=== PATIENT | female | born 1945 | race Caucasian/White ===

== ENCOUNTER → 2018-02-13 10:07 | Outpatient (CLI) | payer MEDICARE, OTHER, SELFPAY | PROVIDERS: PCP Student in an Organized Health Care Education/Training Program; Visit Provider Student in an Organized Health Care Education/Training Program | DX: M85.80 Other specified disorders of bone density and structure, unspecified site (principal); M81.0 Age-related osteoporosis without current pathological fracture | CPT/HCPCS: 77080 ==

== ENCOUNTER 2018-04-13 11:44 | Day surgery (SDC) | payer MEDICARE, OTHER, SELFPAY ==
--- NOTE | 2018-04-13 | PATH.2_ITS ---
[facility] Accession Number: [id number] . 01 Material submitted: . 5MM CECAL POLYP . 02 Diagnosis: Cecum, 5 mm Polyp, Biopsy: Tubular adenoma. MRV/04/14/2018 . 02 Electronically signed: . Roxana Alves MD, Pathologist NPI- [id number] . 01 Gross description: . Received in one formalin-filled container, labeled with the patient's name and labeled 5 mm cecal polyp, are three 0.2-0.4 cm portions of tissue, entirely submitted in one cassette. ([id number]) /FRR . 02 Pathologist provided ICD-10: D12.0 . 02 CPT . 101428 Performed at: 01 [facility] [address] [place] [address], [place], [place] [id number] MD Shad Bennett MD Phone: [phone] Performed at: 02 [facility] [address] [place], [place] [id number] MD Roxana Alves MD Phone: [phone]
[2018-04-13 12:22] VITALS: BP 162/72; PULSE 82; RESP 15; TEMP 36.5; O2SAT 100; BMI 25.7
[2018-04-13] MEDS: SODIUM CHLORIDE 0.9% 1,000 ML 200 ML IV (12:27)
--- NOTE | 2018-04-13 12:29 | PM.HP.1 ---
History of Present Illness Chief complaint: [id number] Colonoscopy Patient History Surgical History No history of previous surgery (Chronic) Family History Father No problems noted. Mother No problems noted. Social History household members: spouse Smoking Status: Never smoker Family & Social History Social History: household members spouse Tobacco & Substance use: Smoking Status Never smoker Meds Home Medications Medication Instructions Recorded Confirmed Type MULTIVITAMIN (One Daily 1 tab PO QDAY #0 08/07/11 01/29/18 History Multivitamin) [Vitamin D3] 10,000 iu QDAY #0 08/07/11 01/29/18 History ibuprofen 200 - 600 mg PO TIDP PRN #270 tab 05/07/16 01/29/18 Rx methotrexate sodium 6 tab PO QWEEK #0 06/13/16 01/29/18 History folic acid 1 mg PO QDAY #0 01/20/17 01/29/18 History Lancets See Rx Instructions .ROUTE .QDAY 11/04/17 01/29/18 Rx #100 Test Strips - Freestyle See Rx Instructions .ROUTE QDAY 11/04/17 01/29/18 Rx #100 sitagliptin 50 mg-metformin 1,000 1 tab PO BID #60 tab 11/28/17 01/29/18 Rx mg tablet glipizide 10 mg tablet 10 mg PO BID #98 tab 01/16/18 01/29/18 Rx aspirin 81 mg tablet,delayed 81 mg PO DAILY #30 tab 01/29/18 Rx release clopidogrel 75 mg tablet 75 mg PO QDAY #90 tab 02/18/18 Rx ibandronate 150 mg tablet 150 mg PO QMONTH #1 tab 02/19/18 Rx lisinopril 40 mg tablet 40 mg PO Q DAY #90 tab 02/23/18 Rx simvastatin 20 mg tablet 20 mg PO BEDTIME #90 tab 02/23/18 Rx levothyroxine 100 mcg tablet 100 mcg PO QAM #90 tab 03/03/18 Rx sitagliptin-metformin [Janumet] 1 tab PO BID 04/13/18 04/13/18 History Allergies Allergy/AdvReac Type Severity Reaction Status Date / Time No Known Drug Allergies Allergy Unverified 01/29/18 10:54 Exam Vital Signs (past 8 hours): - 04/13/18 12:22 Temperature 97.7 F Pulse Rate 82 Respiratory Rate 15 Blood Pressure 162/72 H Pulse Oximetry 100 Oxygen Delivery Method Room Air Narrative Exam Narrative: Patient is alert and oriented with no abdominal pain. Lungs are clear with no rales or wheezes heart regular rhythm no murmur abdominal exam soft and nontender no masses rectal exam will be done at time of colonoscopy Assessment & Plan Assessment & Plan narrative: Patient is here for screening colonoscopy is asymptomatic we will proceed with that today patient understands and agrees to the procedure she has had prior colonoscopy with no polyps in her history
[2018-04-13] MEDS: MIDAZOLAM 5 MG/5 ML VIAL IV (12:46)
[2018-04-13] MEDS: fentaNYL 250 MCG/5 ML INJ IV (12:47)
[2018-04-13 13:18] VITALS: BP 153/72; PULSE 82; RESP 16; TEMP 36.4; O2SAT 99
--- NOTE | 2018-04-13 13:19 | PM.OP.1 ---
Operative Date/Time/Diagnoses Date of procedure: 04/13/18 Time of procedure: 13:19 Pre-op diagnosis: Screening colonoscopy asymptomatic Procedure & Clinicians Procedure: Colonoscopy to the cecum with biopsy of cecal polyp Same procedure as scheduled: Yes Click Yes if Unassisted: Yes Anesthesia Type: Sedation Operative Notes Findings: Patient had pandiverticulosis she also had a 5 mm flat polyp in the cecum which I removed with the cold forceps Procedure in detail: Patient was properly identified during surgical pause flexible fiberoptic colonoscope was inserted transanally to the cecum this was done under conscious sedation with Versed and fentanyl. Patient has pantoja diverticulosis she also had a flat 5 mm polyp in the cecum which are removed with cold forceps this was submitted for histopathology procedure is well tolerated Condition: stable Disposition: PACU
[2018-04-13 14:04] VITALS: BP 153/79; PULSE 72; RESP 16; TEMP 37.5; O2SAT 100
== END 2018-04-13 14:18 ==
LOC: ENDO 11:45
PROVIDERS: PCP Student in an Organized Health Care Education/Training Program; Visit Provider Surgery
PROC: 0DJD8ZZ Inspection of Lower Intestinal Tract, Via Natural or Artificial Opening Endoscopic (ICD-10-PCS; CPT 45378; principal; 2018-04-13 13:00)
DX: Z12.11 Encounter for screening for malignant neoplasm of colon (principal); D12.0 Benign neoplasm of cecum
CPT/HCPCS: 45380; 88305; J2250; J3010

== ENCOUNTER → 2020-02-10 12:04 | Outpatient (CLI) | payer MEDICARE, OTHER, SELFPAY ==
[2020-02-10 13:59] LABS: BUN Creatinine Ratio 19.3 (6-22); Blood Urea Nitrogen 17 mg/dL (7-17); Calcium 10.1 mg/dL (8.4-10.2); Carbon Dioxide 21 mmol/L (22-32); Chloride 102 mmol/L (98-107); Estimated Glomerular Filt Rate > 60.0 mL/min (>60); Glucose 328 mg/dL (80-110); HEMOLYSIS < 15 (0-50); Potassium 4.5 mmol/L (3.4-5.1); Sodium 136 mmol/L (137-145)
[2020-02-10 14:01] LABS: Hemoglobin A1C% w Est Avg Glu 8.8 % (4.0-6.0)
== END ==
PROVIDERS: PCP Student in an Organized Health Care Education/Training Program; Referring Provider Student in an Organized Health Care Education/Training Program; Visit Provider Student in an Organized Health Care Education/Training Program
DX: E11.9 Type 2 diabetes mellitus without complications (principal); I10 Essential (primary) hypertension
CPT/HCPCS: 36415; 80048; 83036

== ENCOUNTER → 2020-05-15 11:58 | Outpatient (CLI) | payer MEDICARE, OTHER, SELFPAY ==
[2020-05-15 12:52] LABS: Hemoglobin A1C% w Est Avg Glu 9.1 % (4.0-6.0)
[2020-05-15 12:58] LABS: Alanine Aminotransferase 38 IU/L (<35); Albumin 4.6 g/dL (3.5-5.0); Albumin Globulin Ratio 1.9 (1.0-2.8); Alkaline Phosphatase 71 U/L (38-126); Aspartate Aminotransferase 43 IU/L (14-36); Bilirubin Total 0.3 mg/dL (0.2-1.3); Blood Urea Nitrogen 16 mg/dL (7-17); Calcium 9.7 mg/dL (8.4-10.2); Carbon Dioxide 24 mmol/L (22-32); Chloride 102 mmol/L (98-107); Estimated Glomerular Filt Rate > 60.0 mL/min (>60); Globulin 2.4 g/dL (1.7-4.1); Glucose 217 mg/dL (80-110); HEMOLYSIS < 15 (0-50); Potassium 4.1 mmol/L (3.4-5.1); Sodium 137 mmol/L (137-145)
== END ==
PROVIDERS: PCP Student in an Organized Health Care Education/Training Program; Referring Provider Student in an Organized Health Care Education/Training Program; Visit Provider Student in an Organized Health Care Education/Training Program
DX: E11.9 Type 2 diabetes mellitus without complications (principal); E83.52 Hypercalcemia; I10 Essential (primary) hypertension
CPT/HCPCS: 36415; 80053; 83036

== ENCOUNTER → 2020-05-16 15:53 | Outpatient (CLI) | payer MEDICARE, OTHER, SELFPAY ==
[2020-05-16 16:07] LABS: Appearance Urine UA CLEAR; Bilirubin Urine UA NEGATIVE (NEGATIVE); Color Urine UA YELLOW; Glucose Urine UA NEGATIVE (Negative); Ketones Urine UA NEGATIVE (NEGATIVE); Leukocyte Esterase Urine UA TRACE (NEGATIVE); Nitrite Urine UA NEGATIVE (Negative); Occult Blood Urine UA NEGATIVE (Negative); Protein Urine UA NEGATIVE (Negative); Specific Gravity Urine UA 1.025 (1.000-1.035); Urobilinogen Urine UA 0.2 E.U./dL (0.2)
[2020-05-16 16:18] LABS: Bacteria Urine Occasional (0-1); RBC Urine 0-1/HPF (0-5/HPF); Squamous Epithelial Cell Urine 0-1 /HPF (0-5/HPF); WBC Urine 5-10/HPF (0-5/HPF)
[2020-05-16 17:32] LABS: Creatinine Urine Random 59.3 mg/dL
[2020-05-16 17:40] LABS: Microalbumi Creatinin Ratio Ur 13.4 ug/mg CR (<30); Microalbumin Urine Random 0.8 mg/dL (0-1.6)
== END ==
PROVIDERS: PCP Student in an Organized Health Care Education/Training Program; Referring Provider Student in an Organized Health Care Education/Training Program; Visit Provider Student in an Organized Health Care Education/Training Program
DX: E11.9 Type 2 diabetes mellitus without complications (principal); E83.52 Hypercalcemia; I10 Essential (primary) hypertension
CPT/HCPCS: 81001; 82043; 82570

== ENCOUNTER → 2020-05-29 12:59 | Outpatient (CLI) | payer MEDICARE, OTHER, SELFPAY | PROVIDERS: PCP Student in an Organized Health Care Education/Training Program; Referring Provider Student in an Organized Health Care Education/Training Program; Visit Provider Student in an Organized Health Care Education/Training Program | DX: M85.852 Other specified disorders of bone density and structure, left thigh (principal); Z78.0 Asymptomatic menopausal state; M06.9 Rheumatoid arthritis, unspecified; E11.9 Type 2 diabetes mellitus without complications; Z82.62 Family history of osteoporosis | CPT/HCPCS: 77080 ==

== ENCOUNTER 2020-10-30 11:15 | Outpatient (RCR) | payer MEDICARE, OTHER, SELFPAY ==
--- NOTE | 2020-07-04 16:56 | PT.OIE ---
Current Diagnoses Stiffness of unspecified hip, not elsewhere classified (07/04/20) Muscle weakness (generalized) (07/04/20) Other abnormalities of gait and mobility (07/04/20) Unspecified urinary incontinence (07/04/20) Urgency of urination (07/04/20) Past Medical History (Last Updated 05/21/20 @ 20:38 by Tl Kamara MD) Acquired hypothyroidism (12/13/14) Bilateral carotid artery stenosis (04/18/17) Cataracts, bilateral (2012) Coronary artery stenosis Diabetes (~1996) Essential hypertension (12/13/14) GERD (gastroesophageal reflux disease) Gout Gout involving toe (09/27/15) History of stroke (04/18/17) Hyperlipemia Hyperuricemia (09/27/15) Hypothyroidism Osteopenia (06/28/16) Osteopenia Rheumatoid arthritis (~1996) Shoulder fracture, right (05/2016) Stroke (2009) Type 2 diabetes mellitus without complication, without long-term current use of insulin (12/20/16) Past Surgical History (Last Updated 05/21/20 @ 20:38 by Tl Kamara MD) No history of previous surgery Visit Care Team Role Provider Type Tl Kamara MD Attending Provider Physician Family Provider Primary Care Provider Referring Provider Specialty: Internal Medicine Address: [address] [place] [address], [address], [facility] Email: [email or web address] Physical Therapy Initial Evaluation PT-OP-A Visit Information Start: 06/29/20 18:09 Freq: Status: Active Protocol: Document 07/04/20 12:46 LRN (Rec: 07/04/20 13:38 LRN [id number]) Out-Patient Physical Therapy Visit Information Visit Information Visit Type Initial Evaluation Visit Start Time 12:46 Visit Stop Time 13:36 Total Visit Minutes 50 Visit Number 1 Evaluation Information Evaluation Date 07/04/20 Precautions Precautions PMH per pt: L CVA - 2009, Diabetes II, neuropathy in juana feet, RA, Osteopenia, arthriscopic R knee surgery 2007, dizziness, controlled HBP, falls (almost fell last week while carrying groceries up stairs, last fall was 4 yrs ago when tripped on cat and fractured R shoulder). PT-OP-B Current Condition Start: 06/29/20 18:09 Freq: Status: Active Protocol: Document 07/04/20 12:46 LRN (Rec: 07/04/20 13:38 LRN [id number]) Current Condition History of Current Condition Onset Date 1 yr ago with worsening in the past 6 months Current Complaints Urinary incontinence at night and sometimes durig the day. History of Current Condition Urinary urgency and incontinence. Once recognizes she has to urinate she is not able to make it to the toilet to urinate. During the nighttime and sometimes during the day. Has been doing some exercises given by Dr. Kamara and it has helped. Prior Treatments and Tests Exercises given by Dr. Kamara. Future Testing and Treatments Planned None Developmental History Developmental History Has had 2 vaginal births with no complications. Had urinary leakage during second but not afterwards. Has had L CVA with R sided weakness (pt is R handed), but did not affect urinary continence. Treatment Goals Patient/Caregiver Goals Pt goal is to not have to use depends and be able to make it to bathroom without leaking, and to be able to return to an exercise gym routine at [employer]. Prior Functional Status Baseline Function- ADL's Independent Baseline Function- Mobility Independent Baseline Function- Gait Ambs with step to gait due to L CVA Baseline Function- Recreation/Hobbies Exercised at [employer] prior to pandemic. Baseline Function- Other No urinary leakage 1 yr ago. Was able to go to [place] to [place] (30 minutes) without leakage, but needed to use bathroom in [place]. Current Functional Impairments (Reported) Functional Limitations- ADL's Urinary leakage after travelling from [place] to [place] (30 minutes). Functional Limitations- Recreation/ Has not returned to [employer] for exercise. 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 PT-OP-C Subjective Start: 06/29/20 18:09 Freq: Status: Active Protocol: Document 07/04/20 12:46 LRN (Rec: 07/04/20 13:38 LRN [id number]) Patient Questionnaires Pelvic Pain and Urgency/Frequency Patient Symptom Scale Pelvic Pain Score 7 PT-OP-J Posture/Palpation/Skin Start: 06/29/20 18:09 Freq: Status: Active Protocol: Document 07/04/20 12:46 LRN (Rec: 07/04/20 13:38 LRN [id number]) Posture Evaluation Position Standing Head/C-Spine Posture Forward Head Pelvis Posture Anteriorly Tilted Weight Distribution Balanced Hip Posture (L) Externally Rotated,(R) Externally Rotated Ankle/Foot Posture (L) Forefoot Abducted,(R) Forefoot Abducted Comments Posture Comments Wide stance, 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 PT-OP-K Range of Motion Start: 06/29/20 18:09 Freq: Status: Active Protocol: Document 07/04/20 12:46 LRN (Rec: 07/04/20 13:38 LRN [id number]) Hip Goniometric Range of Motion Hip Right Passive Hip ROM WFL No Testing Position Supine Straight Leg Raise 75 Abduction 32 Internal Rotation 20 External Rotation 70 Comments PSLR limited by hamstring tightness. Left Passive Testing Position Supine Straight Leg Raise 80 Abduction 39 Internal Rotation 25 External Rotation 75 Comments PSLR limited by medial/lateral knee pain PT-OP-M Strength Start: 06/29/20 18:09 Freq: Status: Active Protocol: Document 07/04/20 12:46 LRN (Rec: 07/04/20 13:38 LRN [id number]) Trunk Strength Trunk Manual Muscle Testing Core Stabilization Poor core stabilization with MMT of LE's. Hip Strength Hip Manual Muscle Testing Right Flexion (L2) 3 Fair Extension (S1) 3- Fair- Abduction 3 Fair Adduction 2 Poor External Rotation 3- Fair- Internal Rotation 3+ Fair+ Left Flexion (L2) 3+ Fair+ Extension (S1) 3+ Fair+ Abduction 3 Fair Adduction 2+ Poor+ External Rotation 3 Fair Internal Rotation 2+ Poor+ Comments Hip flex: pelvis rotates left (decreased R rot strength) PT-OP-Q Treatments Start: 06/29/20 18:09 Freq: Status: Active Protocol: Document 07/04/20 12:46 LRN (Rec: 07/04/20 13:38 LRN [id number]) Self-Care/Home Management Treatment Education Other Education Educated and discussed results of evaluation, discussed goals and plan of care, pt agreeable. Activities Self-Care/Home Management Activities Issued handouts for bladder diary with instructions in completion of filling out diary for 7 days. Issued & reviewed how to perform a Kegel exercise. Pt to continue exercises given by her referring physician. PT-OP-T Assessment and Plan Start: 06/29/20 18:09 Freq: Status: Active Protocol: Document 07/04/20 12:46 LRN (Rec: 07/04/20 13:38 LRN [id number]) Physical Therapy Assessment Rehab Potential Rehabilitation Potential Good Evaluation Complexity Number of Personal Factors/Comorbidities 1-2 Number of Body Systems Impaired 4 or More Clinical Presentation at Evaluation Evolving Impairments Impairments Activity Tolerance,Balance,ROM ,Soft Tissue Mobility,Strength Goals Four Impairment Decreased R LE and core strength Short Term Goal (STG) Pt will be independent in a HEP of hip and core stengthening exercises. STG Duration 08/24/20 [place] Farmer Goal (LTG) Pt will be able to stabilize her core during ex's of her LE 's. LTG Duration 10/02/20 Three Impairment Urinary incontinence (pt not able to make it to bathroom without leaking) Short Term Goal (STG) Pt will be able to perform a PF contraction in the absence of abdominal/gluteal muscles, and will be educated in urinary delay technique. STG Duration 07/28/20 Halfway Goal (LTG) With an urge to urinate, pt will be able to maintain urinary continence in the presence of a strong urge in order to make it to the bathroom without leaking. LTG Duration 10/02/20 Two Impairment Urinary leakage requiring use of depends daily Short Term Goal (STG) Improve PF strength with pt able to decrease use of depends pad. STG Duration 08/24/20 Halfway Goal (LTG) Pt will not have to use depends daily and will be able to decrease pad use to a mini pad daily. LTG Duration 10/02/20 One Impairment Lacks appropriate self care HEP. Short Term Goal (STG) Pt will be aware of the sensation of a proper PF contraction. STG Duration 07/28/20 Halfway Goal (LTG) Pt will be independent in a self care HEP for PF strengthening. LTG Duration 10/02/20 Assessment Summary Assessment Pt is a 74 yo female who has had reportedly progressive weakening of the R side of her body to almost post-stroke like condition during the COVID pandemic. She has noticed with her progressive weakening she has become urinary incontinent in the presence of an urge during the day and nighttime. She presents with decreased posture, decreased core & hip strength, decreased hip mobility (mainly IR) with the right worse than left. Extra time was taken throughout the assessment due to the slower nature of the patient in responding and moving and because she was hesitiation to have her PF examined; physical assessment of the PF was held until next visit. The pt also demonstrates unsteadiness in standing and a step to independent gait. The pt will benefit from skilled physical therapy for pelvic floor rehab and for strengthening of her LE's and core. Physical Therapy Plan Frequency and Duration Frequency of Treatment 1x/Week Plan of Care Start Date 07/04/20 Plan of Care End Date 10/02/20 Therapeutic Interventions Therapeutic Interventions Home Exercise Program,Joint Mobilizations,Manual Therapy, Neuromuscular Re-education, Patient/Caregiver Education, Self-Care/Home Management,Soft Tissue Mobilization, Therapeutic Activities, Therapeutic Exercises Modalities Biofeedback,Electric Stimulation Next Visit Focus/Plan Next Note Type Treatment Note Next Visit Plan Assess PF, review bladder diary and discuss foods, and water intake, pt education in proper Kegel without use of substitute muscles, pt education in proper perineum care, deep breathing and transfers, PF/core/hip strengthening, improve hip mobility, assess abdominal soft tissue (bladder) mobility .
--- NOTE | 2020-07-11 12:32 | PT.OTN ---
Current Diagnoses Stiffness of unspecified hip, not elsewhere classified (07/11/20) Muscle weakness (generalized) (07/11/20) Other abnormalities of gait and mobility (07/11/20) Unspecified urinary incontinence (07/11/20) Urgency of urination (07/11/20) Physical Therapy Treatment Note PT-OP-A Visit Information Start: 06/29/20 18:09 Freq: Status: Active Protocol: Document 07/11/20 11:19 LRN (Rec: 07/11/20 12:32 LRN [id number]) Out-Patient Physical Therapy Visit Information Visit Information Visit Type Treatment Note Visit Start Time 11:19 Visit Stop Time 12:00 Total Visit Minutes 41 Visit Number 2 Evaluation Information Evaluation Date 07/04/20 Precautions Precautions PMH per pt: L CVA - 2009, Diabetes II, neuropathy in juana feet, RA, Osteopenia, arthriscopic R knee surgery 2007, dizziness, controlled HBP, falls (almost fell last week while carrying groceries up stairs, last fall was 4 yrs ago when tripped on cat and fractured R shoulder). PT-OP-B Current Condition Start: 06/29/20 18:09 Freq: Status: Active Protocol: Document 07/04/20 12:46 LRN (Rec: 07/04/20 13:38 LRN [id number]) Current Condition History of Current Condition Onset Date 1 yr ago with worsening in the past 6 months Current Complaints Urinary incontinence at night and sometimes durig the day. History of Current Condition Urinary urgency and incontinence. Once recognizes she has to urinate she is not able to make it to the toilet to urinate. During the nighttime and sometimes during the day. Has been doing some exercises given by Dr. Kamara and it has helped. Prior Treatments and Tests Exercises given by Dr. Kamara. Future Testing and Treatments Planned None Developmental History Developmental History Has had 2 vaginal births with no complications. Had urinary leakage during second but not afterwards. Has had L CVA with R sided weakness (pt is R handed), but did not affect urinary continence. Treatment Goals Patient/Caregiver Goals Pt goal is to not have to use depends and be able to make it to bathroom without leaking, and to be able to return to an exercise gym routine at [employer]. Prior Functional Status Baseline Function- ADL's Independent Baseline Function- Mobility Independent Baseline Function- Gait Ambs with step to gait due to L CVA Baseline Function- Recreation/Hobbies Exercised at [employer] prior to pandemic. Baseline Function- Other No urinary leakage 1 yr ago. Was able to go to [place] to [place] (30 minutes) without leakage, but needed to use bathroom in [place]. Current Functional Impairments (Reported) Functional Limitations- ADL's Urinary leakage after travelling from [place] to [place] (30 minutes). Functional Limitations- Recreation/ Has not returned to [employer] for exercise. 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 PT-OP-C Subjective Start: 06/29/20 18:09 Freq: Status: Active Protocol: Document 07/11/20 11:19 LRN (Rec: 07/11/20 12:32 LRN [id number]) OP-PT Subjective Patient Comments Patient Comments Good, did bladder diary. PT-OP-I Pelvic Floor Start: 06/29/20 18:09 Freq: Status: Active Protocol: Document 07/11/20 11:19 LRN (Rec: 07/11/20 12:32 LRN [id number]) Pelvic Floor Assessment Pelvic Clock Pelvic Clock 3-6 Tightness Pelvic Clock Other Pelvic Clock 3-6: Weakness and tightness of deep PF muscles. Prolapse Prolapse Comments Poor visualization due to small vaginal opening. No apparent prolapse. Contraction Ability Voluntary Relaxation Moderate Manual Muscle Testing Right 3 Manual Muscle Testing Anterior 1 Manual Muscle Testing Posterior 3 Muscle Endurance (Seconds) 3 Comments Pelvic Floor Comments MMT Left: Quick Flicks 0/5, Long holds, 3 secs. Quick Flicks: 10 on R side Muscle Endurance: 3 secs, weaker contraction on left. Deep PF: tight left side, weak left side. PT-OP-J Posture/Palpation/Skin Start: 06/29/20 18:09 Freq: Status: Active Protocol: Document 07/04/20 12:46 LRN (Rec: 07/04/20 13:38 LRN [id number]) Posture Evaluation Position Standing Head/C-Spine Posture Forward Head Pelvis Posture Anteriorly Tilted Weight Distribution Balanced Hip Posture (L) Externally Rotated,(R) Externally Rotated Ankle/Foot Posture (L) Forefoot Abducted,(R) Forefoot Abducted Comments Posture Comments Wide stance, 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 PT-OP-K Range of Motion Start: 06/29/20 18:09 Freq: Status: Active Protocol: Document 07/04/20 12:46 LRN (Rec: 07/04/20 13:38 LRN [id number]) Hip Goniometric Range of Motion Hip Right Passive Hip ROM WFL No Testing Position Supine Straight Leg Raise 75 Abduction 32 Internal Rotation 20 External Rotation 70 Comments PSLR limited by hamstring tightness. Left Passive Testing Position Supine Straight Leg Raise 80 Abduction 39 Internal Rotation 25 External Rotation 75 Comments PSLR limited by medial/lateral knee pain PT-OP-M Strength Start: 06/29/20 18:09 Freq: Status: Active Protocol: Document 07/04/20 12:46 LRN (Rec: 07/04/20 13:38 LRN [id number]) Trunk Strength Trunk Manual Muscle Testing Core Stabilization Poor core stabilization with MMT of LE's. Hip Strength Hip Manual Muscle Testing Right Flexion (L2) 3 Fair Extension (S1) 3- Fair- Abduction 3 Fair Adduction 2 Poor External Rotation 3- Fair- Internal Rotation 3+ Fair+ Left Flexion (L2) 3+ Fair+ Extension (S1) 3+ Fair+ Abduction 3 Fair Adduction 2+ Poor+ External Rotation 3 Fair Internal Rotation 2+ Poor+ Comments Hip flex: pelvis rotates left (decreased R rot strength) PT-OP-Q Treatments Start: 06/29/20 18:09 Freq: Status: Active Protocol: Document 07/11/20 11:19 LRN (Rec: 07/11/20 12:32 LRN [id number]) Therapeutic Exercises Supine Exercises PF contraction Supine Exercise Name PF training in isolation of substitute muscles. Reps/Minutes 9' Comments PF assessment performed Deep Breathing Supine Exercise Name Deep Breathing Reps/Minutes 3' Comments Training for slower breaths Self-Care/Home Management Treatment Education Patient Education Home Exercise Program Other Education Discussed all aspects of pt's bladder diary with recognition of norm values for hydration, voiding times, times between voids, addition of drinks with non-acidic fruits, thirst mechanism. Activities Self-Care/Home Management Activities I/S in deep breathing over 5-6 secs, isolation of PF muscles from abdominal/gluteal and hip AD muscles. Issued & reviewed Urinary delay technique. PT-OP-T Assessment and Plan Start: 06/29/20 18:09 Freq: Status: Active Protocol: Document 07/11/20 11:19 LRN (Rec: 07/11/20 12:32 LRN [id number]) Physical Therapy Assessment Goals Four Impairment Decreased R LE and core strength Short Term Goal (STG) Pt will be independent in a HEP of hip and core stengthening exercises. STG Duration 08/24/20 [employer] Consultant Goal (LTG) Pt will be able to stabilize her core during ex's of her LE 's. LTG Duration 10/02/20 Three Impairment Urinary incontinence (pt not able to make it to bathroom without leaking) Short Term Goal (STG) Pt will be able to perform a PF contraction in the absence of abdominal/gluteal muscles, and will be educated in urinary delay technique. (07/11/20: Initiated training for isolation of PF contraction & urinary delay techinque) STG Duration 07/28/20 (07/11/20: Progressed ) Usp Goal (LTG) With an urge to urinate, pt will be able to maintain urinary continence in the presence of a strong urge in order to make it to the bathroom without leaking. LTG Duration 10/02/20 Two Impairment Urinary leakage requiring use of depends daily Short Term Goal (STG) Improve PF strength with pt able to decrease use of depends pad. STG Duration 08/24/20 Regional Engagement Consultant Goal (LTG) Pt will not have to use depends daily and will be able to decrease pad use to a mini pad daily. LTG Duration 10/02/20 One Impairment Lacks appropriate self care HEP. Short Term Goal (STG) Pt will be aware of the sensation of a proper PF contraction. STG Duration 07/28/20 Usp Goal (LTG) Pt will be independent in a self care HEP for PF strengthening. LTG Duration 10/02/20 (07/11/20: Progressed) Progress Towards Goals Progress Comments Verbal progression of self care and HEP. Assessment Summary Assessment Pt presents with poor PF tissue health with thin drying skin and mild increased redness. Her vaginal tissued are increased in redness but health (not dry). She has tightness of L deep PF and hip ER's, as well as weak in her superficial PF muscles. Endurance is decreased to 3 secs. Review of bladder diary shows pt is drinking ~1/2 of recommended values (of 1/2 body weight, but pt is receptive to increasing fluids . The pt uses substitute ms to obtain a PF contraction; therefore further training and PF awareness for proper contraction is needed. Physical Therapy Plan Frequency and Duration Frequency of Treatment 1x/Week Plan of Care Start Date 07/04/20 Plan of Care End Date 10/02/20 Next Visit Focus/Plan Next Note Type Treatment Note Next Visit Plan Review proper Kegel without use of substitute muscles & deep breathing. Pt education in proper perineum care and proper breathing with transfers, PF/core/hip strengthening, improve hip mobility, assess abdominal soft tissue (bladder) mobility .
--- NOTE | 2020-07-25 17:12 | PT.OTN ---
Current Diagnoses Stiffness of unspecified hip, not elsewhere classified (07/25/20) Muscle weakness (generalized) (07/25/20) Other abnormalities of gait and mobility (07/25/20) Unspecified urinary incontinence (07/25/20) Urgency of urination (07/25/20) Physical Therapy Treatment Note PT-OP-A Visit Information Start: 06/29/20 18:09 Freq: Status: Active Protocol: Document 07/25/20 11:18 LRN (Rec: 07/25/20 12:15 LRN [id number]) Out-Patient Physical Therapy Visit Information Visit Information Visit Type Treatment Note Visit Start Time 11:18 Visit Stop Time 12:08 Total Visit Minutes 50 Visit Number 3 Evaluation Information Evaluation Date 07/04/20 Precautions Precautions PMH per pt: L CVA - 2009, Diabetes II, neuropathy in juana feet, RA, Osteopenia, arthriscopic R knee surgery 2007, dizziness, controlled HBP, falls (almost fell last week while carrying groceries up stairs, last fall was 4 yrs ago when tripped on cat and fractured R shoulder). PT-OP-B Current Condition Start: 06/29/20 18:09 Freq: Status: Active Protocol: Document 07/04/20 12:46 LRN (Rec: 07/04/20 13:38 LRN [id number]) Current Condition History of Current Condition Onset Date 1 yr ago with worsening in the past 6 months Current Complaints Urinary incontinence at night and sometimes durig the day. History of Current Condition Urinary urgency and incontinence. Once recognizes she has to urinate she is not able to make it to the toilet to urinate. During the nighttime and sometimes during the day. Has been doing some exercises given by Dr. Kamara and it has helped. Prior Treatments and Tests Exercises given by Dr. Kamara. Future Testing and Treatments Planned None Developmental History Developmental History Has had 2 vaginal births with no complications. Had urinary leakage during second but not afterwards. Has had L CVA with R sided weakness (pt is R handed), but did not affect urinary continence. Treatment Goals Patient/Caregiver Goals Pt goal is to not have to use depends and be able to make it to bathroom without leaking, and to be able to return to an exercise gym routine at [employer]. Prior Functional Status Baseline Function- ADL's Independent Baseline Function- Mobility Independent Baseline Function- Gait Ambs with step to gait due to L CVA Baseline Function- Recreation/Hobbies Exercised at [employer] prior to pandemic. Baseline Function- Other No urinary leakage 1 yr ago. Was able to go to [place] to [place] (30 minutes) without leakage, but needed to use bathroom in [place]. Current Functional Impairments (Reported) Functional Limitations- ADL's Urinary leakage after travelling from [place] to [place] (30 minutes). Functional Limitations- Recreation/ Has not returned to [employer] for exercise. 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 PT-OP-C Subjective Start: 06/29/20 18:09 Freq: Status: Active Protocol: Document 07/25/20 11:18 LRN (Rec: 07/25/20 12:15 LRN [id number]) OP-PT Subjective Patient Comments Patient Comments No bleeding after last exam. Had sex (penis at opening) since last in. She had no problems, no bleeding. PT-OP-I Pelvic Floor Start: 06/29/20 18:09 Freq: Status: Active Protocol: Document 07/11/20 11:19 LRN (Rec: 07/11/20 12:32 LRN [id number]) Pelvic Floor Assessment Pelvic Clock Pelvic Clock 3-6 Tightness Pelvic Clock Other Pelvic Clock 3-6: Weakness and tightness of deep PF muscles. Prolapse Prolapse Comments Poor visualization due to small vaginal opening. No apparent prolapse. Contraction Ability Voluntary Relaxation Moderate Manual Muscle Testing Right 3 Manual Muscle Testing Anterior 1 Manual Muscle Testing Posterior 3 Muscle Endurance (Seconds) 3 Comments Pelvic Floor Comments MMT Left: Quick Flicks 0/5, Long holds, 3 secs. Quick Flicks: 10 on R side Muscle Endurance: 3 secs, weaker contraction on left. Deep PF: tight left side, weak left side. 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 PT-OP-K Range of Motion Start: 06/29/20 18:09 Freq: Status: Active Protocol: Document 07/04/20 12:46 LRN (Rec: 07/04/20 13:38 LRN [id number]) Hip Goniometric Range of Motion Hip Right Passive Hip ROM WFL No Testing Position Supine Straight Leg Raise 75 Abduction 32 Internal Rotation 20 External Rotation 70 Comments PSLR limited by hamstring tightness. Left Passive Testing Position Supine Straight Leg Raise 80 Abduction 39 Internal Rotation 25 External Rotation 75 Comments PSLR limited by medial/lateral knee pain PT-OP-M Strength Start: 06/29/20 18:09 Freq: Status: Active Protocol: Document 07/04/20 12:46 LRN (Rec: 07/04/20 13:38 LRN [id number]) Trunk Strength Trunk Manual Muscle Testing Core Stabilization Poor core stabilization with MMT of LE's. Hip Strength Hip Manual Muscle Testing Right Flexion (L2) 3 Fair Extension (S1) 3- Fair- Abduction 3 Fair Adduction 2 Poor External Rotation 3- Fair- Internal Rotation 3+ Fair+ Left Flexion (L2) 3+ Fair+ Extension (S1) 3+ Fair+ Abduction 3 Fair Adduction 2+ Poor+ External Rotation 3 Fair Internal Rotation 2+ Poor+ Comments Hip flex: pelvis rotates left (decreased R rot strength) PT-OP-Q Treatments Start: 06/29/20 18:09 Freq: Status: Active Protocol: Document 07/25/20 11:18 LRN (Rec: 07/25/20 12:15 LRN [id number]) Therapeutic Exercises Supine Exercises Long Hold PF contraction Supine Exercise Name 5 Long Hold PF contraction Reps/Minutes 4' Comments Extra time for training for double time relaxation & PF isolation PF contraction Supine Exercise Name PF training in isolation of substitute muscles. Reps/Minutes 9' (Quick Flicks and Long Holds) Comments PF assessment performed Sidelying Exercises PF w/Hip AD Sidelying Exercise Name PF w/Hip AD (R foot in front of L LE) Side left Reps/Minutes 4' Comments Extra time taken to find best position to ex Standing Exercises Bladder retraining Standing Exercise Name Bladder retraining for going to bathroom Reps/Minutes 18' Comments Practiced delay technique as if in AM. Self-Care/Home Management Treatment Education Patient Education Home Exercise Program Other Education Answered pt's questions regarding bladder retrainng and foods/fluids intake. And discussed amounts. Pt has handouts on bladder irritant foods and fluids. Educated pt at length in Genital hygiene for Women & General Vulvar Care with handout issued. Activities Self-Care/Home Management Activities Written I/S for adding HEP: Quick Flicks with L hip AD in sidelie to improve L lateral wall strength. Pt to work on: Delay technique for first in morning , Deep Breathing of 5-6 secs, PF Quick Flicks with L hip AD & Long Holds of 5 secs. PT-OP-T Assessment and Plan Start: 06/29/20 18:09 Freq: Status: Active Protocol: Document 07/25/20 11:18 LRN (Rec: 07/25/20 12:15 LRN [id number]) Physical Therapy Assessment Goals Four Impairment Decreased R LE and core strength Short Term Goal (STG) Pt will be independent in a HEP of hip and core stengthening exercises. STG Duration 08/24/20 Tourism Radio Presenter Goal (LTG) Pt will be able to stabilize her core during ex's of her LE 's. LTG Duration 10/02/20 Three Impairment Urinary incontinence (pt not able to make it to bathroom without leaking) Short Term Goal (STG) Pt will be able to perform a PF contraction in the absence of abdominal/gluteal muscles, and will be educated in urinary delay technique. STG Duration 07/28/20 (07/25/20: MET GOAL) Tourism Radio Presenter Goal (LTG) With an urge to urinate, pt will be able to maintain urinary continence in the presence of a strong urge in order to make it to the bathroom without leaking. (07/25/20: Continent except for first thing in the morning). LTG Duration 10/02/20 Two Impairment Urinary leakage requiring use of depends daily Short Term Goal (STG) Improve PF strength with pt able to decrease use of depends pad. STG Duration 08/24/20 Tourism Radio Presenter Goal (LTG) Pt will not have to use depends daily and will be able to decrease pad use to a mini pad daily. LTG Duration 10/02/20 One Impairment Lacks appropriate self care HEP. Short Term Goal (STG) Pt will be aware of the sensation of a proper PF contraction. STG Duration 07/28/20 Tourism Radio Presenter Goal (LTG) Pt will be independent in a self care HEP for PF strengthening. LTG Duration 10/02/20 (07/25/20: Progressed ) Progress Towards Goals Progress Comments Progression of HEP Assessment Summary Assessment Pt able to perform Quick flick ex's, and she feels the PF lift with long holds. Pt needs extra time with therapy for repetition and review with program. Physical Therapy Plan Frequency and Duration Frequency of Treatment 1x/Week Plan of Care Start Date 07/04/20 Plan of Care End Date 10/02/20 Next Visit Focus/Plan Next Note Type Treatment Note Next Visit Plan Review proper breathing with transfers, PF/core/hip strengthening, improve hip mobility, assess abdominal soft tissue (bladder) mobility .
--- NOTE | 2020-08-01 12:23 | PT.OTN ---
Current Diagnoses Stiffness of unspecified hip, not elsewhere classified (08/01/20) Muscle weakness (generalized) (08/01/20) Other abnormalities of gait and mobility (08/01/20) Unspecified urinary incontinence (08/01/20) Urgency of urination (08/01/20) Physical Therapy Treatment Note PT-OP-A Visit Information Start: 06/29/20 18:09 Freq: Status: Active Protocol: Document 08/01/20 11:14 LRN (Rec: 08/01/20 12:22 LRN [id number]) Out-Patient Physical Therapy Visit Information Visit Information Visit Type Treatment Note Visit Start Time 11:14 Visit Stop Time 12:07 Total Visit Minutes 52 Visit Number 4 Evaluation Information Evaluation Date 07/04/20 Precautions Precautions PMH per pt: L CVA - 2009, Diabetes II, neuropathy in juana feet, RA, Osteopenia, arthriscopic R knee surgery 2007, dizziness, controlled HBP, falls (almost fell last week while carrying groceries up stairs, last fall was 4 yrs ago when tripped on cat and fractured R shoulder). PT-OP-B Current Condition Start: 06/29/20 18:09 Freq: Status: Active Protocol: Document 07/04/20 12:46 LRN (Rec: 07/04/20 13:38 LRN [id number]) Current Condition History of Current Condition Onset Date 1 yr ago with worsening in the past 6 months Current Complaints Urinary incontinence at night and sometimes durig the day. History of Current Condition Urinary urgency and incontinence. Once recognizes she has to urinate she is not able to make it to the toilet to urinate. During the nighttime and sometimes during the day. Has been doing some exercises given by Dr. Kamara and it has helped. Prior Treatments and Tests Exercises given by Dr. Kamara. Future Testing and Treatments Planned None Developmental History Developmental History Has had 2 vaginal births with no complications. Had urinary leakage during second but not afterwards. Has had L CVA with R sided weakness (pt is R handed), but did not affect urinary continence. Treatment Goals Patient/Caregiver Goals Pt goal is to not have to use depends and be able to make it to bathroom without leaking, and to be able to return to an exercise gym routine at [employer]. Prior Functional Status Baseline Function- ADL's Independent Baseline Function- Mobility Independent Baseline Function- Gait Ambs with step to gait due to L CVA Baseline Function- Recreation/Hobbies Exercised at [employer] prior to pandemic. Baseline Function- Other No urinary leakage 1 yr ago. Was able to go to [place] to [place] (30 minutes) without leakage, but needed to use bathroom in [place]. Current Functional Impairments (Reported) Functional Limitations- ADL's Urinary leakage after travelling from [place] to [place] (30 minutes). Functional Limitations- Recreation/ Has not returned to [employer] for exercise. 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 PT-OP-C Subjective Start: 06/29/20 18:09 Freq: Status: Active Protocol: Document 08/01/20 11:14 LRN (Rec: 08/01/20 12:22 LRN [id number]) OP-PT Subjective Patient Comments Patient Comments Had an attack of Sciatic with L LE pain from back to end of toes, lasting 5 days. States in AM now leaks less or not at all using urinary delay technique. PT-OP-I Pelvic Floor Start: 06/29/20 18:09 Freq: Status: Active Protocol: Document 07/11/20 11:19 LRN (Rec: 07/11/20 12:32 LRN [id number]) Pelvic Floor Assessment Pelvic Clock Pelvic Clock 3-6 Tightness Pelvic Clock Other Pelvic Clock 3-6: Weakness and tightness of deep PF muscles. Prolapse Prolapse Comments Poor visualization due to small vaginal opening. No apparent prolapse. Contraction Ability Voluntary Relaxation Moderate Manual Muscle Testing Right 3 Manual Muscle Testing Anterior 1 Manual Muscle Testing Posterior 3 Muscle Endurance (Seconds) 3 Comments Pelvic Floor Comments MMT Left: Quick Flicks 0/5, Long holds, 3 secs. Quick Flicks: 10 on R side Muscle Endurance: 3 secs, weaker contraction on left. Deep PF: tight left side, weak left side. 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 PT-OP-K Range of Motion Start: 06/29/20 18:09 Freq: Status: Active Protocol: Document 07/04/20 12:46 LRN (Rec: 07/04/20 13:38 LRN [id number]) Hip Goniometric Range of Motion Hip Right Passive Hip ROM WFL No Testing Position Supine Straight Leg Raise 75 Abduction 32 Internal Rotation 20 External Rotation 70 Comments PSLR limited by hamstring tightness. Left Passive Testing Position Supine Straight Leg Raise 80 Abduction 39 Internal Rotation 25 External Rotation 75 Comments PSLR limited by medial/lateral knee pain PT-OP-M Strength Start: 06/29/20 18:09 Freq: Status: Active Protocol: Document 07/04/20 12:46 LRN (Rec: 07/04/20 13:38 LRN [id number]) Trunk Strength Trunk Manual Muscle Testing Core Stabilization Poor core stabilization with MMT of LE's. Hip Strength Hip Manual Muscle Testing Right Flexion (L2) 3 Fair Extension (S1) 3- Fair- Abduction 3 Fair Adduction 2 Poor External Rotation 3- Fair- Internal Rotation 3+ Fair+ Left Flexion (L2) 3+ Fair+ Extension (S1) 3+ Fair+ Abduction 3 Fair Adduction 2+ Poor+ External Rotation 3 Fair Internal Rotation 2+ Poor+ Comments Hip flex: pelvis rotates left (decreased R rot strength) PT-OP-Q Treatments Start: 06/29/20 18:09 Freq: Status: Active Protocol: Document 08/01/20 11:14 LRN (Rec: 08/01/20 12:22 LRN [id number]) Therapeutic Exercises Supine Exercises Fig 4 stretch Supine Exercise Name Fig 4 stretch Side bilateral Reps/Minutes 10' Comments Extra time to find max positioning of each hip and for relax after Hands/knees push Supine Exercise Name Hands/knees push Reps/Minutes 8' Comments Extra time for best positioning for back in a neutral Quick Flicks Supine Exercise Name Quick Flick with ball squeeze Reps/Minutes 2' Long Hold PF contraction Supine Exercise Name 6 Long Hold PF contraction f/ b 12 breathing rest Reps/Minutes 6' Comments Extra time for training for double time relaxation & PF isolation PF contraction Supine Exercise Name PF training in isolation of substitute muscles. Reps/Minutes 8' (Quick Flicks and Long Holds) Comments PF assessed with hand on perineum Sitting Exercises Side Sit Piriformis stretch Sitting Exercise Name Side Sit Piriformis stretch Side bilateral Reps/Minutes 5' Comments Extra time for training for max position stretch Therapeutic Activity Therapeutic Activity Sit <> Supine Name Sit <> Supine Reps/Minutes 5' Self-Care/Home Management Treatment Education Patient Education Home Exercise Program Activities Self-Care/Home Management Activities Issued & reviewed HEP: hands/ knees push, and Piriformis & Fig 4 stretch. PT-OP-T Assessment and Plan Start: 06/29/20 18:09 Freq: Status: Active Protocol: Document 08/01/20 11:14 LRN (Rec: 08/01/20 12:22 LRN [id number]) Physical Therapy Assessment Goals Four Impairment Decreased R LE and core strength Short Term Goal (STG) Pt will be independent in a HEP of hip and core stengthening exercises. STG Duration 08/24/20 (08/01/20: Progressing) Manager Of Case Management Goal (LTG) Pt will be able to stabilize her core during ex's of her LE 's. LTG Duration 10/02/20 Three Impairment Urinary incontinence (pt not able to make it to bathroom without leaking) Short Term Goal (STG) Pt will be able to perform a PF contraction in the absence of abdominal/gluteal muscles, and will be educated in urinary delay technique. STG Duration 07/28/20 (07/25/20: MET GOAL) Longterm Goal (LTG) With an urge to urinate, pt will be able to maintain urinary continence in the presence of a strong urge in order to make it to the bathroom without leaking. (07/25/20: Continent except for first thing in the morning). LTG Duration 10/02/20 Two Impairment Urinary leakage requiring use of depends daily Short Term Goal (STG) Improve PF strength with pt able to decrease use of depends pad. STG Duration 08/24/20 Longterm Goal (LTG) Pt will not have to use depends daily and will be able to decrease pad use to a mini pad daily. LTG Duration 10/02/20 One Impairment Lacks appropriate self care HEP. Short Term Goal (STG) Pt will be aware of the sensation of a proper PF contraction. STG Duration 07/28/20 (08/01/20: MET GOAL) Manager Of Case Management Goal (LTG) Pt will be independent in a self care HEP for PF strengthening. LTG Duration 10/02/20 (08/01/20: Progressed) Assessment Summary Assessment Pt was able to perform a PF contraction in isolation and was able to identify the contraction and relaxation phase. Posterior PF contraction is much stronger than anterior PF. Urinary incontinence due to progressive weakening of the R side of her body s/p stroke. She has tightness of hip ER'. Weakness probably persists with L deep PF and superficial PF muscles. Physical Therapy Plan Frequency and Duration Frequency of Treatment 1x/Week Plan of Care Start Date 07/04/20 Plan of Care End Date 10/02/20 Next Visit Focus/Plan Next Note Type Treatment Note Next Visit Plan Re-Review proper breathing with transfers and proper transfer sit<>sup; PF/core rotation/hip strengthening ( avoiding onset of LLE sciatica ), improve hip mobility, assess abdominal soft tissue ( bladder) mobility.
--- NOTE | 2020-08-08 12:16 | PT.OTN ---
Current Diagnoses Stiffness of unspecified hip, not elsewhere classified (08/08/20) Muscle weakness (generalized) (08/08/20) Other abnormalities of gait and mobility (08/08/20) Unspecified urinary incontinence (08/08/20) Urgency of urination (08/08/20) Physical Therapy Treatment Note PT-OP-A Visit Information Start: 06/29/20 18:09 Freq: Status: Active Protocol: Document 08/08/20 11:14 LRN (Rec: 08/08/20 12:15 LRN [id number]) Out-Patient Physical Therapy Visit Information Visit Information Visit Type Treatment Note Visit Start Time 11:14 Visit Stop Time 12:04 Total Visit Minutes 50 Visit Number 5 Precautions Precautions PMH per pt: L CVA - 2009, Diabetes II, neuropathy in juana feet, RA, Osteopenia, arthriscopic R knee surgery 2007, dizziness, controlled HBP, falls (almost fell last week while carrying groceries up stairs, last fall was 4 yrs ago when tripped on cat and fractured R shoulder). PT-OP-B Current Condition Start: 06/29/20 18:09 Freq: Status: Active Protocol: Document 07/04/20 12:46 LRN (Rec: 07/04/20 13:38 LRN [id number]) Current Condition History of Current Condition Onset Date 1 yr ago with worsening in the past 6 months Current Complaints Urinary incontinence at night and sometimes durig the day. History of Current Condition Urinary urgency and incontinence. Once recognizes she has to urinate she is not able to make it to the toilet to urinate. During the nighttime and sometimes during the day. Has been doing some exercises given by Dr. Kamara and it has helped. Prior Treatments and Tests Exercises given by Dr. Kamara. Future Testing and Treatments Planned None Developmental History Developmental History Has had 2 vaginal births with no complications. Had urinary leakage during second but not afterwards. Has had L CVA with R sided weakness (pt is R handed), but did not affect urinary continence. Treatment Goals Patient/Caregiver Goals Pt goal is to not have to use depends and be able to make it to bathroom without leaking, and to be able to return to an exercise gym routine at [employer]. Prior Functional Status Baseline Function- ADL's Independent Baseline Function- Mobility Independent Baseline Function- Gait Ambs with step to gait due to L CVA Baseline Function- Recreation/Hobbies Exercised at [employer] prior to pandemic. Baseline Function- Other No urinary leakage 1 yr ago. Was able to go to [place] to [place] (30 minutes) without leakage, but needed to use bathroom in [place]. Current Functional Impairments (Reported) Functional Limitations- ADL's Urinary leakage after travelling from [place] to [place] (30 minutes). Functional Limitations- Recreation/ Has not returned to [employer] for exercise. 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 PT-OP-C Subjective Start: 06/29/20 18:09 Freq: Status: Active Protocol: Document 08/08/20 11:14 LRN (Rec: 08/08/20 12:15 LRN [id number]) OP-PT Subjective Patient Comments Patient Comments Sciatic and LLE pain is gone. States she is using the delay technique to prevent leakage during the day and 1st in the morning. States she is able to make it to the bathroom first in the [facility]. PT-OP-I Pelvic Floor Start: 06/29/20 18:09 Freq: Status: Active Protocol: Document 08/08/20 11:14 LRN (Rec: 08/08/20 12:15 LRN [id number]) Pelvic Floor Assessment Urine Pads Used In 24 Hours 1 PT-OP-J Posture/Palpation/Skin Start: 06/29/20 18:09 Freq: Status: Active Protocol: Document 07/04/20 12:46 LRN (Rec: 07/04/20 13:38 LRN [id number]) Posture Evaluation Position Standing Head/C-Spine Posture Forward Head Pelvis Posture Anteriorly Tilted Weight Distribution Balanced Hip Posture (L) Externally Rotated,(R) Externally Rotated Ankle/Foot Posture (L) Forefoot Abducted,(R) Forefoot Abducted Comments Posture Comments Wide stance, 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 PT-OP-K Range of Motion Start: 06/29/20 18:09 Freq: Status: Active Protocol: Document 07/04/20 12:46 LRN (Rec: 07/04/20 13:38 LRN [id number]) Hip Goniometric Range of Motion Hip Right Passive Hip ROM WFL No Testing Position Supine Straight Leg Raise 75 Abduction 32 Internal Rotation 20 External Rotation 70 Comments PSLR limited by hamstring tightness. Left Passive Testing Position Supine Straight Leg Raise 80 Abduction 39 Internal Rotation 25 External Rotation 75 Comments PSLR limited by medial/lateral knee pain PT-OP-M Strength Start: 06/29/20 18:09 Freq: Status: Active Protocol: Document 07/04/20 12:46 LRN (Rec: 07/04/20 13:38 LRN [id number]) Trunk Strength Trunk Manual Muscle Testing Core Stabilization Poor core stabilization with MMT of LE's. Hip Strength Hip Manual Muscle Testing Right Flexion (L2) 3 Fair Extension (S1) 3- Fair- Abduction 3 Fair Adduction 2 Poor External Rotation 3- Fair- Internal Rotation 3+ Fair+ Left Flexion (L2) 3+ Fair+ Extension (S1) 3+ Fair+ Abduction 3 Fair Adduction 2+ Poor+ External Rotation 3 Fair Internal Rotation 2+ Poor+ Comments Hip flex: pelvis rotates left (decreased R rot strength) PT-OP-Q Treatments Start: 06/29/20 18:09 Freq: Status: Active Protocol: Document 08/08/20 11:14 LRN (Rec: 08/08/20 12:15 LRN [id number]) Therapeutic Exercises Supine Exercises LE roll in/out Supine Exercise Name LE Roll in/out training Long Hold PF contraction Supine Exercise Name 6 Long Hold PF contraction f/ b 12 breathing rest Reps/Minutes 6' Comments Extra time for training for double time relaxation & PF isolation PF contraction Supine Exercise Name PF training in isolation of substitute muscles. Reps/Minutes 2' Isolation of PF Deep Breathing Supine Exercise Name Deep Breathing Sitting Exercises Pirformis stretch Sitting Exercise Name Piriformis stretch juana with focus on L Side left Reps/Minutes 4' Comments Extra time for pt to show her stretch in standing. Self-Care/Home Management Treatment Education Patient Education Home Exercise Program Other Education Discussed at length with pt of her urinary leakage awareness and discussed method to determine leakage with double layer of underwear. Activities Self-Care/Home Management Activities Issued & reviewed HEP of LE roll in/out ex. PT-OP-T Assessment and Plan Start: 06/29/20 18:09 Freq: Status: Active Protocol: Document 08/08/20 11:14 LRN (Rec: 08/08/20 12:15 LRN [id number]) Physical Therapy Assessment Goals Four Impairment Decreased R LE and core strength Short Term Goal (STG) Pt will be independent in a HEP of hip and core stengthening exercises. STG Duration 08/24/20 (08/01/20: Progressing) Long-Term Goal (LTG) Pt will be able to stabilize her core during ex's of her LE 's. LTG Duration 10/02/20 Three Impairment Urinary incontinence (pt not able to make it to bathroom without leaking) Short Term Goal (STG) Pt will be able to perform a PF contraction in the absence of abdominal/gluteal muscles, and will be educated in urinary delay technique. STG Duration 07/28/20 (07/25/20: MET GOAL) [employer] Goal (LTG) With an urge to urinate, pt will be able to maintain urinary continence in the presence of a strong urge in order to make it to the bathroom without leaking. (07/25/20: Continent except for first thing in the morning). (08/08/20: Pt reported 80% continence with strong urge). LTG Duration 10/02/20 (08/08/20: Improved 80%) Two Impairment Urinary leakage requiring use of depends daily Short Term Goal (STG) Improve PF strength with pt able to decrease use of depends pad. (08/08/20: Changing 1x/day) STG Duration 08/24/20 Long-Term Goal (LTG) Pt will not have to use depends daily and will be able to decrease pad use to a mini pad daily. LTG Duration 10/02/20 One Impairment Lacks appropriate self care HEP. Short Term Goal (STG) Pt will be aware of the sensation of a proper PF contraction. STG Duration 07/28/20 (08/01/20: MET GOAL) [employer] Goal (LTG) Pt will be independent in a self care HEP for PF strengthening. LTG Duration 10/02/20 (08/08/20: Progressed) Progress Towards Goals Progress Comments Progressed HEP. Delay technique has helped with pt urinary incontinence 80%. Assessment Summary Assessment L hip Piriformis is much tighter than R. Pt required training for proper breathing with transfers. Pt needed much cuing to do LE roll in/ out correctly, and was not able to do with PF contractions due to confusion; therefore will hold adding PF contractions until next visit . Tried hands/knees push for core strengthening in sitting, but pt not able to perform correctly. Physical Therapy Plan Frequency and Duration Frequency of Treatment 1x/Week Plan of Care Start Date 07/04/20 Plan of Care End Date 10/02/20 Next Visit Focus/Plan Next Note Type Treatment Note Next Visit Plan Assess abdominal soft tissue ( bladder) mobility. Further practice/training of proper breathing with transfers and body mechanics (sit<>sup); Review L Piriformis stretch in sitting. PF/core rotation/ hip strengthening (avoiding onset of LLE sciatica), improve hip mobility.
--- NOTE | 2020-08-17 16:55 | PT.OTN ---
Current Diagnoses Stiffness of unspecified hip, not elsewhere classified (08/17/20) Muscle weakness (generalized) (08/17/20) Other abnormalities of gait and mobility (08/17/20) Unspecified urinary incontinence (08/17/20) Urgency of urination (08/17/20) Physical Therapy Treatment Note PT-OP-A Visit Information Start: 06/29/20 18:09 Freq: Status: Active Protocol: Document 08/17/20 12:50 LRN (Rec: 08/17/20 13:31 LRN [id number]) Out-Patient Physical Therapy Visit Information Visit Information Visit Type Treatment Note Visit Start Time 12:50 Visit Stop Time 13:30 Total Visit Minutes 40 Visit Number 6 Evaluation Information Evaluation Date 07/04/20 Precautions Precautions PMH per pt: L CVA - 2009, Diabetes II, neuropathy in juana feet, RA, Osteopenia, arthriscopic R knee surgery 2007, dizziness, controlled HBP, falls (almost fell last week while carrying groceries up stairs, last fall was 4 yrs ago when tripped on cat and fractured R shoulder). PT-OP-B Current Condition Start: 06/29/20 18:09 Freq: Status: Active Protocol: Document 07/04/20 12:46 LRN (Rec: 07/04/20 13:38 LRN [id number]) Current Condition History of Current Condition Onset Date 1 yr ago with worsening in the past 6 months Current Complaints Urinary incontinence at night and sometimes durig the day. History of Current Condition Urinary urgency and incontinence. Once recognizes she has to urinate she is not able to make it to the toilet to urinate. During the nighttime and sometimes during the day. Has been doing some exercises given by Dr. Kamara and it has helped. Prior Treatments and Tests Exercises given by Dr. Kamara. Future Testing and Treatments Planned None Developmental History Developmental History Has had 2 vaginal births with no complications. Had urinary leakage during second but not afterwards. Has had L CVA with R sided weakness (pt is R handed), but did not affect urinary continence. Treatment Goals Patient/Caregiver Goals Pt goal is to not have to use depends and be able to make it to bathroom without leaking, and to be able to return to an exercise gym routine at [employer]. Prior Functional Status Baseline Function- ADL's Independent Baseline Function- Mobility Independent Baseline Function- Gait Ambs with step to gait due to L CVA Baseline Function- Recreation/Hobbies Exercised at [employer] prior to pandemic. Baseline Function- Other No urinary leakage 1 yr ago. Was able to go to [place] to [place] (30 minutes) without leakage, but needed to use bathroom in [place]. Current Functional Impairments (Reported) Functional Limitations- ADL's Urinary leakage after travelling from [place] to [place] (30 minutes). Functional Limitations- Recreation/ Has not returned to [email or web address] for exercise. 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 PT-OP-C Subjective Start: 06/29/20 18:09 Freq: Status: Active Protocol: Document 08/17/20 12:50 LRN (Rec: 08/17/20 13:31 LRN [id number]) OP-PT Subjective Patient Comments Patient Comments Leaked x 1, medium leakage with strong urge. PT-OP-I Pelvic Floor Start: 06/29/20 18:09 Freq: Status: Active Protocol: Document 08/08/20 11:14 LRN (Rec: 08/08/20 12:15 LRN [id number]) Pelvic Floor Assessment Urine Pads Used In 24 Hours 1 PT-OP-J Posture/Palpation/Skin Start: 06/29/20 18:09 Freq: Status: Active Protocol: Document 07/04/20 12:46 LRN (Rec: 07/04/20 13:38 LRN [id number]) Posture Evaluation Position Standing Head/C-Spine Posture Forward Head Pelvis Posture Anteriorly Tilted Weight Distribution Balanced Hip Posture (L) Externally Rotated,(R) Externally Rotated Ankle/Foot Posture (L) Forefoot Abducted,(R) Forefoot Abducted Comments Posture Comments Wide stance, 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 PT-OP-K Range of Motion Start: 06/29/20 18:09 Freq: Status: Active Protocol: Document 07/04/20 12:46 LRN (Rec: 07/04/20 13:38 LRN [id number]) Hip Goniometric Range of Motion Hip Right Passive Hip ROM WFL No Testing Position Supine Straight Leg Raise 75 Abduction 32 Internal Rotation 20 External Rotation 70 Comments PSLR limited by hamstring tightness. Left Passive Testing Position Supine Straight Leg Raise 80 Abduction 39 Internal Rotation 25 External Rotation 75 Comments PSLR limited by medial/lateral knee pain PT-OP-M Strength Start: 06/29/20 18:09 Freq: Status: Active Protocol: Document 07/04/20 12:46 LRN (Rec: 07/04/20 13:38 LRN [id number]) Trunk Strength Trunk Manual Muscle Testing Core Stabilization Poor core stabilization with MMT of LE's. Hip Strength Hip Manual Muscle Testing Right Flexion (L2) 3 Fair Extension (S1) 3- Fair- Abduction 3 Fair Adduction 2 Poor External Rotation 3- Fair- Internal Rotation 3+ Fair+ Left Flexion (L2) 3+ Fair+ Extension (S1) 3+ Fair+ Abduction 3 Fair Adduction 2+ Poor+ External Rotation 3 Fair Internal Rotation 2+ Poor+ Comments Hip flex: pelvis rotates left (decreased R rot strength) PT-OP-Q Treatments Start: 06/29/20 18:09 Freq: Status: Active Protocol: Document 08/17/20 12:50 LRN (Rec: 08/17/20 13:31 LRN [id number]) Therapeutic Exercises Supine Exercises LTR stretch Supine Exercise Name LTR stretch Side right Reps/Minutes 4' Comments R Knee rolls restricted vs L. Sitting Exercises Pirformis stretch Sitting Exercise Name Piriformis stretch juana with focus on L Side left Reps/Minutes 4' Comments Extra time for pt to show her stretch in standing. Side Sit Piriformis stretch Sitting Exercise Name Side sit Piriformis stretch review Side left Reps/Minutes 1' Therapeutic Activity Therapeutic Activity Sit <> Supine Name Sit <> Supine w/proper breathing Reps/Minutes 3' Comments Pt light headed on initial sitting from supine. Manual Therapy Treatment Soft Tissue Mobilization Lower abdomen Body Location Lower abdomen, bladder, and small intestine fascial restrictions Mobilization Type Sustained Pressure Intensity/Depth Moderate Body Position Supine Comments Restricted fascial mobility for L SB, L rot, ext. Active movement of LE roll in/ out with small intestine fascial mob. Self-Care/Home Management Treatment Education Other Education Educated pt in foods/beverages bladder irritants with handout issued. PT-OP-T Assessment and Plan Start: 06/29/20 18:09 Freq: Status: Active Protocol: Document 08/17/20 12:50 LRN (Rec: 08/17/20 13:31 LRN [id number]) Physical Therapy Assessment Goals Four Impairment Decreased R LE and core strength Short Term Goal (STG) Pt will be independent in a HEP of hip and core stengthening exercises. STG Duration 08/24/20 (08/01/20: Progressing) [employer] Goal (LTG) Pt will be able to stabilize her core during ex's of her LE 's. LTG Duration 10/02/20 Three Impairment Urinary incontinence (pt not able to make it to bathroom without leaking) Short Term Goal (STG) Pt will be able to perform a PF contraction in the absence of abdominal/gluteal muscles, and will be educated in urinary delay technique. STG Duration 07/28/20 (07/25/20: MET GOAL) Senior Living Goal (LTG) With an urge to urinate, pt will be able to maintain urinary continence in the presence of a strong urge in order to make it to the bathroom without leaking. (07/25/20: Continent except for first thing in the morning). (08/08/20: Pt reported 80% continence with strong urge). LTG Duration 10/02/20 (08/08/20: Improved 80%) Two Impairment Urinary leakage requiring use of depends daily Short Term Goal (STG) Improve PF strength with pt able to decrease use of depends pad. (08/08/20: Changing 1x/day) STG Duration 08/24/20 Senior Living Goal (LTG) Pt will not have to use depends daily and will be able to decrease pad use to a mini pad daily. LTG Duration 10/02/20 One Impairment Lacks appropriate self care HEP. Short Term Goal (STG) Pt will be aware of the sensation of a proper PF contraction. STG Duration 07/28/20 (08/01/20: MET GOAL) Senior Living Goal (LTG) Pt will be independent in a self care HEP for PF strengthening. LTG Duration 10/02/20 (08/17/20: Progressed with education) Assessment Summary Assessment Bladder fascial restriction for L rot/SB & ext. Pt has good understanding of foods to avoid and her L hip ER stretch. Urinary leakage with urgency improving. Physical Therapy Plan Frequency and Duration Frequency of Treatment 1x/Week Plan of Care Start Date 07/04/20 Plan of Care End Date 10/02/20 Next Visit Focus/Plan Next Note Type Treatment Note Next Visit Plan Assess progress towards goals & response to abdominal soft tissue (bladder) mobility. Assess proper breathing with transfers and body mechanics ( sit<>sup); Recheck PF strength /endurance and pt's ability to relax PF. PF/core rotation/ hip strengthening (avoiding onset of LLE sciatica), improve hip mobility. PF strengthening of L lateral wall for quick flicks and long holds of 10 secs.
--- NOTE | 2020-08-24 16:31 | PT.OTN ---
Current Diagnoses Stiffness of unspecified hip, not elsewhere classified (08/24/20) Muscle weakness (generalized) (08/24/20) Other abnormalities of gait and mobility (08/24/20) Unspecified urinary incontinence (08/24/20) Urgency of urination (08/24/20) Physical Therapy Treatment Note PT-OP-A Visit Information Start: 06/29/20 18:09 Freq: Status: Active Protocol: Document 08/24/20 15:05 LRN (Rec: 08/24/20 16:27 LRN [id number]) Out-Patient Physical Therapy Visit Information Visit Information Visit Type Treatment Note Visit Start Time 15:05 Visit Stop Time 15:50 Total Visit Minutes 45 Visit Number 7 Evaluation Information Evaluation Date 07/04/20 Precautions Precautions PMH per pt: L CVA - 2009, Diabetes II, neuropathy in juana feet, RA, Osteopenia, arthriscopic R knee surgery 2007, dizziness, controlled HBP, falls (almost fell last week while carrying groceries up stairs, last fall was 4 yrs ago when tripped on cat and fractured R shoulder). PT-OP-B Current Condition Start: 06/29/20 18:09 Freq: Status: Active Protocol: Document 07/04/20 12:46 LRN (Rec: 07/04/20 13:38 LRN [id number]) Current Condition History of Current Condition Onset Date 1 yr ago with worsening in the past 6 months Current Complaints Urinary incontinence at night and sometimes durig the day. History of Current Condition Urinary urgency and incontinence. Once recognizes she has to urinate she is not able to make it to the toilet to urinate. During the nighttime and sometimes during the day. Has been doing some exercises given by Dr. Kamara and it has helped. Prior Treatments and Tests Exercises given by Dr. Kamara. Future Testing and Treatments Planned None Developmental History Developmental History Has had 2 vaginal births with no complications. Had urinary leakage during second but not afterwards. Has had L CVA with R sided weakness (pt is R handed), but did not affect urinary continence. Treatment Goals Patient/Caregiver Goals Pt goal is to not have to use depends and be able to make it to bathroom without leaking, and to be able to return to an exercise gym routine at [employer]. Prior Functional Status Baseline Function- ADL's Independent Baseline Function- Mobility Independent Baseline Function- Gait Ambs with step to gait due to L CVA Baseline Function- Recreation/Hobbies Exercised at [employer] prior to pandemic. Baseline Function- Other No urinary leakage 1 yr ago. Was able to go to [place] to [place] (30 minutes) without leakage, but needed to use bathroom in [place]. Current Functional Impairments (Reported) Functional Limitations- ADL's Urinary leakage after travelling from [place] to [place] (30 minutes). Functional Limitations- Recreation/ Has not returned to [employer] for exercise. 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 PT-OP-C Subjective Start: 06/29/20 18:09 Freq: Status: Active Protocol: Document 08/24/20 15:05 LRN (Rec: 08/24/20 16:27 LRN [id number]) OP-PT Subjective Patient Comments Patient Comments Set back. Started 08/19/20, lost the urge to go and looses urine in a fluid. PT-OP-I Pelvic Floor Start: 06/29/20 18:09 Freq: Status: Active Protocol: Document 08/24/20 15:05 LRN (Rec: 08/24/20 16:27 LRN [id number]) Pelvic Floor Assessment Prolapse Uterine Prolapse Grade 1 Cystocele Grade 1 Contraction Ability Voluntary Contraction Weak Voluntary Relaxation Weak Manual Muscle Testing Left 2 Manual Muscle Testing Right 0 Manual Muscle Testing Anterior 0 Manual Muscle Testing Posterior 3 Muscle Endurance (Seconds) 4 Comments Pelvic Floor Comments Quick is 6x from posterior PF lift only. Muscle Endurance: 3-4 secs at posterior PF. 0/5 on left or right lateral ceballos. No tenderness of PF or tightness. 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 PT-OP-K Range of Motion Start: 06/29/20 18:09 Freq: Status: Active Protocol: Document 07/04/20 12:46 LRN (Rec: 07/04/20 13:38 LRN [id number]) Hip Goniometric Range of Motion Hip Right Passive Hip ROM WFL No Testing Position Supine Straight Leg Raise 75 Abduction 32 Internal Rotation 20 External Rotation 70 Comments PSLR limited by hamstring tightness. Left Passive Testing Position Supine Straight Leg Raise 80 Abduction 39 Internal Rotation 25 External Rotation 75 Comments PSLR limited by medial/lateral knee pain PT-OP-M Strength Start: 06/29/20 18:09 Freq: Status: Active Protocol: Document 07/04/20 12:46 LRN (Rec: 07/04/20 13:38 LRN [id number]) Trunk Strength Trunk Manual Muscle Testing Core Stabilization Poor core stabilization with MMT of LE's. Hip Strength Hip Manual Muscle Testing Right Flexion (L2) 3 Fair Extension (S1) 3- Fair- Abduction 3 Fair Adduction 2 Poor External Rotation 3- Fair- Internal Rotation 3+ Fair+ Left Flexion (L2) 3+ Fair+ Extension (S1) 3+ Fair+ Abduction 3 Fair Adduction 2+ Poor+ External Rotation 3 Fair Internal Rotation 2+ Poor+ Comments Hip flex: pelvis rotates left (decreased R rot strength) PT-OP-Q Treatments Start: 06/29/20 18:09 Freq: Status: Active Protocol: Document 08/24/20 15:05 LRN (Rec: 08/24/20 16:27 LRN [id number]) Therapeutic Exercises Supine Exercises TA tightening Supine Exercise Name TA tightening Reps/Minutes 2' Pelvic Floor Clock Supine Exercise Name PF Clock (12-6, 1-7, 11-5) Reps/Minutes 15' Comments Much training needed for pt to identify anterior vs posterior PF contractio Quick Flicks Supine Exercise Name Quick Flick Reps/Minutes 2' Long Hold PF contraction Supine Exercise Name 4-5 Long Hold PF contraction f/b 10 BKFO's Reps/Minutes 6' Comments Extra time for training for double time relaxation & PF isolation PF contraction Supine Exercise Name PF contractions in isolation of substitute muscles. Reps/Minutes 2' Isolation of PF Standing Exercises Quick Flicks Standing Exercise Name PF Quick Flicks with knee squeezes Equipment Used with & w/o pillow Reps/Minutes 5' Therapeutic Activity Therapeutic Activity Sit<>Stand Name Sit to Stand with proper breathing, PF contraction, TA tight Reps/Minutes 6' Self-Care/Home Management Treatment Education Other Education Discussed at length pt's food/ fluid intake over holiday and recommended pt resume her bladder diary to monitor more closely her voiding habits to determine if she is needs to be more consistent with voiding at proper times or if her urinary leakage in the past 4 days is more due to weakness or poor transfer habits (holding breath and ignoring urges). PT-OP-T Assessment and Plan Start: 06/29/20 18:09 Freq: Status: Active Protocol: Document 08/24/20 15:05 LRN (Rec: 08/24/20 16:27 LRN [id number]) Physical Therapy Assessment Goals Four Impairment Decreased R LE and core strength Short Term Goal (STG) Pt will be independent in a HEP of hip and core stengthening exercises. STG Duration 08/24/20 (08/01/20: Progressing) Skilled Nursing Goal (LTG) Pt will be able to stabilize her core during ex's of her LE 's. LTG Duration 10/02/20 Three Impairment Urinary incontinence (pt not able to make it to bathroom without leaking) Short Term Goal (STG) Pt will be able to perform a PF contraction in the absence of abdominal/gluteal muscles, and will be educated in urinary delay technique. STG Duration 07/28/20 (07/25/20: MET GOAL) Exhibit Cleaner Goal (LTG) With an urge to urinate, pt will be able to maintain urinary continence in the presence of a strong urge in order to make it to the bathroom without leaking. (07/25/20: Continent except for first thing in the morning). (08/08/20: Pt reported 80% continence with strong urge). LTG Duration 10/02/20 (08/08/20: Improved 80%) Two Impairment Urinary leakage requiring use of depends daily Short Term Goal (STG) Improve PF strength with pt able to decrease use of depends pad. (08/08/20: Changing 1x/day) STG Duration 08/24/20 Exhibit Cleaner Goal (LTG) Pt will not have to use depends daily and will be able to decrease pad use to a mini pad daily. LTG Duration 10/02/20 One Impairment Lacks appropriate self care HEP. Short Term Goal (STG) Pt will be aware of the sensation of a proper PF contraction. STG Duration 07/28/20 (08/01/20: MET GOAL) Skilled Nursing Goal (LTG) Pt will be independent in a self care HEP for PF strengthening. LTG Duration 10/02/20 (08/17/20: Progressed with education) Progress Towards Goals Progress Towards Goals Slow Progress - Other Progress Comments Pt had set back over the holiday weekend, with the pt noting that her diet included a lot of the bladder irritants on her Pt also started drinking water with lemon slices that may be irritating her bladder. Assessment Summary Assessment Pt felt less heaviness in her PF region after last session that lasted a day. Today, on PF palpation pt appears to have a drop of her Uterus that may be further pushing down on her bladder, with cytocele grade1 present. She had no PF soft tissue discomfort. PF assessment shows decreased strength of PF in R>L lateral wall, L>R anterior PF. She has poor quick PF contractions strength. Poor habits of proper breathing and PF contractions with transfers. Pt needs further training of proper transfer using breath, PF & TA contractions. Pt has fair awareness of PF contractions (anterior vs posterior) while doing partial PF clock contractions. Physical Therapy Plan Frequency and Duration Frequency of Treatment 1x/Week Plan of Care Start Date 07/04/20 Plan of Care End Date 10/02/20 Next Visit Focus/Plan Next Note Type Treatment Note Next Visit Plan Assess progress towards goals. Assess proper breathing with transfers and body mechanics (stand<>sit<>sup); PF/core rotation/hip strengthening ( avoiding onset of LLE sciatica ), improve hip mobility. Focus on PF strengthening of bilateral lateral ceballos for quick flicks and long holds of 10 secs.
--- NOTE | 2020-09-07 15:40 | PT.OTN ---
Current Diagnoses Stiffness of unspecified hip, not elsewhere classified (09/07/20) Muscle weakness (generalized) (09/07/20) Other abnormalities of gait and mobility (09/07/20) Unspecified urinary incontinence (09/07/20) Urgency of urination (09/07/20) Physical Therapy Treatment Note PT-OP-A Visit Information Start: 06/29/20 18:09 Freq: Status: Active Protocol: Document 09/07/20 14:40 LRN (Rec: 09/07/20 15:39 LRN [id number]) Out-Patient Physical Therapy Visit Information Visit Information Visit Type Treatment Note Visit Start Time 14:40 Visit Stop Time 15:26 Total Visit Minutes 46 Visit Number 8 Evaluation Information Evaluation Date 07/04/20 Precautions Precautions PMH per pt: L CVA - 2009, Diabetes II, neuropathy in juana feet, RA, Osteopenia, arthriscopic R knee surgery 2007, dizziness, controlled HBP, falls (almost fell last week while carrying groceries up stairs, last fall was 4 yrs ago when tripped on cat and fractured R shoulder). PT-OP-B Current Condition Start: 06/29/20 18:09 Freq: Status: Active Protocol: Document 07/04/20 12:46 LRN (Rec: 07/04/20 13:38 LRN [id number]) Current Condition History of Current Condition Onset Date 1 yr ago with worsening in the past 6 months Current Complaints Urinary incontinence at night and sometimes durig the day. History of Current Condition Urinary urgency and incontinence. Once recognizes she has to urinate she is not able to make it to the toilet to urinate. During the nighttime and sometimes during the day. Has been doing some exercises given by Dr. Kamara and it has helped. Prior Treatments and Tests Exercises given by Dr. Kamara. Future Testing and Treatments Planned None Developmental History Developmental History Has had 2 vaginal births with no complications. Had urinary leakage during second but not afterwards. Has had L CVA with R sided weakness (pt is R handed), but did not affect urinary continence. Treatment Goals Patient/Caregiver Goals Pt goal is to not have to use depends and be able to make it to bathroom without leaking, and to be able to return to an exercise gym routine at [employer]. Prior Functional Status Baseline Function- ADL's Independent Baseline Function- Mobility Independent Baseline Function- Gait Ambs with step to gait due to L CVA Baseline Function- Recreation/Hobbies Exercised at [employer] prior to pandemic. Baseline Function- Other No urinary leakage 1 yr ago. Was able to go to [place] to [place] (30 minutes) without leakage, but needed to use bathroom in [place]. Current Functional Impairments (Reported) Functional Limitations- ADL's Urinary leakage after travelling from [place] to [place] (30 minutes). Functional Limitations- Recreation/ Has not returned to [place] for exercise. 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 PT-OP-C Subjective Start: 06/29/20 18:09 Freq: Status: Active Protocol: Document 09/07/20 14:40 LRN (Rec: 09/07/20 15:39 LRN [id number]) OP-PT Subjective Patient Comments Patient Comments Improving. 3 day stretch without leaking and one day flood while standing in front of the sink (running of water) . Having occasioinal leakage. PT-OP-I Pelvic Floor Start: 06/29/20 18:09 Freq: Status: Active Protocol: Document 08/24/20 15:05 LRN (Rec: 08/24/20 16:27 LRN [id number]) Pelvic Floor Assessment Prolapse Uterine Prolapse Grade 1 Cystocele Grade 1 Contraction Ability Voluntary Contraction Weak Voluntary Relaxation Weak Manual Muscle Testing Left 2 Manual Muscle Testing Right 0 Manual Muscle Testing Anterior 0 Manual Muscle Testing Posterior 3 Muscle Endurance (Seconds) 4 Comments Pelvic Floor Comments Quick is 6x from posterior PF lift only. Muscle Endurance: 3-4 secs at posterior PF. 0/5 on left or right lateral ceballos. No tenderness of PF or tightness. 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 PT-OP-K Range of Motion Start: 06/29/20 18:09 Freq: Status: Active Protocol: Document 07/04/20 12:46 LRN (Rec: 07/04/20 13:38 LRN [id number]) Hip Goniometric Range of Motion Hip Right Passive Hip ROM WFL No Testing Position Supine Straight Leg Raise 75 Abduction 32 Internal Rotation 20 External Rotation 70 Comments PSLR limited by hamstring tightness. Left Passive Testing Position Supine Straight Leg Raise 80 Abduction 39 Internal Rotation 25 External Rotation 75 Comments PSLR limited by medial/lateral knee pain PT-OP-M Strength Start: 06/29/20 18:09 Freq: Status: Active Protocol: Document 07/04/20 12:46 LRN (Rec: 07/04/20 13:38 LRN [id number]) Trunk Strength Trunk Manual Muscle Testing Core Stabilization Poor core stabilization with MMT of LE's. Hip Strength Hip Manual Muscle Testing Right Flexion (L2) 3 Fair Extension (S1) 3- Fair- Abduction 3 Fair Adduction 2 Poor External Rotation 3- Fair- Internal Rotation 3+ Fair+ Left Flexion (L2) 3+ Fair+ Extension (S1) 3+ Fair+ Abduction 3 Fair Adduction 2+ Poor+ External Rotation 3 Fair Internal Rotation 2+ Poor+ Comments Hip flex: pelvis rotates left (decreased R rot strength) PT-OP-Q Treatments Start: 06/29/20 18:09 Freq: Status: Active Protocol: Document 09/07/20 14:40 LRN (Rec: 09/07/20 15:39 LRN [id number]) Therapeutic Exercises Supine Exercises TA tightening Supine Exercise Name TA tightening Reps/Minutes 2' Pelvic Floor Clock Supine Exercise Name PF Clock (12-6, 1-7, 11-5) Reps/Minutes 2' Comments Reviewed Quick Flicks Supine Exercise Name Hip AB w/PF contraction for Quick Flicks Side bilateral Reps/Minutes 4' Long Hold PF contraction Supine Exercise Name PF w/2x hip AB alternating legs for opposite side relaxation phase Side bilateral Reps/Minutes 6' Comments Much cuing and I/S needed to perform ex Sidelying Exercises PF w/Hip AD Sidelying Exercise Name PF w/Hip AD/Exhale Side bilateral Reps/Minutes 6' Comments Pt needed much cuing for coordination of breathing & PF contraction. Standing Exercises PF contraction w/shallow squats Standing Exercise Name PF contraction w/shallow squat at sink Reps/Minutes 11' Comments Rest phase doing 2 deep breaths and active ankle ex. Quick Flicks Standing Exercise Name PF Quick Flicks with knee squeezesl Equipment Used Pillow & TBal Reps/Minutes 8' Comments V. cuing needed for coordination breathing with contraction & squeeze Therapeutic Activity Therapeutic Activity Sit<>Stand Name Sit to Stand with proper breathing, PF contraction, TA tight Reps/Minutes 2' Sit <> Supine Name Sit <> Supine w/proper breathing Reps/Minutes 3' Comments Pt light headed on initial sitting from supine. Self-Care/Home Management Treatment Activities Self-Care/Home Management Activities I/S pt to practice aggrevator of standing at the kitchen sink for PF strengthening while doing shallow squats (at rest do 2 deep breathing and other active ex of 10 reps). PT-OP-T Assessment and Plan Start: 06/29/20 18:09 Freq: Status: Active Protocol: Document 09/07/20 14:40 LRN (Rec: 09/07/20 15:39 LRN [id number]) Physical Therapy Assessment Goals Four Impairment Decreased R LE and core strength Short Term Goal (STG) Pt will be independent in a HEP of hip and core stengthening exercises. STG Duration 08/24/20 (08/01/20: Progressing) Bowling Ball Grader And Marker Goal (LTG) Pt will be able to stabilize her core during ex's of her LE 's. LTG Duration 10/02/20 Three Impairment Urinary incontinence (pt not able to make it to bathroom without leaking) Short Term Goal (STG) Pt will be able to perform a PF contraction in the absence of abdominal/gluteal muscles, and will be educated in urinary delay technique. STG Duration 07/28/20 (07/25/20: MET GOAL) Fdc Goal (LTG) With an urge to urinate, pt will be able to maintain urinary continence in the presence of a strong urge in order to make it to the bathroom without leaking. (07/25/20: Continent except for first thing in the morning). (08/08/20: Pt reported 80% continence with strong urge). LTG Duration 10/02/20 (08/08/20: Improved 80%) Two Impairment Urinary leakage requiring use of depends daily Short Term Goal (STG) Improve PF strength with pt able to decrease use of depends pad. (08/08/20: Changing 1x/day) STG Duration 08/24/20 Bowling Ball Grader And Marker Goal (LTG) Pt will not have to use depends daily and will be able to decrease pad use to a mini pad daily. LTG Duration 10/02/20 One Impairment Lacks appropriate self care HEP. Short Term Goal (STG) Pt will be aware of the sensation of a proper PF contraction. STG Duration 07/28/20 (08/01/20: MET GOAL) Fdc Goal (LTG) Pt will be independent in a self care HEP for PF strengthening. LTG Duration 10/02/20 (08/17/20: Progressed with education) Assessment Summary Assessment Slow progress towards goals although pt noting variable improvement in level of continence. She appears to perform proper breathing with transfers and body mechanics when verbally cued, but otherwise tends to forget and holds breath. Pt has poor awareness of TA tightening and is not able to palpate in supine, only sidelie. She became lightheaded on supine to sit and needed extra time with SBA for dizziness to subside before exiting treatment room. Pt had less tolerance to PF strengthening while facilitating with standing hip AD due to bilateral knee pain. Physical Therapy Plan Frequency and Duration Frequency of Treatment 1x/Week Plan of Care Start Date 07/04/20 Plan of Care End Date 10/02/20 Next Visit Focus/Plan Next Note Type Treatment Note Next Visit Plan Issue handouts for HEP for improved compliance with home ex's. Monitor proper breathing with transfers and body mechanics (stand<>sit<> sup); PF/core rotation/hip strengthening (avoiding onset of LLE sciatica), improve hip mobility. Focus on PF strengthening of bilateral lateral ceballos for quick flicks and long holds of 10 secs.
--- NOTE | 2020-10-09 12:43 | PT.OTN ---
Current Diagnoses Stiffness of unspecified hip, not elsewhere classified (10/09/20) Muscle weakness (generalized) (10/09/20) Other abnormalities of gait and mobility (10/09/20) Unspecified urinary incontinence (10/09/20) Urgency of urination (10/09/20) Physical Therapy Treatment Note PT-OP-A Visit Information Start: 06/29/20 18:09 Freq: Status: Active Protocol: Document 10/09/20 11:22 LRN (Rec: 10/09/20 12:42 LRN [id number]) Out-Patient Physical Therapy Visit Information Visit Information Visit Type Progress Note Visit Start Time 11:22 Visit Stop Time 12:12 Total Visit Minutes 50 Visit Number 9 Evaluation Information Evaluation Date 07/04/20 Precautions Precautions PMH per pt: L CVA - 2009, Diabetes II, neuropathy in kyle feet, RA, Osteopenia, arthriscopic R knee surgery 2007, dizziness, controlled HBP, falls (almost fell last week while carrying groceries up stairs, last fall was 4 yrs ago when tripped on cat and fractured R shoulder). PT-OP-B Current Condition Start: 06/29/20 18:09 Freq: Status: Active Protocol: Document 07/04/20 12:46 LRN (Rec: 07/04/20 13:38 LRN [id number]) Current Condition History of Current Condition Onset Date 1 yr ago with worsening in the past 6 months Current Complaints Urinary incontinence at night and sometimes durig the day. History of Current Condition Urinary urgency and incontinence. Once recognizes she has to urinate she is not able to make it to the toilet to urinate. During the nighttime and sometimes during the day. Has been doing some exercises given by Dr. Kamara and it has helped. Prior Treatments and Tests Exercises given by Dr. Kamara. Future Testing and Treatments Planned None Developmental History Developmental History Has had 2 vaginal births with no complications. Had urinary leakage during second but not afterwards. Has had L CVA with R sided weakness (pt is R handed), but did not affect urinary continence. Treatment Goals Patient/Caregiver Goals Pt goal is to not have to use depends and be able to make it to bathroom without leaking, and to be able to return to an exercise gym routine at [employer]. Prior Functional Status Baseline Function- ADL's Independent Baseline Function- Mobility Independent Baseline Function- Gait Ambs with step to gait due to L CVA Baseline Function- Recreation/Hobbies Exercised at [employer] prior to pandemic. Baseline Function- Other No urinary leakage 1 yr ago. Was able to go to [place] to [place] (30 minutes) without leakage, but needed to use bathroom in [place]. Current Functional Impairments (Reported) Functional Limitations- ADL's Urinary leakage after travelling from [place] to [place] (30 minutes). Functional Limitations- Recreation/ Has not returned to [employer] for exercise. 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 PT-OP-C Subjective Start: 06/29/20 18:09 Freq: Status: Active Protocol: Document 10/09/20 11:22 LRN (Rec: 10/09/20 12:42 LRN [id number]) OP-PT Subjective Patient Comments Patient Comments Doing better, Doesn't feel like the bladder controls her life anymore. Was comfortable when having to go to Dr cortez in . Realizes she doesn't recognize her urges. Used to use 2-3 depends pad per day and now only uses one. Pt states she would like to continue therapy and will consider more therapy after next visit. PT-OP-I Pelvic Floor Start: 06/29/20 18:09 Freq: Status: Active Protocol: Document 08/24/20 15:05 LRN (Rec: 08/24/20 16:27 LRN [id number]) Pelvic Floor Assessment Prolapse Uterine Prolapse Grade 1 Cystocele Grade 1 Contraction Ability Voluntary Contraction Weak Voluntary Relaxation Weak Manual Muscle Testing Left 2 Manual Muscle Testing Right 0 Manual Muscle Testing Anterior 0 Manual Muscle Testing Posterior 3 Muscle Endurance (Seconds) 4 Comments Pelvic Floor Comments Quick is 6x from posterior PF lift only. Muscle Endurance: 3-4 secs at posterior PF. 0/5 on left or right lateral ceballos. No tenderness of PF or tightness. 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 PT-OP-K Range of Motion Start: 06/29/20 18:09 Freq: Status: Active Protocol: Document 07/04/20 12:46 LRN (Rec: 07/04/20 13:38 LRN [id number]) Hip Goniometric Range of Motion Hip Right Passive Hip ROM WFL No Testing Position Supine Straight Leg Raise 75 Abduction 32 Internal Rotation 20 External Rotation 70 Comments PSLR limited by hamstring tightness. Left Passive Testing Position Supine Straight Leg Raise 80 Abduction 39 Internal Rotation 25 External Rotation 75 Comments PSLR limited by medial/lateral knee pain PT-OP-M Strength Start: 06/29/20 18:09 Freq: Status: Active Protocol: Document 07/04/20 12:46 LRN (Rec: 07/04/20 13:38 LRN [id number]) Trunk Strength Trunk Manual Muscle Testing Core Stabilization Poor core stabilization with MMT of LE's. Hip Strength Hip Manual Muscle Testing Right Flexion (L2) 3 Fair Extension (S1) 3- Fair- Abduction 3 Fair Adduction 2 Poor External Rotation 3- Fair- Internal Rotation 3+ Fair+ Left Flexion (L2) 3+ Fair+ Extension (S1) 3+ Fair+ Abduction 3 Fair Adduction 2+ Poor+ External Rotation 3 Fair Internal Rotation 2+ Poor+ Comments Hip flex: pelvis rotates left (decreased R rot strength) PT-OP-Q Treatments Start: 06/29/20 18:09 Freq: Status: Active Protocol: Document 10/09/20 11:22 LRN (Rec: 10/09/20 12:42 LRN [id number]) Therapeutic Exercises Supine Exercises Hip AD for Quick Flics Supine Exercise Name PF lateral wall strengthening w/dunia hip AD quick flics Side bilateral Reps/Minutes 4' Comments Phys & v cuing needed for strengthening w/proper breathing BKFO Supine Exercise Name BKFO w/TA/PF Side bilateral Reps/Minutes 5' Comments Phys & v cuing required with training. TA tightening Supine Exercise Name Training of auto PF contraction w/TA Reps/Minutes 5 holds Comments phys & v cuing needed for auto training of PF with TA Manual Therapy Treatment Soft Tissue Mobilization Pubic Rami Body Location R Pubic Rami/Iliac crest compress Mobilization Type Myofascial Release Body Position Supine Pubic bone Body Location PA R pube/Ischiums compressed Mobilization Type Myofascial Release Body Position Supine Ischial-Ilial rebalancing Body Location Kyle Ischium/PSIS compress Mobilization Type Myofascial Release Body Position Supine Sacral Sheer Body Location Sacral sheer to L & PA R Sacral base Mobilization Type Myofascial Release Pelvis Body Location PSIS/Ischial Tubs/Pubic Rami, Pub symphysis Mobilization Type Myofascial Release Body Position Supine Self-Care/Home Management Treatment Education Patient Education Home Exercise Program Activities Self-Care/Home Management Activities Issued & reviewed HEP: BKFO w /core stab HEP: PF lateral wall strengthening with dunia hip AD ex. PT-OP-T Assessment and Plan Start: 06/29/20 18:09 Freq: Status: Active Protocol: Document 10/09/20 11:22 LRN (Rec: 10/09/20 12:42 LRN [id number]) Physical Therapy Assessment Rehab Potential Rehabilitation Potential Good Evaluation Complexity Number of Personal Factors/Comorbidities 1-2 Number of Body Systems Impaired 4 or More Clinical Presentation at Evaluation Evolving Impairments Impairments Activity Tolerance,Balance,ROM ,Soft Tissue Mobility,Strength Goals Four Impairment Decreased R LE and core strength Short Term Goal (STG) Pt will be independent in a HEP of hip and core stengthening exercises. (10/09/20: HEP issued for core /PF strengthening) STG Duration 09/29/20 (10/09/20: Progressing) Longterm Goal (LTG) Pt will be able to stabilize her core during ex's of her LE 's. (10/09/20: HEP issued) LTG Duration 12/15/20 Three Impairment Urinary incontinence (pt not able to make it to bathroom without leaking) Short Term Goal (STG) Pt will be able to perform a PF contraction in the absence of abdominal/gluteal muscles, and will be educated in urinary delay technique. STG Duration 07/28/20 (07/25/20: MET GOAL) Longterm Goal (LTG) With an urge to urinate, pt will be able to maintain urinary continence in the presence of a strong urge in order to make it to the bathroom without leaking. (07/25/20: Continent except for first thing in the morning). (08/08/20: Pt reported 80% continence with strong urge). (10/09/20: 90% control of continence). LTG Duration 12/15/20 (10/09/20: Improved 80%) Two Impairment Urinary leakage requiring use of depends daily Short Term Goal (STG) Improve PF strength with pt able to decrease use of depends pad. (10/09/20: Changing 1x/day, used to change 2-3x/day) STG Duration 08/24/20 (10/09/20: MET GOAL Certified Nurse Operating Room Goal (LTG) Pt will not have to use depends daily and will be able to decrease pad use to a mini pad daily. LTG Duration 12/15/20 One Impairment Lacks appropriate self care HEP. Short Term Goal (STG) Pt will be aware of the sensation of a proper PF contraction. STG Duration 07/28/20 (08/01/20: MET GOAL) Longterm Goal (LTG) Pt will be independent in a self care HEP for PF strengthening. LTG Duration 12/15/20 (08/17/20: Progressed with education) Progress Towards Goals Progress Comments Reduction in use of daily depends pads from 2-3x/week to 1x/week. Progressed HEP for core strengthening. Assessment Summary Assessment + response to manual therapy. Pelvis appears rebalanced with level pubic symphysis and ASIS in supine. Pt not yet automatically using proper breathing with transfers. Appears to have good understanding of getting and automatic PF contraction with TA tightening. Pt progress has been slow as expected due to her comorbidities and extended time between therapy for pt to have more time to work on her strengthening through a home program. Pt will benefit from continued therapy to progress towards achieving the above stated goals. Physical Therapy Plan Frequency and Duration Frequency of Treatment 1x/Week Plan of Care Start Date 10/09/20 Plan of Care End Date 12/15/20 Therapeutic Interventions Therapeutic Interventions Home Exercise Program,Joint Mobilizations,Manual Therapy, Neuromuscular Re-education, Patient/Caregiver Education, Self-Care/Home Management,Soft Tissue Mobilization, Therapeutic Activities, Therapeutic Exercises Modalities Biofeedback,Electric Stimulation Next Visit Focus/Plan Next Note Type Treatment Note Next Visit Plan Issue handouts for HEP for improved compliance with home ex's. Monitor proper breathing with transfers and body mechanics (stand<>sit<> sup); PF/core rotation/hip strengthening (avoiding onset of LLE sciatica), improve hip mobility. Focus on PF strengthening of bilateral lateral ceballos for quick flicks and long holds of 10 secs.
--- NOTE | 2020-10-16 12:24 | PT.OTN ---
Current Diagnoses Stiffness of unspecified hip, not elsewhere classified (10/16/20) Muscle weakness (generalized) (10/16/20) Other abnormalities of gait and mobility (10/16/20) Unspecified urinary incontinence (10/16/20) Urgency of urination (10/16/20) Physical Therapy Treatment Note PT-OP-A Visit Information Start: 06/29/20 18:09 Freq: Status: Active Protocol: Document 10/16/20 11:16 LRN (Rec: 10/16/20 12:23 LRN [id number]) Out-Patient Physical Therapy Visit Information Visit Information Visit Type Treatment Note Visit Start Time 11:16 Visit Stop Time 12:06 Total Visit Minutes 50 Visit Number 10 Evaluation Information Evaluation Date 07/04/20 Precautions Precautions PMH per pt: L CVA - 2009, Diabetes II, neuropathy in juana feet, RA, Osteopenia, arthriscopic R knee surgery 2007, dizziness, controlled HBP, falls (almost fell last week while carrying groceries up stairs, last fall was 4 yrs ago when tripped on cat and fractured R shoulder). PT-OP-B Current Condition Start: 06/29/20 18:09 Freq: Status: Active Protocol: Document 07/04/20 12:46 LRN (Rec: 07/04/20 13:38 LRN [id number]) Current Condition History of Current Condition Onset Date 1 yr ago with worsening in the past 6 months Current Complaints Urinary incontinence at night and sometimes durig the day. History of Current Condition Urinary urgency and incontinence. Once recognizes she has to urinate she is not able to make it to the toilet to urinate. During the nighttime and sometimes during the day. Has been doing some exercises given by Dr. Kamara and it has helped. Prior Treatments and Tests Exercises given by Dr. Kamara. Future Testing and Treatments Planned None Developmental History Developmental History Has had 2 vaginal births with no complications. Had urinary leakage during second but not afterwards. Has had L CVA with R sided weakness (pt is R handed), but did not affect urinary continence. Treatment Goals Patient/Caregiver Goals Pt goal is to not have to use depends and be able to make it to bathroom without leaking, and to be able to return to an exercise gym routine at [employer]. Prior Functional Status Baseline Function- ADL's Independent Baseline Function- Mobility Independent Baseline Function- Gait Ambs with step to gait due to L CVA Baseline Function- Recreation/Hobbies Exercised at [employer] prior to pandemic. Baseline Function- Other No urinary leakage 1 yr ago. Was able to go to [place] to [place] (30 minutes) without leakage, but needed to use bathroom in [place]. Current Functional Impairments (Reported) Functional Limitations- ADL's Urinary leakage after travelling from [place] to [place] (30 minutes). Functional Limitations- Recreation/ Has not returned to [employer] for exercise. 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 PT-OP-C Subjective Start: 06/29/20 18:09 Freq: Status: Active Protocol: Document 10/16/20 11:16 LRN (Rec: 10/16/20 12:23 LRN [id number]) OP-PT Subjective Patient Comments Patient Comments Still good control, urinary leakage 1-2, wearing 1 pad/day . States now it is the exception if she can't hold her urine. PT-OP-I Pelvic Floor Start: 06/29/20 18:09 Freq: Status: Active Protocol: Document 08/24/20 15:05 LRN (Rec: 08/24/20 16:27 LRN [id number]) Pelvic Floor Assessment Prolapse Uterine Prolapse Grade 1 Cystocele Grade 1 Contraction Ability Voluntary Contraction Weak Voluntary Relaxation Weak Manual Muscle Testing Left 2 Manual Muscle Testing Right 0 Manual Muscle Testing Anterior 0 Manual Muscle Testing Posterior 3 Muscle Endurance (Seconds) 4 Comments Pelvic Floor Comments Quick is 6x from posterior PF lift only. Muscle Endurance: 3-4 secs at posterior PF. 0/5 on left or right lateral ceballos. No tenderness of PF or tightness. 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 PT-OP-K Range of Motion Start: 06/29/20 18:09 Freq: Status: Active Protocol: Document 10/16/20 11:16 LRN (Rec: 10/16/20 12:23 LRN [id number]) Hip Goniometric Range of Motion Hip Right Passive Testing Position Supine Straight Leg Raise 80 Internal Rotation 40 External Rotation 70 Left Passive Testing Position Supine Straight Leg Raise 90 Internal Rotation 40 External Rotation 70 PT-OP-M Strength Start: 06/29/20 18:09 Freq: Status: Active Protocol: Document 07/04/20 12:46 LRN (Rec: 07/04/20 13:38 LRN [id number]) Trunk Strength Trunk Manual Muscle Testing Core Stabilization Poor core stabilization with MMT of LE's. Hip Strength Hip Manual Muscle Testing Right Flexion (L2) 3 Fair Extension (S1) 3- Fair- Abduction 3 Fair Adduction 2 Poor External Rotation 3- Fair- Internal Rotation 3+ Fair+ Left Flexion (L2) 3+ Fair+ Extension (S1) 3+ Fair+ Abduction 3 Fair Adduction 2+ Poor+ External Rotation 3 Fair Internal Rotation 2+ Poor+ Comments Hip flex: pelvis rotates left (decreased R rot strength) PT-OP-Q Treatments Start: 06/29/20 18:09 Freq: Status: Active Protocol: Document 10/16/20 11:16 LRN (Rec: 10/16/20 12:23 LRN [id number]) Therapeutic Exercises Supine Exercises Fig 4 stretch Supine Exercise Name Fig 4 stretch Side bilateral Reps/Minutes 4' Sitting Exercises Long Holds w/Hip AD Sitting Exercise Name Long holds w/TA/Hip AD Reps/Minutes 3' Quick Flicks w/Hip AD Sitting Exercise Name Quick Flicks w/TA/Hip AD Reps/Minutes 2' Hamstring/LE neural stretch Side right Reps/Minutes 4' Comments Extra time for training of max position & rest period Pirformis stretch Sitting Exercise Name Piriformis stretch juana with focus on L Side right Reps/Minutes 4' Comments Extra time for pt to show her stretch in standing. Therapeutic Activity Therapeutic Activity Sit<>Stand Name Sit to Stand with proper breathing, PF contraction, TA tight Reps/Minutes 19' Comments Multiple Repetitive training given. Sit <> Supine Name Sit <> Supine w/PF/proper breathing Reps/Minutes 6' Comments Repetitive training given Self-Care/Home Management Treatment Education Patient Education Home Exercise Program Other Education Pt educated in proper technique fo urinary delay technique with practice of routine. Activities Self-Care/Home Management Activities Issued & reviewed HEP: LE hamstring/neural stretch & Sit to stand for automatic contraction of PF with TA. PT-OP-T Assessment and Plan Start: 06/29/20 18:09 Freq: Status: Active Protocol: Document 10/16/20 11:16 LRN (Rec: 10/16/20 12:23 LRN [id number]) Physical Therapy Assessment Goals Four Impairment Decreased R LE and core strength Short Term Goal (STG) Pt will be independent in a HEP of hip and core stengthening exercises. (10/09/20: HEP issued for core /PF strengthening) STG Duration 09/29/20 (10/09/20: Progressing) Floor Finisher Helper Goal (LTG) Pt will be able to stabilize her core during ex's of her LE 's. (10/09/20: HEP issued) LTG Duration 12/15/20 Three Impairment Urinary incontinence (pt not able to make it to bathroom without leaking) Short Term Goal (STG) Pt will be able to perform a PF contraction in the absence of abdominal/gluteal muscles, and will be educated in urinary delay technique. STG Duration 07/28/20 (07/25/20: MET GOAL) [facility] Goal (LTG) With an urge to urinate, pt will be able to maintain urinary continence in the presence of a strong urge in order to make it to the bathroom without leaking. (07/25/20: Continent except for first thing in the morning). (08/08/20: Pt reported 80% continence with strong urge). (10/16/20: 90% control of continence). LTG Duration 12/15/20 (10/16/20: 90% controlled) Two Impairment Urinary leakage requiring use of depends daily Short Term Goal (STG) Improve PF strength with pt able to decrease use of depends pad. (10/09/20: Changing 1x/day, used to change 2-3x/day) STG Duration 08/24/20 (10/09/20: MET GOAL [facility]ci Goal (LTG) Pt will not have to use depends daily and will be able to decrease pad use to a mini pad daily. (10/16/20: Occasional need for more than mini pad when doesn 't have an urge until standing .) LTG Duration 12/15/20 (10/16/20: Improved, ocassional need for depends) One Impairment Lacks appropriate self care HEP. Short Term Goal (STG) Pt will be aware of the sensation of a proper PF contraction. STG Duration 07/28/20 (08/01/20: MET GOAL) [facility]ci Goal (LTG) Pt will be independent in a self care HEP for PF strengthening. LTG Duration 12/15/20 (10/16/20: Progressed) Progress Towards Goals Progress Comments Progressed HEP with PF contraction w/exhale and TA contraction on sit to stand, and Hamstring/neural stretch. Assessment Summary Assessment Pt hip mobility improved to be symmetrical except for PSLR: L>R. Pt was not doing urinary delay technique correctly, but had good understanding after education and training. If pt able to perform Urinary delay technique correctly she may show improved level of continence. Pt appears to have a better understanding of training for automatic PF contraction with a TA contraction after much practice. Physical Therapy Plan Frequency and Duration Frequency of Treatment 1x/Week Plan of Care Start Date 10/09/20 Plan of Care End Date 12/15/20 Next Visit Focus/Plan Next Note Type Treatment Note Next Visit Plan Review HEP and issue handouts for HEP pt not in compliance with. Check again for proper breathing/PF contraction with transfers and body mechanics ( stand<>sit<>sup); Progress PF/core rotation/hip strengthening (avoiding onset of LLE sciatica). Focus on PF strengthening of bilateral lateral ceballos for quick flicks and long holds of 10 secs, & on TA/PF contraction with LE movements and transfers.
--- NOTE | 2020-10-30 16:12 | PT.OTN ---
Current Diagnoses Stiffness of unspecified hip, not elsewhere classified (10/30/20) Muscle weakness (generalized) (10/30/20) Other abnormalities of gait and mobility (10/30/20) Unspecified urinary incontinence (10/30/20) Urgency of urination (10/30/20) Physical Therapy Treatment Note PT-OP-A Visit Information Start: 06/29/20 18:09 Freq: Status: Active Protocol: Document 10/30/20 11:31 LRN (Rec: 10/30/20 12:37 LRN [id number]) Out-Patient Physical Therapy Visit Information Visit Information Visit Type Discharge Summary Visit Note 2 after PN Visit Start Time 11:31 Visit Stop Time 12:21 Total Visit Minutes 50 Visit Number 11 Evaluation Information Evaluation Date 07/04/20 Precautions Precautions PMH per pt: L CVA - 2009, Diabetes II, neuropathy in juana feet, RA, Osteopenia, arthriscopic R knee surgery 2007, dizziness, controlled HBP, falls (almost fell last week while carrying groceries up stairs, last fall was 4 yrs ago when tripped on cat and fractured R shoulder). PT-OP-B Current Condition Start: 06/29/20 18:09 Freq: Status: Active Protocol: Document 07/04/20 12:46 LRN (Rec: 07/04/20 13:38 LRN [id number]) Current Condition History of Current Condition Onset Date 1 yr ago with worsening in the past 6 months Current Complaints Urinary incontinence at night and sometimes durig the day. History of Current Condition Urinary urgency and incontinence. Once recognizes she has to urinate she is not able to make it to the toilet to urinate. During the nighttime and sometimes during the day. Has been doing some exercises given by Dr. Kamara and it has helped. Prior Treatments and Tests Exercises given by Dr. Kamara. Future Testing and Treatments Planned None Developmental History Developmental History Has had 2 vaginal births with no complications. Had urinary leakage during second but not afterwards. Has had L CVA with R sided weakness (pt is R handed), but did not affect urinary continence. Treatment Goals Patient/Caregiver Goals Pt goal is to not have to use depends and be able to make it to bathroom without leaking, and to be able to return to an exercise gym routine at [employer]. Prior Functional Status Baseline Function- ADL's Independent Baseline Function- Mobility Independent Baseline Function- Gait Ambs with step to gait due to L CVA Baseline Function- Recreation/Hobbies Exercised at [employer] prior to pandemic. Baseline Function- Other No urinary leakage 1 yr ago. Was able to go to [place] to [place] (30 minutes) without leakage, but needed to use bathroom in [place]. Current Functional Impairments (Reported) Functional Limitations- ADL's Urinary leakage after travelling from [place] to [place] (30 minutes). Functional Limitations- Recreation/ Has not returned to [employer] for exercise. 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 PT-OP-C Subjective Start: 06/29/20 18:09 Freq: Status: Active Protocol: Document 10/30/20 11:31 LRN (Rec: 10/30/20 12:37 LRN [id number]) OP-PT Subjective Patient Comments Patient Comments Has gone backwards with leakages trying to get to bathroom. PT-OP-I Pelvic Floor Start: 06/29/20 18:09 Freq: Status: Active Protocol: Document 08/24/20 15:05 LRN (Rec: 08/24/20 16:27 LRN [id number]) Pelvic Floor Assessment Prolapse Uterine Prolapse Grade 1 Cystocele Grade 1 Contraction Ability Voluntary Contraction Weak Voluntary Relaxation Weak Manual Muscle Testing Left 2 Manual Muscle Testing Right 0 Manual Muscle Testing Anterior 0 Manual Muscle Testing Posterior 3 Muscle Endurance (Seconds) 4 Comments Pelvic Floor Comments Quick is 6x from posterior PF lift only. Muscle Endurance: 3-4 secs at posterior PF. 0/5 on left or right lateral ceballos. No tenderness of PF or tightness. 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 PT-OP-K Range of Motion Start: 06/29/20 18:09 Freq: Status: Active Protocol: Document 10/16/20 11:16 LRN (Rec: 10/16/20 12:23 LRN [id number]) Hip Goniometric Range of Motion Hip Right Passive Testing Position Supine Straight Leg Raise 80 Internal Rotation 40 External Rotation 70 Left Passive Testing Position Supine Straight Leg Raise 90 Internal Rotation 40 External Rotation 70 PT-OP-M Strength Start: 06/29/20 18:09 Freq: Status: Active Protocol: Document 07/04/20 12:46 LRN (Rec: 07/04/20 13:38 LRN [id number]) Trunk Strength Trunk Manual Muscle Testing Core Stabilization Poor core stabilization with MMT of LE's. Hip Strength Hip Manual Muscle Testing Right Flexion (L2) 3 Fair Extension (S1) 3- Fair- Abduction 3 Fair Adduction 2 Poor External Rotation 3- Fair- Internal Rotation 3+ Fair+ Left Flexion (L2) 3+ Fair+ Extension (S1) 3+ Fair+ Abduction 3 Fair Adduction 2+ Poor+ External Rotation 3 Fair Internal Rotation 2+ Poor+ Comments Hip flex: pelvis rotates left (decreased R rot strength) PT-OP-Q Treatments Start: 06/29/20 18:09 Freq: Status: Active Protocol: Document 10/30/20 11:31 LRN (Rec: 10/30/20 12:37 LRN [id number]) Therapeutic Exercises Supine Exercises Piriformis stretch Supine Exercise Name Piriformis stretch Side bilateral Reps/Minutes 2 positions (start and advanced) Comments phys & v cuing needed to determine max and appropriate stretch position. Pelvic Floor Clock Supine Exercise Name Pelvic Floor Clock verbal review Reps/Minutes 2' Sitting Exercises Quick Flicks w/hip AB Sitting Exercise Name Quick Flicks w/hip AB Equipment Used Lev 2 TBand Reps/Minutes 10x Comments v. cuing for quick 1 holds with proper sitting posture Long holds w/hip AB Sitting Exercise Name Long holds w/hip AB Equipment Used Lev 2 TBand Reps/Minutes 10x Comments V cuing & assist with TBand & posturing Long Holds w/Hip AD Sitting Exercise Name Long holds w/TA/Hip AD Reps/Minutes 10x Comments V cuing for proper posturing & use of pillow Quick Flicks w/Hip AD Sitting Exercise Name Quick Flicks w/TA/Hip AD Reps/Minutes 10x Comments V cuing for proper posturing. Hamstring/LE neural stretch Side right Reps/Minutes 10x Comments Extra time for review training of max position & rest period Pirformis stretch Sitting Exercise Name Piriformis stretch juana with focus on L Side right Reps/Minutes 10x Standing Exercises Bladder retraining Standing Exercise Name Sit to stand with PF contractions and talking to bladder Reps/Minutes 8' Comments V cuing needed for sequencing for bladder retraining. Self-Care/Home Management Treatment Education Patient Education Home Exercise Program Other Education Reviewed urinary delay technique with reminder of using talking to bladder to help with urinary control. Activities Self-Care/Home Management Activities Reviewed Piriformis stretch HEP in sitting on table. Issued & reviewed HEP: TA tightening (TA, PF, Multifidi) and TA with marching, TA with heel slides). Issued & reviewed Piriformis stretching in supine & sitting . Issued Lev 2 TBand. PT-OP-T Assessment and Plan Start: 06/29/20 18:09 Freq: Status: Active Protocol: Document 10/30/20 11:31 LRN (Rec: 10/30/20 12:37 LRN [id number]) Physical Therapy Assessment Goals Four Impairment Decreased R LE and core strength Short Term Goal (STG) Pt will be independent in a HEP of hip and core stengthening exercises. (10/09/20: HEP issued for core /PF strengthening) STG Duration 09/29/20 (10/30/20: MET GOAL) Cigarette [employer] Machine [employer]pper Feeder Goal (LTG) Pt will be able to stabilize her core during ex's of her LE 's. (10/09/20: HEP issued) LTG Duration 12/15/20 (10/30/20: NOT MET, pt aware and working on core stab) Three Impairment Urinary incontinence (pt not able to make it to bathroom without leaking) Short Term Goal (STG) Pt will be able to perform a PF contraction in the absence of abdominal/gluteal muscles, and will be educated in urinary delay technique. STG Duration 07/28/20 (07/25/20: MET GOAL) Longterm Goal (LTG) With an urge to urinate, pt will be able to maintain urinary continence in the presence of a strong urge in order to make it to the bathroom without leaking. (07/25/20: Continent except for first thing in the morning). (08/08/20: Pt reported 80% continence with strong urge). (10/16/20: 90% control of continence). LTG Duration 12/15/20 (10/30/20: 90% controlled) Two Impairment Urinary leakage requiring use of depends daily Short Term Goal (STG) Improve PF strength with pt able to decrease use of depends pad. (10/09/20: Changing 1x/day, used to change 2-3x/day) STG Duration 08/24/20 (10/09/20: MET GOAL Cigarette Making Machine Hopper Feeder Goal (LTG) Pt will not have to use depends daily and will be able to decrease pad use to a mini pad daily. (10/16/20: Occasional need for more than mini pad when doesn 't have an urge until standing .) LTG Duration 12/15/20 (10/30/20: Improved, ocassional need for depends) One Impairment Lacks appropriate self care HEP. Short Term Goal (STG) Pt will be aware of the sensation of a proper PF contraction. STG Duration 07/28/20 (08/01/20: MET GOAL) Longterm Goal (LTG) Pt will be independent in a self care HEP for PF strengthening. LTG Duration 12/15/20 (10/30/20: MET GOAL) Assessment Summary Assessment Pt had been doing quite well, but last week suffered a set back with increased episodes of leakage when walking to the bathroom. She also reported pain with urination and is thinking she might have a UTI, and noted she didn't think she was drinking enough water. The pt has not been consistent with PF HEP ex's and was not using the deferred technique completely. She was able to control her urine when getting an urge on standing and was able to use the bathroom without leaking. The pt feels confident in her HEP and feels ready to be placed on a home program, noting she did well when her therapy was more spread out. The pt has a home program that will help her work towards achieving her above stated goals. Physical Therapy Plan Discharge Physical Therapy Discharge Comments Pt has not yet met all her goals but feels confident in continuing on a home program to work towards the above stated goals not yet achieved. Pt is being discharged to her [facility]. Thank you for your referral.
== END 2020-10-31 07:52 | disposition home or self-care (01) ==
LOC: PHYS 11:15
PROVIDERS: Family Provider Student in an Organized Health Care Education/Training Program; PCP Student in an Organized Health Care Education/Training Program; Referring Provider Student in an Organized Health Care Education/Training Program; Visit Provider Student in an Organized Health Care Education/Training Program
DX: R32 Unspecified urinary incontinence (principal); R39.15 Urgency of urination; M62.81 Muscle weakness (generalized); M25.659 Stiffness of unspecified hip, not elsewhere classified; R26.89 Other abnormalities of gait and mobility
CPT/HCPCS: 97110; 97140; 97162; 97530; 97535

== ENCOUNTER → 2021-03-28 13:55 | Outpatient (CLI) | payer MEDICARE, OTHER, SELFPAY ==
--- NOTE | 2021-04-05 08:39 | P.HOLT.S_ITS ---
Manufacturing Quality Technician Report Referral & Results Date Patient Seen: 03/28/21 Requesting provider: Tl Kamara Indication: Syncope Duration of monitoring (days): 2 Diary information: There were no patient events to review Data: Minimum heart rate identified was 59 beats per minute at 15:56 on 03/28/2021 Maximum heart rate was 126 beats per minute at 23:29 on 03/28/2019 to Less than 1% of identified beats were ventricular or supraventricular ectopic in origin, which would classify them as rare. No pauses or atrial fibrillation were identified on this study Impression: Normal 2 day cardiac specialist that does not demonstrate an etiology for reported syncope
--- NOTE | 2021-04-20 16:14 | PM.CARDMON.1 ---
G[employer] Weigher Report Referral & Results Date Patient Seen: 03/28/21 Requesting provider: Tl Kamara Indication: Syncope Duration of monitoring (days): 2 Diary information: There are no patient events to review Data: Minimum heart rate identified was 59 beats per minute at 15:56 on 03/28/2021 Maximum heart rate was 126 beats per minute at 23:29 on 03/28/2021 Less than 1% of identified beats were ventricular or supraventricular ectopic in origin, which would classify them as rare. 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
--- NOTE | 2021-04-20 16:16 | P.HOLT.S_ITS ---
Sustainable Systems Analyst Report Referral & Results Date Patient Seen: 04/05/21 Requesting provider: Tl Kamara Indication: Syncope Duration of monitoring (days): 5 Diary information: There was 1 patient diary entry however this strip could not be found on the recording apparently Data: Minimum heart rate identified was 57 beats per minute at 09:18 on 04/09/2021 Maximum sinus heart rate was 135 beats per minute at 22:46 on 04/05/2021 Maximum overall heart rate was 160 beats per minute at 21:16 on 04/06/2021 during a run of SVT Less than 1% of identified beats were ventricular or supraventricular ectopic in origin, which would classify them as rare. 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
== END ==
PROVIDERS: Family Provider Student in an Organized Health Care Education/Training Program; PCP Student in an Organized Health Care Education/Training Program; Referring Provider Student in an Organized Health Care Education/Training Program; Visit Provider Student in an Organized Health Care Education/Training Program
DX: R55 Syncope and collapse (principal)
CPT/HCPCS: 93242; 93244

== ENCOUNTER 2021-04-12 07:20 | Emergency (ER) | payer MEDICARE, OTHER, SELFPAY ==
[2021-04-12] VITALS (14 sets, daily range): BP systolic 123–146; BP diastolic 58–77; PULSE 91–107; RESP 14–23; TEMP 36.4; O2SAT 86–100; BMI 24.6
--- NOTE | 2021-04-12 07:26 | ED_ITS ---
HPI - Syncope General Chief Complaint: Syncope Stated Complaint: Syncope Time Seen by Provider: 04/12/21 07:23 History of Present Illness HPI narrative: Patient brought in by ambulance for syncopal episode. Blood sugar 145. Patient was at home. Walking to the bathroom got dizzy and fell to the carpeted. Has abrasion to the right knee and foot. Denies any head or neck injury or pain. Patient is awake alert oriented x3 at this time. Patient has had Holter monitor recently. Please see report below. She is being followed by Dr. Shankar. First syncopal episode 3 months ago. Second 1 today. Today episode less than 30 seconds duration syncope. Denies any seizure history. Blood sugar on 1st episode she states was over 200. No nausea vomiting diarrhea. No palpitations or chest pain no abdominal pain or back pain pre event. Was treated for UTI back in January. No urinary complaints currently. Denies any black or bloody stools. No recent echocardiogram or carotid Dopplers. Denies any prior history of heart disease 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 Date of Service: 03/28/21 Provider:Slim Ray MD Project Construction Assistant Manager Report Referral & Results Date Patient Seen: 03/28/21 Requesting provider: Tl Kamara Indication: Syncope Duration of monitoring (days): 2 Diary information: There were no patient events to review Data: Minimum heart rate identified was 59 beats per minute at 15:56 on 03/28/2021 Maximum heart rate was 126 beats per minute at 23:29 on 03/28/2019 to Less than 1% of identified beats were ventricular or supraventricular ectopic in origin, which would classify them as rare. No pauses or atrial fibrillation were identified on this study Impression: Normal 2 day quality assurance monitor that does not demonstrate an etiology for reported syncope Signed By:<Electronically signed by Slim Moser MD> 04/05/21 0841 Related Data Home Medications Medication Instructions Recorded Confirmed MULTIVITAMIN (One Daily 1 tab PO QDAY #0 08/07/11 03/08/21 Multivitamin) [Vitamin D3] 10,000 iu QDAY #0 08/07/11 03/08/21 folic acid 1 mg tablet 1 mg PO QDAY #0 01/20/17 03/08/21 Test Strips - Freestyle Lite each 06/06/20 03/08/21 blood sugar diagnostic (Blood ea 06/06/20 03/08/21 Glucose Test) blood-glucose meter ea 06/06/20 03/08/21 Previous Rx's Medication Instructions Recorded Freestyle Lancets #100 ea 08/17/20 clopidogrel 75 mg tablet 75 mg PO QDAY #90 tab 09/06/20 simvastatin 20 mg tablet 20 mg PO BEDTIME #90 tab 11/10/20 metformin 850 mg tablet 850 mg PO TID #270 tab 01/02/21 pioglitazone 45 mg tablet 45 mg PO DAILY #90 tab 01/16/21 lisinopril 40 mg tablet 40 mg PO DAILY #90 tab 02/20/21 ibandronate 150 mg tablet 150 mg PO QMONTH #3 tab 03/02/21 levothyroxine 100 mcg tablet 100 mcg PO DAILY #90 tab 03/02/21 glipizide 10 mg tablet 10 mg PO BID #180 tab 03/20/21 Allergies Allergy/AdvReac Type Severity Reaction Status Date / Time sulfamethoxazole AdvReac Mild mouth ulcer Verified 03/08/21 09:56 [From Bactrim] trimethoprim [From Bactrim] AdvReac Mild mouth ulcer Verified 03/08/21 09:56 pioglitazone AdvReac Verified 03/08/21 09:40 Review of Systems Review of Systems Narrative: GENERAL: Denies chills, fatigue, malaise, fever, sweats. HEENT: Denies sinus pain, ear pain, sore throat RESPIRATORY: Denies dyspnea, cough CARDIOVASCULAR: Denies chest pain, palpitations GASTROINTESTINAL: Denies nausea, vomiting, abdominal pain : Denies dysuria, frequency, hematuria MUSCULOSKELETAL: denies muscle or bony pain SKIN: Denies rash, skin lesions, positive abrasion NEUROLOGIC: Denies weakness, numbness, positive syncope ROS Unobtainable: All systems reviewed & are unremarkable except as noted in HPI and below Patient History Medical History Acquired hypothyroidism (12/13/14) Bilateral carotid artery stenosis (04/18/17) Cataracts, bilateral (2012) Coronary artery stenosis Diabetes (~1996) Essential hypertension (12/13/14) GERD (gastroesophageal reflux disease) Gout Gout involving toe (09/27/15) History of stroke (04/18/17) Hyperlipemia Hyperuricemia (09/27/15) Hypothyroidism Osteopenia (06/28/16) Osteopenia Rheumatoid arthritis (~1996) Shoulder fracture, right (05/2016) Stroke (2009) Type 2 diabetes mellitus without complication, without long-term current use of insulin (12/20/16) Surgical History No history of previous surgery Family History Father No problems noted. Mother No problems noted. Social History household members: spouse Smoking Status: Never smoker alcohol intake: never substance use type: does not use Smoking Status: Never smoker Exam Narrative Exam Narrative: GENERAL: in no distress, not toxic not dyspneic HEAD: Normocephalic. EYES: Pupils equal round No scleral icterus. [place] conjunctiva ENT: Mucous membranes moist. NECK: Trachea midline. No carotid bruit CARDIOVASCULAR: Regular rate and rhythm without murmurs RESPIRATORY: Clear to auscultation. Breath sounds equal bilaterally. No wheezes, rales, or rhonchi. GASTROINTESTINAL: Abdomen soft, non-tender EXTREMITIES: No gross deformities. Small abrasion to the right patella as well as right foot. Nontender right hip knee and ankle. No gross deformity. BACK: No flank tenderness. NEURO: AOx4. 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 SKIN: Warm and dry PSYCH: Not anxious, is cooperative Initial Vital Signs Initial Vital Signs: Vital Signs Temperature 97.6 F 04/12/21 07:20 Pulse Rate 102 H 04/12/21 07:20 Respiratory Rate 18 04/12/21 07:20 Blood Pressure 141/77 H 04/12/21 07:20 Pulse Oximetry 100 04/12/21 07:20 Course Course Course Narrative: No new issues during course of stay. Orders Ordered: Discontinued Medications Sodium Chloride (Normal Saline 0.9%) 500 mls @ 1,000 mls/hr IV BOLUS ONE Stop: 04/12/21 10:16 Last Infusion: 04/12/21 10:58 Dose: 0 mls/hr Documented by: Admin: 04/12/21 10:05 Dose: 1,000 mls/hr Documented by: DAMON Reevaluation(s) Reevaluation #1: Updated patient results so far. Awaiting CT scan of chest. Reviewed discussion with her primary care with her. Outpatient follow-up for echocardiogram and carotid Dopplers. She agrees with treatment plan Time: 09:49 Consultations Consultation #1: Spoke with primary care, Dr. Kamara. At this time do not admit patient. He would like to see patient in the office and to schedule outpatient echocardiogram and carotid Dopplers. He will and blood work to today specimens. Time: 09:49 Vital Signs Vital signs: Vital Signs - 8 hr 04/12/21 07:20 04/12/21 07:47 04/12/21 08:01 Temperature 97.6 F Pulse Rate 102 H 93 H 98 H Pulse Rate [Orthostatic Lying] Pulse Rate [Orthostatic Sitting] Pulse Rate [Orthostatic Standing] Respiratory Rate 18 21 19 Blood Pressure 141/77 H Blood Pressure [Orthostatic Lying] Blood Pressure [Orthostatic Sitting] Blood Pressure [Orthostatic Standing] Pulse Oximetry 100 99 99 04/12/21 08:02 04/12/21 08:28 04/12/21 08:30 Temperature Pulse Rate 96 H 94 H 107 H Pulse Rate [Orthostatic Lying] Pulse Rate [Orthostatic Sitting] Pulse Rate [Orthostatic Standing] Respiratory Rate 22 14 23 Blood Pressure 146/66 H 143/66 H 144/64 H Blood Pressure [Orthostatic Lying] Blood Pressure [Orthostatic Sitting] Blood Pressure [Orthostatic Standing] Pulse Oximetry 99 98 04/12/21 08:40 04/12/21 08:53 04/12/21 09:00 Temperature Pulse Rate 98 H 94 H Pulse Rate [Orthostatic Lying] 92 H Pulse Rate [Orthostatic Sitting] 94 H Pulse Rate [Orthostatic Standing] 101 H Respiratory Rate 18 18 Blood Pressure 136/63 125/58 L Blood Pressure [Orthostatic Lying] 143/66 H Blood Pressure [Orthostatic Sitting] 142/65 H Blood Pressure [Orthostatic Standing] 144/64 H Pulse Oximetry 98 98 04/12/21 09:40 04/12/21 09:50 04/12/21 10:00 Temperature Pulse Rate 94 H 93 H Pulse Rate [Orthostatic Lying] Pulse Rate [Orthostatic Sitting] Pulse Rate [Orthostatic Standing] Respiratory Rate 22 15 Blood Pressure 138/63 132/60 Blood Pressure [Orthostatic Lying] Blood Pressure [Orthostatic Sitting] Blood Pressure [Orthostatic Standing] Pulse Oximetry 86 L 99 100 04/12/21 10:13 Temperature Pulse Rate 96 H Pulse Rate [Orthostatic Lying] Pulse Rate [Orthostatic Sitting] Pulse Rate [Orthostatic Standing] Respiratory Rate 22 Blood Pressure 123/58 L Blood Pressure [Orthostatic Lying] Blood Pressure [Orthostatic Sitting] Blood Pressure [Orthostatic Standing] Pulse Oximetry 100 MDM - Syncope Differential Diagnosis Differential diagnosis: Likely syncope due to orthostatic hypotension, vasovagal syncope, complete atrioventricular block and dehydration Lab Data Result diagrams: 04/12/21 08:10 04/12/21 08:10 Labs: Lab Results 04/12/21 04/12/21 04/12/21 Range/Units 08:10 08:10 08:10 WBC 7.1 (4.5-11.0) X10^3/uL RBC 2.96 L (4.0-5.2) X10^6/uL Hgb 9.9 L (12.0-16.0) g/dL Hct 30.3 L (36-46) % MCV 102.4 H (80-100) fL MCH 33.5 (26-34) PG MCHC 32.8 (30-36) % RDW 18.4 H (11.6-14.8) % Plt Count 372 (150-400) X10^3/uL Neut % (Auto) 68.2 (50-75) % Lymph % (Auto) 20.4 L (25-40) % [place] % (Auto) 9.5 (3-14) % Eos % (Auto) 1.3 L (2-4) % Baso % (Auto) 0.6 (0-2) % Neut # (Auto) 4800 (5598-8693) /uL Lymph # (Auto) 1400 (1546-3391) /uL [place] # (Auto) 700 (0-900) /uL Eos # (Auto) 100 (0-450) /uL Baso # (Auto) 0 (0-100) /uL Percent Retic (1.1-2.6) % Sodium 139 (137-145) mmol/L Potassium 4.6 (3.4-5.1) mmol/L Chloride 107 (98-107) mmol/L Carbon Dioxide 24 (22-32) mmol/L BUN 14 (7-17) mg/dL Creatinine 0.69 (0.52-1.04) mg/dL Estimated GFR > 60.0 (>60) mL/min BUN/Creatinine Ratio 20.3 (6-22) Glucose 216 H (80-110) mg/dL Calcium 9.6 (8.4-10.2) mg/dL Magnesium 2.0 (1.6-2.3) mg/dL Iron 73 (37-170) ug/dL TIBC 358 (265-497) ug/dL % Saturation 20 (15-50) % Transferrin 272 (206-381) mg/dL Ferritin 66 (11-264) ng/mL Total Bilirubin 0.3 (0.2-1.3) mg/dL AST 32 (14-36) IU/L ALT 19 (<35) IU/L Alkaline Phosphatase 67 (38-126) U/L Lactate Dehydrogenase 500 (313-618) U/L Total Creatine Kinase 38 (30-135) U/L CK-MB (CK-2) TNP CK-MB (CK-2) Rel Index TNP Troponin I < 0.012 (0.01-0.034) ng/mL Total Protein 6.8 (6.3-8.2) g/dL Albumin 4.3 (3.5-5.0) g/dL Globulin 2.5 (1.7-4.1) g/dL Albumin/Globulin Ratio 1.7 (1.0-2.8) Lipase 230 (23-300) U/L Vitamin B12 825 (239-931) pg/mL Urine Color Urine Appearance Urine pH (4.5-8.0) Ur Specific [place] (1.000-1.035) Urine Protein (Negative) Urine Glucose (UA) (Negative) g/dL Urine Ketones (NEGATIVE) Urine Occult Blood (Negative) Urine Nitrate (Negative) Urine Bilirubin (NEGATIVE) Urine Urobilinogen (0.2) E.U./dL Ur Leukocyte Esterase (NEGATIVE) Urine RBC (0-5/HPF) Urine WBC (0-5/HPF) Ur Squamous Epith Cells (0-5/HPF) Urine Bacteria (None) Ur Culture Indicated? 04/12/21 04/12/21 Range/Units 08:10 08:45 WBC (4.5-11.0) X10^3/uL RBC (4.0-5.2) X10^6/uL Hgb (12.0-16.0) g/dL Hct (36-46) % MCV (80-100) fL MCH (26-34) PG MCHC (30-36) % RDW (11.6-14.8) % Plt Count (150-400) X10^3/uL Neut % (Auto) (50-75) % Lymph % (Auto) (25-40) % [place] % (Auto) (3-14) % Eos % (Auto) (2-4) % Baso % (Auto) (0-2) % Neut # (Auto) (3918-0160) /uL Lymph # (Auto) (7547-6849) /uL [place] # (Auto) (0-900) /uL Eos # (Auto) (0-450) /uL Baso # (Auto) (0-100) /uL Percent Retic 2.9 H (1.1-2.6) % Sodium (137-145) mmol/L Potassium (3.4-5.1) mmol/L Chloride (98-107) mmol/L Carbon Dioxide (22-32) mmol/L BUN (7-17) mg/dL Creatinine (0.52-1.04) mg/dL Estimated GFR (>60) mL/min BUN/Creatinine Ratio (6-22) Glucose (80-110) mg/dL Calcium (8.4-10.2) mg/dL Magnesium (1.6-2.3) mg/dL Iron (37-170) ug/dL TIBC (265-497) ug/dL % Saturation (15-50) % Transferrin (206-381) mg/dL Ferritin (11-264) ng/mL Total Bilirubin (0.2-1.3) mg/dL AST (14-36) IU/L ALT (<35) IU/L Alkaline Phosphatase (38-126) U/L Lactate Dehydrogenase (313-618) U/L Total Creatine Kinase (30-135) U/L CK-MB (CK-2) CK-MB (CK-2) Rel Index Troponin I (0.01-0.034) ng/mL Total Protein (6.3-8.2) g/dL Albumin (3.5-5.0) g/dL Globulin (1.7-4.1) g/dL Albumin/Globulin Ratio (1.0-2.8) Lipase (23-300) U/L Vitamin B12 (239-931) pg/mL Urine Color Yellow Urine Appearance Clear Urine pH 5.5 (4.5-8.0) Ur Specific [place] 1.010 (1.000-1.035) Urine Protein Negative (Negative) Urine Glucose (UA) Negative (Negative) g/dL Urine Ketones Negative (NEGATIVE) Urine Occult Blood Trace-lysed (Negative) Urine Nitrate Negative (Negative) Urine Bilirubin Negative (NEGATIVE) Urine Urobilinogen 0.2 (0.2) E.U./dL Ur Leukocyte Esterase 2+ H (NEGATIVE) Urine RBC 1-5/hpf (0-5/HPF) Urine WBC 10-30/hpf H (0-5/HPF) Ur Squamous Epith Cells None seen (0-5/HPF) Urine Bacteria Many (>30) H (None) Ur Culture Indicated? Specimen cultured Imaging Data CT scan - head: Radiologist's Impression: [place] [address] CT Scan Report Signed Patient: Margarita Healy MR#: [id number] : 1945 Acct:[id number] Age/Sex: 75 / F Date of Service: 04/12/21 Loc: ED Accession Number: [id number] ?? Procedure: CT head/brain wo con Ordering Provider: Kael Dee MD PROCEDURE:? CT HEAD/BRAIN WO CON ? INDICATIONS:? Syncope ? TECHNIQUE:? Noncontrast 4.5 mm thick angled axial sections acquired from the foramen magnum to the vertex, with coronal and sagittal reformats.? For radiation dose reduction, the following was used:? automated exposure control, adjustment of mA and/or kV according to patient size.? ? COMPARISON:? US, CAROTID ARTERY DOPPLER BILAT, 05/05/2017, 12:24. ? FINDINGS:? Image quality:? Excellent.? ? CSF spaces:? Basal cisterns are patent.? No extra-axial fluid collections.? The ventricles are symmetric in size and shape.? ? Brain:? No intracranial bleeds or masses.? There is moderate cerebral volume loss for age, with resultant ventricular and sulcal prominence.? There are severe periventricular and deep white matter chronic small vessel ischemic changes.? There is intracranial internal carotid artery atherosclerosis.? ? Skull and face:? Calvarium and visualized facial bones appear intact, without suspicious lesions.? ? Sinuses:? Visualized sinuses and mastoids are clear.? ? IMPRESSION:? ? 1. No acute intracranial abnormalities. ? 2. Cerebral volume loss and chronic microvascular ischemic changes. ? ? ? Dictated by: Jessy Boswell M.D. on 04/12/2021 at 8:04 ? ? Approved by: Jessy Boswell M.D. on 04/12/2021 at 8:09 ? Chest x-ray: Radiologist's Impression: [place] [address] XRay Report Signed Patient: Margarita Healy MR#: [id number] : 1945 Acct:[id number] Age/Sex: 75 / F Date of Service: 04/12/21 Loc: ED Accession Number: [id number] ?? Procedure: XR chest 1V Ordering Provider: Kael Dee MD PROCEDURE:? XR CHEST 1V ? INDICATIONS:? chest pain ? TECHNIQUE:? One view of the chest was acquired.? ? COMPARISON:? None. ? FINDINGS:? ? Surgical changes and devices:? None.? ? Lungs and pleura:? There is a slight asymmetric overlying medial right apex. ? Mediastinum:? Mediastinal contours appear normal.? Heart size is normal.? ? Bones and chest wall:? No suspicious bony lesions.? Overlying soft tissues appear unremarkable.? ? IMPRESSION:? Slight asymmetric right medial apex opacity.? While this could be secondary to rotation, area of infiltrate or mass within this region cannot be excluded.? No priors are available for comparison.? CT is recommended for further evaluation. ? ? Dictated by: Larisa Peterson M.D. on 04/12/2021 at 8:12 ? ? Approved by: Larisa Peterson M.D. on 04/12/2021 at 8:13 ? CT scan - chest: Radiologist's Impression: [address] [address] [address] Scan Report Signed Patient: Margarita Healy MR#: [id number] : 1945 Acct:[id number] Age/Sex: 75 / F Date of Service: 04/12/21 Loc: ED Accession Number: [id number] ?? Procedure: CT chest wo con Ordering Provider: Kael Dee MD PROCEDURE:? CT CHEST WO CON ? INDICATIONS:? Possible lung mass ? TECHNIQUE: Noncontrast 5 mm thick sections acquired from the pulmonary apices to the posterior costophrenic angles.? 1 mm lung window, 5 mm thick coronal and sagittal and 7 mm axial MIP reformats were then acquired.? For radiation dose reduction, the following was used:? automated exposure control, adjustment of mA and/or kV according to patient size.? ? COMPARISON:? None. ? FINDINGS:? Image quality:? Excellent.? ? Lungs and pleura:? No acute air space opacities.? No pleural effusions or pneumothorax.? Central and peripheral airways are patent and normal in caliber.? Emphysematous changes are present. ? Mediastinum:? Heart size is normal.? No pericardial effusion.? No mediastinal adenopathy by size criteria.? Thoracic aorta and central pulmonary arteries are normal in size.? Esophagus is normal in caliber.? No hiatal hernia.? ? Bones and chest wall:? No suspicious bony lesions.? No vertebral body compression fractures.? No axillary or supraclavicular adenopathy by size criteria.? Thyroid gland is unremarkable .? ? Abdomen:? Several foci of rounded calcification are noted within the splenic vasculature suggestive of aneurysms.? The largest measures 7 mm.? No priors are available for comparison.? Otherwise, visualized upper abdominal solid organs and bowel loops appear normal in the absence of contrast.? ? IMPRESSION:? ? No pulmonary mass.? Opacity identified on x-ray was likely related to patient rotation. ? ? Dictated by: Larisa Peterson M.D. on 04/12/2021 at 10:20 ? ? Approved by: Larisa Peterson M.D. on 04/12/2021 at 10:23 ? ECG Data Interpretation: Normal sinus rhythm rate [address] elevation or depression. MDM Narrative Medical decision making narrative: Appropriate for discharge home. Exam and laboratory studies and imaging reassuring. Heart rate did improve with IV fluids. At this time differential includes vasovagal verses anemia versus dehydration. However primary care indicates to discharge patient home for outpatient follow-up and further studies. Patient and agree for treatment plan and discharged home. Return precautions reviewed with them. At this time likely not arrhythmia. Not stroke. Discharge Plan Departure Patient Disposition: Home Clinical Impression: Syncope, Contusion of knee, right Instructions: DI for Syncope in Adults (Fainting), DI for Contusion Activity Restrictions/Additional Instructions: Call radiographic studying office today [phone]. Your family doctor has scheduled some outpatient studies for you. This includes echocardiogram and possible ultrasound of the neck. if worse if any questions or concerns. May continue home medications. Prescriptions: No Action [Vitamin D3] 10,000 iu QDAY Qty: 0 0RF MULTIVITAMIN (One Daily Multivitamin) 1 tab PO QDAY Qty: 0 0RF folic acid 1 MG tablet 1 mg PO QDAY Qty: 0 0RF (DME) Freestyle Lancets See Rx Instructions .Route .MEDSUPPLY Qty: 100 5RF Dose Instruction: .QDAY; Rx Instructions: Use to test blood sugar twice daily clopidogrel 75 mg tablet 75 mg PO QDAY Qty: 90 2RF simvastatin 20 mg tablet 20 mg PO BEDTIME Qty: 90 2RF metformin 850 mg tablet 850 mg PO TID Qty: 270 0RF Rx Instructions: Take with food pioglitazone 45 mg tablet 45 mg PO DAILY Qty: 90 1RF lisinopril 40 mg tablet 40 mg PO DAILY Qty: 90 3RF ibandronate 150 mg tablet 150 mg PO QMONTH Qty: 3 3RF levothyroxine 100 mcg tablet 100 mcg PO DAILY Qty: 90 3RF (DME) Blood Glucose Test Strip See Rx Instructions .ROUTE .MEDSUPPLY 0RF Rx Instructions: Use to check blood glucose twice daily (DME) blood-glucose meter Misc See Rx Instructions .ROUTE .MEDSUPPLY 0RF Rx Instructions: Use to check blood glucose twice daily (DME) Test Strips - Freestyle Lite See Rx Instructions .Route .MEDSUPPLY 0RF Dose Instruction: QDAY; Rx Instructions: Use one freestyle test strip to test blood sugar twice daily glipizide 10 mg tablet 10 mg PO BID Qty: 180 1RF Referrals: Tl Kamara MD [Primary Care Provider] -
--- NOTE | 2021-04-12 07:38 | DI.RAD.S_ITS ---
PROCEDURE: XR CHEST 1V INDICATIONS: chest pain TECHNIQUE: One view of the chest was acquired. COMPARISON: None. FINDINGS: Surgical changes and devices: None. Lungs and pleura: There is a slight asymmetric overlying medial right apex. Mediastinum: Mediastinal contours appear normal. Heart size is normal. Bones and chest wall: No suspicious bony lesions. Overlying soft tissues appear unremarkable. IMPRESSION: Slight asymmetric right medial apex opacity. While this could be secondary to rotation, area of infiltrate or mass within this region cannot be excluded. No priors are available for comparison. CT is recommended for further evaluation. Dictated by: Larisa Peterson M.D. on 04/12/2021 at 8:12 Approved by: Larisa Peterson M.D. on 04/12/2021 at 8:13
--- NOTE | 2021-04-12 07:40 | DI.CT.S_ITS ---
PROCEDURE: CT HEAD/BRAIN WO CON INDICATIONS: Syncope TECHNIQUE: Noncontrast 4.5 mm thick angled axial sections acquired from the foramen magnum to the vertex, with coronal and sagittal reformats. For radiation dose reduction, the following was used: automated exposure control, adjustment of mA and/or kV according to patient size. COMPARISON: US, CAROTID ARTERY DOPPLER BILAT, 05/05/2017, 12:24. FINDINGS: Image quality: Excellent. CSF spaces: Basal cisterns are patent. No extra-axial fluid collections. The ventricles are symmetric in size and shape. Brain: No intracranial bleeds or masses. There is moderate cerebral volume loss for age, with resultant ventricular and sulcal prominence. There are severe periventricular and deep white matter chronic small vessel ischemic changes. There is intracranial internal carotid artery atherosclerosis. Skull and face: Calvarium and visualized facial bones appear intact, without suspicious lesions. Sinuses: Visualized sinuses and mastoids are clear. IMPRESSION: 1. No acute intracranial abnormalities. 2. Cerebral volume loss and chronic microvascular ischemic changes. Dictated by: Jessy Boswell M.D. on 04/12/2021 at 8:04 Approved by: Jessy Boswell M.D. on 04/12/2021 at 8:09
--- NOTE | 2021-04-12 08:20 | PC.NURSE ---
Patient was brought into ED VIA [facility] following a fall with syncope. Denies hitting head, says that she passed out for about a minute. Reports that she was going down the hallway to the bathroom when she had a syncopal episode and fell. Patient has history of stroke in 2009, with some residual right sided deficits. Patient takes clopidogrel daily for anticoagulant r/t stroke history. Denies other cardiac or neuro history.
[2021-04-12 08:27] LABS: Add Manual Diff / Slide Review NO; Basophils Absolute Auto 0 /uL (0-100); Basophils Percent Auto 0.6 % (0-2); Eosinophils Absolute Auto 100 /uL (0-450); Eosinophils Percent Auto 1.3 % (2-4); Hematocrit 30.3 % (36-46); Hemoglobin 9.9 g/dL (12.0-16.0); Lymphocytes Absolute Auto 1400 /uL (1100-4500); Lymphocytes Percent Auto 20.4 % (25-40); Mean Corpuscular HGB Conc 32.8 % (30-36); Mean Corpuscular Hemoglobin 33.5 PG (26-34); Mean Corpuscular Volume 102.4 fL (80-100); Monocytes Absolute Auto 700 /uL (0-900); Monocytes Percent Auto 9.5 % (3-14); Neutrophils Absolute Auto 4800 /uL (1500-7000); Neutrophils Percent Auto 68.2 % (50-75); Platelet Count 372 X10^3/uL (150-400); Red Blood Cell Count 2.96 X10^6/uL (4.0-5.2); Red Cell Distribution Width 18.4 % (11.6-14.8); White Blood Cell Count 7.1 X10^3/uL (4.5-11.0)
[2021-04-12 08:39] LABS: Alanine Aminotransferase 19 IU/L (<35); Albumin 4.3 g/dL (3.5-5.0); Albumin Globulin Ratio 1.7 (1.0-2.8); Alkaline Phosphatase 67 U/L (38-126); Aspartate Aminotransferase 32 IU/L (14-36); BUN Creatinine Ratio 20.3 (6-22); Bilirubin Total 0.3 mg/dL (0.2-1.3); Blood Urea Nitrogen 14 mg/dL (7-17); Calcium 9.6 mg/dL (8.4-10.2); Carbon Dioxide 24 mmol/L (22-32); Chloride 107 mmol/L (98-107); Creatine Kinase 38 U/L (30-135); Estimated Glomerular Filt Rate > 60.0 mL/min (>60); Globulin 2.5 g/dL (1.7-4.1); Glucose 216 mg/dL (80-110); HEMOLYSIS < 15 (0-50); Lipase 230 U/L (23-300); Potassium 4.6 mmol/L (3.4-5.1); Sodium 139 mmol/L (137-145); Total Protein 6.8 g/dL (6.3-8.2)
[2021-04-12 08:51] LABS: Troponin I < 0.012 ng/mL (0.01-0.034)
[2021-04-12 09:09] LABS: Appearance Urine UA CLEAR; Bilirubin Urine UA NEGATIVE (NEGATIVE); Color Urine UA YELLOW; Glucose Urine UA NEGATIVE (Negative); Ketones Urine UA NEGATIVE (NEGATIVE); Leukocyte Esterase Urine UA 2+ (NEGATIVE); Nitrite Urine UA NEGATIVE (Negative); Occult Blood Urine UA TRACE-LYSED (Negative); Protein Urine UA NEGATIVE (Negative); Urobilinogen Urine UA 0.2 E.U./dL (0.2)
[2021-04-12 09:11] LABS: pH Urine UA 5.5 (4.5-8.0)
[2021-04-12 09:20] LABS: Bacteria Urine Many (>30); Culture Indicated Urine Specimen Cultured; RBC Urine 1-5/HPF (0-5/HPF); Squamous Epithelial Cell Urine None Seen (0-5/HPF); WBC Urine 10-30/HPF (0-5/HPF)
[2021-04-12] MEDS: SODIUM CHLORIDE 0.9% 500 ML 1000 ML IV (10:05)
--- NOTE | 2021-04-12 10:07 | DI.CT.S_ITS ---
PROCEDURE: CT CHEST WO CON INDICATIONS: Possible lung mass TECHNIQUE: Noncontrast 5 mm thick sections acquired from the pulmonary apices to the posterior costophrenic angles. 1 mm lung window, 5 mm thick coronal and sagittal and 7 mm axial MIP reformats were then acquired. For radiation dose reduction, the following was used: automated exposure control, adjustment of mA and/or kV according to patient size. COMPARISON: None. FINDINGS: Image quality: Excellent. Lungs and pleura: No acute air space opacities. No pleural effusions or pneumothorax. Central and peripheral airways are patent and normal in caliber. Emphysematous changes are present. Mediastinum: Heart size is normal. No pericardial effusion. No mediastinal adenopathy by size criteria. Thoracic aorta and central pulmonary arteries are normal in size. Esophagus is normal in caliber. No hiatal hernia. Bones and chest wall: No suspicious bony lesions. No vertebral body compression fractures. No axillary or supraclavicular adenopathy by size criteria. Thyroid gland is unremarkable . Abdomen: Several foci of rounded calcification are noted within the splenic vasculature suggestive of aneurysms. The largest measures 7 mm. No priors are available for comparison. Otherwise, visualized upper abdominal solid organs and bowel loops appear normal in the absence of contrast. IMPRESSION: No pulmonary mass. Opacity identified on x-ray was likely related to patient rotation. Dictated by: Larisa Peterson M.D. on 04/12/2021 at 10:20 Approved by: Larisa Peterson M.D. on 04/12/2021 at 10:23
[2021-04-12 10:15] LABS: HEMOLYSIS < 15 (0-50); Iron 73 ug/dL (37-170); Lactate Dehydrogenase 500 U/L (313-618)
[2021-04-12 10:21] LABS: Reticulocyte Count, Percent 2.9 % (1.1-2.6)
[2021-04-12 10:25] LABS: Percent Iron Saturation 20 % (15-50); Total Iron Binding Capacity 358 ug/dL (265-497); Transferrin 272 mg/dL (206-381)
[2021-04-12 10:53] LABS: Ferritin 66 ng/mL (11-264)
[2021-04-12 11:07] LABS: Vitamin B12 825 pg/mL (239-931)
== END 2021-04-12 11:02 | disposition home or self-care (01) ==
PROVIDERS: Emergency Provider Emergency Medicine; Family Provider Student in an Organized Health Care Education/Training Program; PCP Student in an Organized Health Care Education/Training Program
DX: R55 Syncope and collapse (principal); S80.01XA Contusion of right knee, initial encounter; N39.0 Urinary tract infection, site not specified; B96.20 Unspecified Escherichia coli [E. coli] as the cause of diseases classified elsewhere; Z16.30 Resistance to unspecified antimicrobial drugs; Z88.1 Allergy status to other antibiotic agents; W19.XXXA Unspecified fall, initial encounter; Y93.01 Activity, walking, marching and hiking
CPT/HCPCS: 70450; 71045; 71250; 80053; 81001; 82550; 82607; 82728; 83540; 83550; 83615; 83690; 83735; 84484; 85025; 85045; 87077; 87086; 87186; 93005; 96360; 99284

== ENCOUNTER → 2021-05-08 12:42 | Outpatient (CLI) | payer MEDICARE, OTHER, SELFPAY ==
--- NOTE | 2021-05-08 12:46 | DI.US.S_ITS ---
PROCEDURE: US CAROTID DOPPLER BI INDICATIONS: Syncope TECHNIQUE: Color and pulse Doppler interrogation was performed of both carotid systems, with image documentation and velocity measurements. COMPARISON: [facility], , CAROTID ARTERY DOPPLER BILAT, 05/05/2017, 12:24. FINDINGS: Stenosis calculations are based on SRU (Society of Radiologists in Ultrasound) criteria. Right side: Brachial blood pressure: 163/72 mm Hg. Common carotid artery peak systolic velocity: 72 cm/sec. Internal carotid artery peak systolic velocity: 82 cm/sec. Internal carotid artery end diastolic velocity: 24 cm/sec. External carotid artery peak systolic velocity: 97 cm/sec. ICA/CCA peak systolic ratio: 1.14 . Box scale imaging description: Calcified plaque Percent internal carotid artery stenosis: Less than 50% . Vertebral artery: Flow direction is antegrade. Left side: Brachial blood pressure: 162/76 mm Hg. Common carotid artery peak systolic velocity: 83 cm/sec. Internal carotid artery peak systolic velocity: 84 cm/sec. Internal carotid artery end diastolic velocity: 24 cm/sec. External carotid artery peak systolic velocity: 116 cm/sec. ICA/CCA peak systolic ratio: 1.01 . Box scale imaging description: Calcified plaque Percent internal carotid artery stenosis: Less than 50% . Vertebral artery: Flow direction is antegrade. IMPRESSION: 1. Less than 50% stenosis of the origins of the internal carotid arteries bilaterally. 2. Hypertension at the time of imaging. Dictated by: Elisa Reyes MD, PhD on 05/08/2021 at 13:43 Approved by: Elisa Reyes MD, PhD on 05/08/2021 at 13:45
== END ==
PROVIDERS: Family Provider Student in an Organized Health Care Education/Training Program; PCP Student in an Organized Health Care Education/Training Program; Referring Provider Student in an Organized Health Care Education/Training Program; Visit Provider Student in an Organized Health Care Education/Training Program
DX: I65.23 Occlusion and stenosis of bilateral carotid arteries (principal); R55 Syncope and collapse; R03.0 Elevated blood-pressure reading, without diagnosis of hypertension
CPT/HCPCS: 93880

== ENCOUNTER → 2021-05-24 13:50 | Outpatient (CLI) | payer MEDICARE, OTHER, SELFPAY ==
--- NOTE | 2021-05-24 13:53 | DI.ECHO.S_ITS ---
[facility]---------+ [facility] +---------+ : : [address] : : : : [id number] : : : : Phone: [phone]+ Echocardiogram Report + + :Name: ELIZABETH RODRIGUEZ Study Date: 05/24/2021 Height: 64 in : :[facility] ReadingLocation: Weight: 139 lb : : Gender: Female BSA: 1.7 m2 : :: 1945 Age: 75 yrs BP: 183/88 mmHg: :Reason For Study: SYNCOPE : :Ordering Physician: JOSEF, : :ROSI COOK Performed By: Eleanor Barcenas : :Referring: ROSI BAHENA MD : + + Interpretation Summary 1) Normal left ventricular thickness, size, wall motion, and systolic function (EF 60-65%). 2) Normal right ventricular size and function. 3) No significant valvular abnormalities. 4) No prior Echo available for comparison. Procedure: A two-dimensional transthoracic echocardiogram with color flow and Doppler was performed. The study quality was technically adequate. There is no prior echocardiogram noted for this patient. The patient was in sinus rhythm with heart rates between 74-81 bpm during the exam. Left Ventricle: The left ventricle is normal in size and wall thickness. The ejection fraction is estimated to be 60-65%. Left ventricular systolic function appears normal without focal wall motion abnormalities. Right Ventricle: The right ventricle is normal in size and function. Atria: The left atrial size is normal. Right atrial size is normal. There is no Doppler evidence for an interatrial shunt. Mitral Valve: The mitral valve is normal in structure and function. There is mild mitral regurgitation. Aortic Valve: The aortic valve is trileaflet. The aortic valve opens well. There is no aortic valve stenosis. No aortic regurgitation is present. Tricuspid Valve: The tricuspid valve is normal in structure and function. There is mild tricuspid regurgitation. The right ventricular systolic pressure is estimated to be at least 41 mmHg based on an estimated right atrial pressure of 3 mm Hg. Pulmonic Valve: The pulmonic valve is not well seen, but is grossly normal. There is mild pulmonic regurgitation. Great Vessels: The aortic root is normal size. The dimensions of the ascending aorta are normal. The IVC is of normal diameter and collapses greater than 50% with a sniff. This suggests a low right atrial pressure of 3 mm Hg. Pericardium/ Pleura There is no pericardial effusion. There is no pleural effusion. MMode/2D Measurements & Calculations LVIDd: 4.5 cm LVOT diam: 2.0 cm LVIDs: 2.8 cm Ao root diam: 2.6 cm FS: 37.9 % asc Aorta Diam: 3.2 cm IVSd: 1.00 cm Ao Arch Diam (Prox Trans): 2.9 cm LVPWd: 0.80 cm LV sarabia. diameter/BSA (cm/m^2): 2.7 LV sys. diameter/BSA (cm/m^2): 1.7 LA A2 area: 16.8 cm2 RA long axis: 4.5 cm LA A4 area: 16.7 cm2 RA area: 12.3 cm2 LA length (vol): 5.1 cm RA vol: 28.7 ml LA vol: 46.9 ml RA : 17.1 ml/m2 LA vol index: 28.0 ml/m2 IVC diam: 1.9 cm RVD1 (basal): 2.8 cm RVD2 (mid): 2.4 cm TAPSE: 2.0 cm Doppler Measurements & Calculations Ao V2 max: 154.5 cm/sec LVOT Max Mani: 96.3 cm/sec Ao V2 mean: 105.2 cm/sec LV V1 max P.7 mmHg Ao max P.5 mmHg LV V1 VTI: 21.7 cm Ao mean P.9 mmHg ANJEL(I,D): 1.9 cm2 Ao V2 VTI: 34.8 cm ANJEL(V,D): 1.9 cm2 sev ratio: 0.62 ANJEL indexed to BSA (cm^2/m^2): 1.1 MV E max mani: 126.5 cm/sec TR max mani: 307.0 cm/sec MV A max mani: 128.3 cm/sec TR max P.7 mmHg MV E/A: 0.99 PA V2 max: 91.2 cm/sec Med Peak E' Mani: 6.4 cm/sec PA V2 mean: 62.7 cm/sec E/E' med: 19.8 PA mean P.8 mmHg Lat Peak E' Mani: 7.4 cm/sec PA pr(Accel): 39.6 mmHg E/E' lat: 17.1 E/e' average: 18.5 MV dec time: 0.18 sec SV(LVOT): 64.7 ml Reading Physician:04:16 PM
== END ==
PROVIDERS: Family Provider Student in an Organized Health Care Education/Training Program; PCP Student in an Organized Health Care Education/Training Program; Referring Provider Student in an Organized Health Care Education/Training Program; Visit Provider Student in an Organized Health Care Education/Training Program
DX: I08.1 Rheumatic disorders of both mitral and tricuspid valves (principal); R55 Syncope and collapse
CPT/HCPCS: 93306

== ENCOUNTER → 2021-08-01 11:57 | Outpatient (CLI) | payer MEDICARE, OTHER, SELFPAY ==
--- NOTE | 2021-08-01 12:01 | DI.CT.S_ITS ---
PROCEDURE: CT ANGIO HEAD INDICATIONS: Please evaluate for vertebrobasilar insufficiency TECHNIQUE: Precontrast 4.5 mm thick angled axial sections acquired from the foramen magnum to the vertex. After the administration of intravenous contrast, 1 mm thick sections acquired through the [place] of [place]. Postcontrast 4.5 mm thick sections then re-acquired from the foramen magnum to the vertex. 10 mm thick oegumqg-fgbgvtiwl-maiceomcny (MIP) reformats were acquired of the central intracranial vasculature. For radiation dose reduction, the following was used: automated exposure control, adjustment of mA and/or kV according to patient size. COMPARISON: [facility], CT, CT HEAD/BRAIN WO CON, 04/12/2021, 7:53. [facility], US, US CAROTID DOPPLER BI, 05/08/2021, 13:00. FINDINGS: Image quality: Excellent. Anterior circulation: Intracranial internal carotid arteries are normal in size and flow. Is focal high-grade narrowing is seen involving the proximal left A2 segment, approximately 80%. The flow within the paired anterior cerebral arteries is otherwise normal and symmetric. The flow within the middle cerebral arteries is normal and symmetric. The anterior communicating artery is not well seen. No aneurysms are seen. 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 The flow within the posterior cerebral arteries is normal and symmetric. The distal vertebral arteries are overall small in size, with the left vertebral artery dominant to the right. No aneurysms are seen. CSF spaces: Ventricles are normal in size and shape. Basal cisterns are patent. No extra-axial fluid collections. Brain: No midline shift. No intracranial bleeds or masses. Box-white matter interface appears intact. Note is made of age-appropriate brain parenchymal volume loss and chronic small vessel ischemic changes. Skull and face: Calvarium and facial bones appear intact, without suspicious lesions. Sinuses: Visualized sinuses and mastoids are clear. 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 There is focal high-grade narrowing (approximately 80%) involving the proximal left A2 segment. If it would be helpful for clinical management decision making, please consider a dedicated, scheduled brain MRI (IAC protocol, without and with contrast) for further evaluation (assuming that there is no contraindication). Dictated by: Jourdan Garcia M.D. on 08/01/2021 at 15:04 Approved by: Jourdan Garcia M.D. on 08/01/2021 at 15:09
[2021-08-01 12:29] LABS: BUN Creatinine Ratio 22.3 (6-22); Blood Urea Nitrogen 25 mg/dL (7-17); Calcium 9.5 mg/dL (8.4-10.2); Carbon Dioxide 25 mmol/L (22-32); Chloride 104 mmol/L (98-107); Estimated Glomerular Filt Rate 51 mL/min (>60); Glucose 149 mg/dL (80-110); HEMOLYSIS < 15 (0-50); Potassium 4.3 mmol/L (3.4-5.1); Sodium 138 mmol/L (137-145)
== END ==
PROVIDERS: Family Provider Student in an Organized Health Care Education/Training Program; PCP Student in an Organized Health Care Education/Training Program; Referring Provider Student in an Organized Health Care Education/Training Program; Visit Provider Student in an Organized Health Care Education/Training Program
DX: G45.0 Vertebro-basilar artery syndrome (principal); N14.1 Nephropathy induced by other drugs, medicaments and biological substances; T50.8X5A Adverse effect of diagnostic agents, initial encounter
CPT/HCPCS: 36415; 70496; 80048

== ENCOUNTER → 2022-07-01 10:26 | Outpatient (CLI) | payer MEDICARE, OTHER, SELFPAY | PROVIDERS: Family Provider Student in an Organized Health Care Education/Training Program; PCP Student in an Organized Health Care Education/Training Program; Visit Provider Internal Medicine | DX: R30.0 Dysuria (principal) | CPT/HCPCS: 87077; 87086; 87186 ==

== ENCOUNTER → 2022-07-22 14:40 | Outpatient (CLI) | payer MEDICARE, OTHER, SELFPAY ==
--- NOTE | 2022-07-22 | DI.ECHO.S_ITS ---
[place]---------+ [facility] +---------+ : : [address] : [address] : : : : [id number] : : : : Phone: [phone]+ Echocardiogram Report + + :Name: ELIZABETH RODRIGUEZ Study Date: 07/22/2022 Height: 64 in : :[facility] ReadingLocation: Weight: 120 lb : : Gender: Female BSA: 1.6 m2 : :: 1945 Age: 76 yrs BP: 141/69 mmHg: :Reason For Study: CHRONIC SYSTOLIC HEART FAILURE : :Ordering Physician: HANNAH, : :CAITLYN Performed By: Luana Porter : :Referring: CAITLYN YOUNG : + + Interpretation Summary The left ventricle is normal in size. Left ventricular systolic function is normal. The ejection fraction is estimated to be 60-65%. Previous LVEF 25A?5%. Left ventricular systolic function has markedly improved compared to the previous exam. Diastolic parameters suggest a pseudonormalization pattern, consistent with probable elevated filling pressures. No significant change in diastolic dysfunction. The right ventricle is normal in size and function. There is mild tricuspid regurgitation. Compared to the prior echo exam, there has been a decrease in TR severity. The right ventricular systolic pressure is estimated to be at least 24 mmHg based on an estimated right atrial pressure of 3 mm Hg. Compared to the prior echo exam, there has been a decrease in the severity of pulmonary hypertension. There is aortic root sclerosis/calcification. Procedure: A two-dimensional transthoracic echocardiogram with color flow and Doppler was performed. Comparison is made with the echocardiogram of 03/02/2022. The study quality was technically adequate. A contrast injection of Definity was performed to improve assessment of LV function. The patient was in sinus rhythm with heart rates between 61-74 bpm during the exam. Left Ventricle: The left ventricle is normal in size. Proximal septal thickening is noted. There is no thrombus. The ejection fraction is estimated to be 60-65%. Left ventricular systolic function is normal. Left ventricular systolic function has markedly improved compared to the previous exam. Mid septum hypokinesis. Significant improvement in rest of the wall motion abnormalities. Diastolic parameters suggest a pseudonormalization pattern, consistent with probable elevated filling pressures. Right Ventricle: The right ventricle is normal in size and function. Atria: The left atrial size is normal. There has been no significant change since the previous study. Right atrial size is normal. There is no Doppler evidence for an interatrial shunt. Mitral Valve: The mitral valve leaflets appear borderline thickened, but open well. There is trace mitral regurgitation. Aortic Valve: The aortic valve is trileaflet. The aortic valve is slightly calcified. The aortic valve opens well. There is no aortic valve stenosis. No aortic regurgitation is present. Tricuspid Valve: The tricuspid valve is normal. There is mild tricuspid regurgitation. The right ventricular systolic pressure is estimated to be at least 24 mmHg based on an estimated right atrial pressure of 3 mm Hg. Compared to the prior echo exam, there has been a decrease in TR severity. Compared to the prior echo exam, there has been a decrease in the severity of pulmonary hypertension. Pulmonic Valve: The pulmonic valve is not well visualized. There is no pulmonic valvular regurgitation. Great Vessels: The aortic root is normal size. There is aortic root sclerosis/calcification. The dimensions of the ascending aorta are normal. Aortic arch not well visualized. The IVC is of normal diameter and collapses greater than 50% with a sniff. This suggests a low right atrial pressure of 3 mm Hg. Pericardium/ Pleura There is no pericardial effusion. There is no pleural effusion. MMode/2D Measurements & Calculations LVIDd: 4.0 cm LVOT diam: 1.6 cm LVIDs: 2.6 cm Ao root diam: 2.7 cm FS: 35.0 % asc Aorta Diam: 2.9 cm IVSd: 1.1 cm LVPWd: 1.0 cm LV sarabia. diameter/BSA (cm/m^2): 2.5 LV sys. diameter/BSA (cm/m^2): 1.7 LA A2 area: 11.8 cm2 RA long axis: 3.5 cm LA A4 area: 8.9 cm2 RA area: 8.1 cm2 LA length (vol): 3.9 cm RA vol: 16.3 ml LA vol: 23.0 ml RA : 10.3 ml/m2 LA vol index: 14.6 ml/m2 IVC diam: 1.5 cm RVD1 (basal): 3.4 cm LVLs ap4: 5.5 cm LVLd ap2: 7.0 cm TAPSE_phl: 1.9 cm LVLs ap2: 5.3 cm Doppler Measurements & Calculations Ao V2 max: 142.0 cm/sec LVOT Max Mani: 95.3 cm/sec Ao V2 mean: 97.6 cm/sec LV V1 max P.6 mmHg Ao max P.0 mmHg LV V1 VTI: 20.9 cm Ao mean P.0 mmHg ANJEL(I,D): 1.2 cm2 Ao V2 VTI: 34.4 cm ANJEL(V,D): 1.3 cm2 sev ratio: 0.61 ANJEL indexed to BSA (cm^2/m^2): 0.78 MV E max mani: 125.0 cm/sec TR max mani: 230.0 cm/sec MV A max mani: 109.0 cm/sec TR max P.2 mmHg MV E/A: 1.1 PA V2 max: 83.6 cm/sec Med Peak E' Mani: 6.3 cm/sec PA V2 mean: 58.4 cm/sec E/E' med: 19.9 PA mean P.0 mmHg Lat Peak E' Mani: 9.1 cm/sec PA pr(Accel): -7.9 mmHg E/E' lat: 13.8 E/e' average: 16.8 MV dec time: 0.24 sec SV(LVOT): 42.0 ml AV VR_phl: 0.67 ANJEL(VTI)/BSA_phl: 0.78 Reading Physician:09:32 AM
== END ==
PROVIDERS: Family Provider Student in an Organized Health Care Education/Training Program; PCP Family Medicine; Referring Provider Internal Medicine Cardiovascular Disease; Visit Provider Internal Medicine Cardiovascular Disease
DX: I07.1 Rheumatic tricuspid insufficiency (principal); I50.22 Chronic systolic (congestive) heart failure; I25.5 Ischemic cardiomyopathy
CPT/HCPCS: 93306

== ENCOUNTER → 2022-10-10 10:52 | Outpatient (CLI) | payer MEDICARE, OTHER, SELFPAY ==
--- NOTE | 2022-10-10 10:55 | DI.US.S_ITS ---
PROCEDURE: US ABDOMEN COMPLETE INDICATIONS: EPIGASTRIC PAIN TECHNIQUE: Real-time scanning was performed of the abdominal and retroperitoneal organs, with image documentation. COMPARISON: None. FINDINGS: Liver: Liver is normal in size and homogeneous in echotexture. Gallbladder: Trace sludge is seen within the gallbladder. No gallstones or gallbladder wall thickening. Biliary ducts: Intrahepatic bile ducts are non-dilated. Extrahepatic bile duct caliber measures 4.4 mm. Normal is 6-7 mm or less in diameter, or 10 mm or less post-cholecystectomy. Pancreas: Not visualized secondary to overlying bowel gas. Spleen: Spleen is normal in size and homogeneous in echotexture. Kidneys: Kidneys are normal in size and echotexture. Right kidney measures 8.3 cm long; left kidney measures 8.7 cm long. No hydronephrosis or nephrolithiasis. No solid masses. Aorta: Visualized aorta is normal in caliber at less than 3 cm. Iliacs: Proximal common iliac arteries are normal in caliber at less than 2.5 cm. IVC: Intrahepatic inferior vena cava is patent. Miscellaneous: No free abdominal fluid. IMPRESSION: 1. Trace sludge within the gallbladder. No gallstones or gallbladder wall thickening. 2. Otherwise, the remainder of the abdominal ultrasound is within normal limits. Dictated by: Alexei Madden M.D. on 10/10/2022 at 14:12 Approved by: Alexei Madden M.D. on 10/10/2022 at 14:14
--- NOTE | 2022-10-17 10:00 | PC.NURSE ---
Dr. Redd requests ONC referral to [facility]. This RN called pt and she prefers [place] or [place]. Message sent to Dr. Redd's workgroup
== END ==
PROVIDERS: Family Provider Student in an Organized Health Care Education/Training Program; PCP Family Medicine; Referring Provider Family Medicine; Visit Provider Family Medicine
DX: N18.30 Chronic kidney disease, stage 3 unspecified (principal)
CPT/HCPCS: 76700

== ENCOUNTER 2022-10-13 14:05 | Emergency (ER) | payer MEDICARE, OTHER, SELFPAY ==
[2022-10-13] VITALS (24 sets, daily range): BP systolic 114–174; BP diastolic 56–78; PULSE 59–79; RESP 16–26; TEMP 36.7; O2SAT 93–100; BMI 20.2
--- NOTE | 2022-10-13 14:34 | DI.RAD.S_ITS ---
PROCEDURE: XR CHEST 1V INDICATIONS: chest pain TECHNIQUE: One view of the chest was acquired. COMPARISON: [facility], CR, XR CHEST 1V, 04/12/2021, 7:38. FINDINGS: Surgical changes and devices: At least 1 cardiac stent can be seen. Lungs and pleura: Lungs are clear. No pleural effusions or pneumothorax. Mediastinum: The cardiac contours are within normal limits. The aorta demonstrates calcification and tortuosity. Bones and chest wall: No suspicious bony lesions. Age-appropriate bony degenerative changes are seen. Overlying soft tissues appear unremarkable. IMPRESSION: Portable chest within normal limits for age. Postoperative and degenerative changes are seen. Dictated by: Jourdan Garcia M.D. on 10/13/2022 at 14:43 Approved by: Jourdan Garcia M.D. on 10/13/2022 at 14:44
[2022-10-13 14:57] LABS: Add Manual Diff / Slide Review NO; Basophils Absolute Auto 0 /uL (0-100); Basophils Percent Auto 0.6 % (0-2); Eosinophils Absolute Auto 100 /uL (0-450); Eosinophils Percent Auto 0.8 % (2-4); Hematocrit 35.2 % (36-46); Hemoglobin 11.8 g/dL (12.0-16.0); Lymphocytes Absolute Auto 2400 /uL (1100-4500); Lymphocytes Percent Auto 27.5 % (25-40); Mean Corpuscular HGB Conc 33.6 % (30-36); Mean Corpuscular Hemoglobin 29.6 PG (26-34); Mean Corpuscular Volume 88.2 fL (80-100); Monocytes Absolute Auto 600 /uL (0-900); Monocytes Percent Auto 7.1 % (3-14); Neutrophils Absolute Auto 5500 /uL (1500-7000); Platelet Count 258 X10^3/uL (150-400); Red Blood Cell Count 3.99 X10^6/uL (4.0-5.2); Red Cell Distribution Width 14.3 % (11.6-14.8); White Blood Cell Count 8.6 X10^3/uL (4.5-11.0)
--- NOTE | 2022-10-13 15:08 | ED_ITS ---
HPI - Chest Pain General Chief Complaint: Chest Pain Stated Complaint: tightness on chest, upper back/ abd pain Time Seen by Provider: 10/13/22 15:08 Source: patient Mode of arrival: Family Vehicle Limitations: no limitations History of Present Illness HPI narrative: 76-year-old female with history of coronary artery disease and multiple stents placed in February presents with multiple complaints. She states that she has had bilateral anterior chest pain off and on for many months. She denies any obvious provocation, palliation or radiation of this pain. She states that it tends to be sharp and stabbing and not associated with cardiac equivalent such as dizziness, weakness or lightheadedness. She denies shortness of breath, exertional symptoms or exercise fatigue. Additionally over the past 2 months or so she has developed mid epigastric pain that seems to be worse when she lies down and with certain foods. She denies nausea or vomiting. She does state that it seems to radiate to her back. She states she had an ultrasound a few days ago to evaluate this, the images have been reviewed and demonstrate gallbladder sludge but no evidence of cholecystitis or cholelithiasis. She denies recent travel, history of blood clot or known cancer. She denies lower extremity pain, redness or swelling Related Data Home Medications Medication Instructions Recorded Confirmed Test Strips - Freestyle Lite 06/06/20 07/01/22 blood-glucose meter 06/06/20 07/01/22 Previous Rx's Medication Instructions Recorded blood sugar diagnostic (Blood #100 ea 05/30/21 Glucose Test strips) lancets 28 gauge (FreeStyle #100 ea 06/07/21 Lancets) flash glucose scanning reader #1 ea 06/11/21 (FreeStyle Johnny 2 [place]) flash glucose sensor (FreeStyle #2 ea 12/17/21 Johnny 2 Sensor kit) ibandronate 150 mg tablet 150 mg PO QMONTH #3 tabs 03/14/22 spironolactone 25 mg tablet 25 mg PO DAILY #90 tabs 03/14/22 acetaminophen 500 mg tablet 500 mg PO Q6H PRN fever or pain 05/03/22 #90 tabs aspirin 81 mg tablet,delayed 81 mg PO DAILY #90 tabs 05/03/22 release atorvastatin 80 mg tablet 80 mg PO BEDTIME #90 tabs 05/03/22 clopidogrel 75 mg tablet 75 mg PO DAILY #90 tabs 05/03/22 levothyroxine 100 mcg tablet 100 mcg PO DAILY #90 tabs 05/03/22 lisinopril 40 mg tablet 40 mg PO DAILY #90 tabs 05/03/22 metoprolol succinate 25 mg 37.5 mg PO BID #270 tabs 05/03/22 tablet,extended release 24 hr nitroglycerin 0.4 mg sublingual 0.4 mg sublingual Q5-15M PRN chest 05/03/22 tablet pain #30 tabs insulin lispro 100 unit/mL 5 unit (0.05 mL) SUBCUT QAC Type 2 05/16/22 subcutaneous pen Diabetes Mellitus #15 mL insulin lispro sliding scale See Rx Instructions .Route 05/16/22 .COMPLEX #1 units pen needle, diabetic 32 gauge x #100 ea 06/03/22/ (BD Ultra-Fine Shakila Pen Needle) insulin glargine 100 unit/mL (3 See Rx Instructions .Route 08/28/22 mL) subcutaneous pen (Lantus .COMPLEX #15 mL Solostar U-100 Insulin) pantoprazole 40 mg tablet,delayed 40 mg PO DAILY #90 tabs 10/11/22 release Allergies Allergy/AdvReac Type Severity Reaction Status Date / Time sulfamethoxazole AdvReac Mild mouth ulcer Verified 10/13/22 14:25 [From Bactrim] trimethoprim [From Bactrim] AdvReac Mild mouth ulcer Verified 10/13/22 14:25 pioglitazone AdvReac Verified 10/13/22 14:25 Review of Systems Review of Systems Narrative: GENERAL: Denies chills, fatigue, malaise, fever, sweats. HEENT: Denies sinus pain, ear pain, sore throat, difficulty swallowing, dizziness. RESPIRATORY: See HPI CARDIOVASCULAR: See HPI GASTROINTESTINAL: See HPI : Denies dysuria, frequency, incontinence, hematuria, urinary retention. MUSCULOSKELETAL: denies weakness, joint pain, or bony pain SKIN: Denies rash, skin lesions, or other NEUROLOGIC: Denies weakness, headache, numbness, change in speech, confusion, seizures, incoordination. PSYCHIATRIC: No concerning psychosocial issues. 12 point review of systems is negative except for those stated above Patient History Medical History Acquired hypothyroidism (12/13/14) Cataracts, bilateral (2012) CKD (chronic kidney disease) stage 3, GFR 30-59 ml/min Coronary artery stenosis Diabetes (~1996) Essential hypertension (12/13/14) GERD (gastroesophageal reflux disease) Gout Gout involving toe (09/27/15) History of stroke (04/18/17) Hyperlipemia Hyperuricemia (09/27/15) Hypothyroidism Osteopenia (06/28/16) Osteopenia Rheumatoid arthritis (~1996) Shoulder fracture, right (05/2016) Stroke (2009) Type 2 diabetes mellitus with kidney complication, with long-term current use of insulin Surgical History No history of previous surgery Family History Father No problems noted. Mother No problems noted. Social History household members: spouse Smoking Status: Never smoker alcohol intake: never substance use type: does not use Smoking Status: Never smoker Substance Use Type: does not use Exam Narrative Exam Narrative: GENERAL: [76] year old patient appears stated age. Well-developed patient, in mild distress. HEAD: Atraumatic. Normocephalic. EYES: Pupils equal round and reactive. Extraocular motions intact. No scleral icterus. No injection or drainage. ENT: Nose without bleeding, purulent drainage. Throat without erythema, tonsillar hypertrophy or exudate. Airway patent. NECK: Trachea midline. Non tender CARDIOVASCULAR: Regular rate and rhythm without murmurs, gallops, or rubs. RESPIRATORY: Clear to auscultation. Breath sounds equal bilaterally. No wheezes, rales, or rhonchi. GASTROINTESTINAL: Abdomen soft, mild reproducible epigastric pain, no rebound, nondistended. EXTREMITIES: No edema or joint tenderness. BACK: Nontender without deformity or crepitance. No flank tenderness. NEURO: AOx3. SKIN: No rash or erythema of visible areas Initial Vital Signs Initial Vital Signs: Vital Signs Temperature 98.1 F 10/13/22 14:25 Pulse Rate 70 10/13/22 14:25 Respiratory Rate 17 10/13/22 14:25 Blood Pressure 174/77 H 10/13/22 14:25 Pulse Oximetry 100 10/13/22 14:25 Oxygen Delivery Method Room Air 10/13/22 14:25 Course Orders Ordered: ED Orders 10/13/22 14:34 XR chest 1V Stat 10/13/22 14:35 EKG-12 Lead Stat 10/13/22 14:49 Complete Blood Count AUTO DIFF Stat Comprehensive Metabolic Panel Stat D Dimer Stat Lipase Stat Magnesium Stat PTT Partial Thromboplastin Selvin Stat Prothrombin Time INR Stat Troponin & CK Cardiac Panel Stat 10/13/22 15:56 CT angio chest abdomen pelvis Stat Nitroglycerin (Nitroglycerin 0.4 Mg Sl Tab) 0.4 mg SL [id number] PRN PRN Reason: Chest Pain Last Admin: 10/13/22 15:26 Dose: 0.4 mg Documented By: Admin: 10/13/22 15:12 Dose: 0.4 mg Documented By: RL Discontinued Medications Hydrocodone Bitart/Acetaminophen (Hydrocodone/Acet 5/325 Prepack) 1 bottle MISC SEEINSTR ONE Stop: 10/13/22 17:43 Aspirin (Aspirin 81 Mg Chew Tab) 324 mg PO NOW ONE Stop: 10/13/22 14:35 Last Admin: 10/13/22 15:10 Dose: 324 mg Documented By: BELKIS Sodium Chloride (Normal Saline 0.9%) 1,000 mls @ 1,000 mls/hr IV BOLUS ONE Stop: 10/13/22 17:29 Last Admin: 10/13/22 16:33 Dose: 1,000 mls/hr Documented By: AMARA Ondansetron HCl (Ondansetron 4 Mg Odt Prepack) 1 bottle MISC SEEINSTR ONE Stop: 10/13/22 17:43 Vital Signs Vital signs: Vital Signs - 8 hr 10/13/22 14:25 10/13/22 15:15 10/13/22 15:15 Temperature 98.1 F Pulse Rate 70 77 Respiratory Rate 17 17 Blood Pressure 174/77 H 138/77 Pulse Oximetry 100 98 Oxygen Delivery Method Room Air Room Air 10/13/22 15:27 10/13/22 15:27 10/13/22 15:30 Temperature Pulse Rate 73 Respiratory Rate 18 Blood Pressure 137/78 126/70 Pulse Oximetry 99 Oxygen Delivery Method 10/13/22 15:30 10/13/22 15:35 10/13/22 15:35 Temperature Pulse Rate 79 75 Respiratory Rate 25 H 24 Blood Pressure 122/65 Pulse Oximetry 98 98 Oxygen Delivery Method 10/13/22 15:40 10/13/22 15:40 10/13/22 15:45 Temperature Pulse Rate 75 Respiratory Rate 17 Blood Pressure 129/68 148/70 H Pulse Oximetry 99 Oxygen Delivery Method 10/13/22 15:45 10/13/22 15:50 10/13/22 15:50 Temperature Pulse Rate 73 71 Respiratory Rate 20 19 Blood Pressure 132/69 Pulse Oximetry 99 99 Oxygen Delivery Method Room Air 10/13/22 15:55 10/13/22 15:55 10/13/22 16:09 Temperature Pulse Rate 71 68 Respiratory Rate 19 Blood Pressure 127/63 Pulse Oximetry 99 93 Oxygen Delivery Method 10/13/22 16:10 10/13/22 16:10 10/13/22 16:15 Temperature Pulse Rate 66 Respiratory Rate 17 Blood Pressure 123/58 L 123/60 Pulse Oximetry 99 Oxygen Delivery Method Room Air 10/13/22 16:15 10/13/22 16:20 10/13/22 16:20 Temperature Pulse Rate 66 62 Respiratory Rate 20 Blood Pressure 131/59 L Pulse Oximetry 99 99 Oxygen Delivery Method Room Air Room Air 10/13/22 16:25 10/13/22 16:25 10/13/22 16:30 Temperature Pulse Rate 66 Respiratory Rate 26 H Blood Pressure 127/58 L 121/60 Pulse Oximetry 98 Oxygen Delivery Method 10/13/22 16:30 10/13/22 16:35 10/13/22 16:35 Temperature Pulse Rate 62 61 Respiratory Rate 21 18 Blood Pressure 121/58 L Pulse Oximetry 98 99 Oxygen Delivery Method Room Air 10/13/22 16:40 10/13/22 16:40 10/13/22 16:45 Temperature Pulse Rate 60 Respiratory Rate 18 Blood Pressure 118/56 L 122/57 L Pulse Oximetry 99 Oxygen Delivery Method 10/13/22 16:45 10/13/22 16:50 10/13/22 16:50 Temperature Pulse Rate 60 61 Respiratory Rate 19 20 Blood Pressure 114/57 L Pulse Oximetry 99 99 Oxygen Delivery Method Room Air 10/13/22 16:55 10/13/22 16:55 10/13/22 17:00 Temperature Pulse Rate 61 Respiratory Rate 18 Blood Pressure 115/57 L 121/58 L Pulse Oximetry 99 Oxygen Delivery Method 10/13/22 17:00 Temperature Pulse Rate 63 Respiratory Rate 17 Blood Pressure Pulse Oximetry 99 Oxygen Delivery Method Room Air MDM - Chest Pain Lab Data 10/13/22 14:49 10/13/22 14:49 Labs: Lab Results 10/13/22 10/13/22 10/13/22 Range/Units 14:49 14:49 14:49 WBC 8.6 (4.5-11.0) X10^3/uL RBC 3.99 L (4.0-5.2) X10^6/uL Hgb 11.8 L (12.0-16.0) g/dL Hct 35.2 L (36-46) % MCV 88.2 (80-100) fL MCH 29.6 (26-34) PG MCHC 33.6 (30-36) % RDW 14.3 (11.6-14.8) % Plt Count 258 (150-400) X10^3/uL Neut % (Auto) 64.0 (50-75) % Lymph % (Auto) 27.5 (25-40) % Barton % (Auto) 7.1 (3-14) % Eos % (Auto) 0.8 L (2-4) % Baso % (Auto) 0.6 (0-2) % Neut # (Auto) 5500 (3615-8725) /uL Lymph # (Auto) 2400 (4846-0958) /uL Barton # (Auto) 600 (0-900) /uL Eos # (Auto) 100 (0-450) /uL Baso # (Auto) 0 (0-100) /uL PT 12.5 (10.1-12.7) SECONDS INR 1.1 (0.9-1.3) APTT 28 (26-36) SECONDS D-Dimer (<500) ng/ml Sodium 138 (137-145) mmol/L Potassium 4.1 (3.4-5.1) mmol/L Chloride 106 (98-107) mmol/L Carbon Dioxide 22 (22-32) mmol/L BUN 23 H (7-17) mg/dL Creatinine 1.10 H (0.52-1.04) mg/dL Estimated GFR 52 L (>60) mL/min BUN/Creatinine Ratio 20.9 (6-22) Glucose 143 H (80-110) mg/dL Calcium 9.1 (8.4-10.2) mg/dL Magnesium 2.2 (1.6-2.3) mg/dL Total Bilirubin 0.4 (0.2-1.3) mg/dL AST 35 (14-36) IU/L ALT 32 (<35) IU/L Alkaline Phosphatase 60 (38-126) U/L Total Creatine Kinase 101 (30-135) U/L Troponin I < 0.012 (0.01-0.034) ng/mL Total Protein 7.1 (6.3-8.2) g/dL Albumin 4.1 (3.5-5.0) g/dL Globulin 3.0 (1.7-4.1) g/dL Albumin/Globulin Ratio 1.4 (1.0-2.8) Lipase 66 (23-300) U/L 10/13/22 Range/Units 14:49 WBC (4.5-11.0) X10^3/uL RBC (4.0-5.2) X10^6/uL Hgb (12.0-16.0) g/dL Hct (36-46) % MCV (80-100) fL MCH (26-34) PG MCHC (30-36) % RDW (11.6-14.8) % Plt Count (150-400) X10^3/uL Neut % (Auto) (50-75) % Lymph % (Auto) (25-40) % Barton % (Auto) (3-14) % Eos % (Auto) (2-4) % Baso % (Auto) (0-2) % Neut # (Auto) (1616-9440) /uL Lymph # (Auto) (7883-2606) /uL Barton # (Auto) (0-900) /uL Eos # (Auto) (0-450) /uL Baso # (Auto) (0-100) /uL PT (10.1-12.7) SECONDS INR (0.9-1.3) APTT (26-36) SECONDS D-Dimer 553 H (<500) ng/ml Sodium (137-145) mmol/L Potassium (3.4-5.1) mmol/L Chloride (98-107) mmol/L Carbon Dioxide (22-32) mmol/L BUN (7-17) mg/dL Creatinine (0.52-1.04) mg/dL Estimated GFR (>60) mL/min BUN/Creatinine Ratio (6-22) Glucose (80-110) mg/dL Calcium (8.4-10.2) mg/dL Magnesium (1.6-2.3) mg/dL Total Bilirubin (0.2-1.3) mg/dL AST (14-36) IU/L ALT (<35) IU/L Alkaline Phosphatase (38-126) U/L Total Creatine Kinase (30-135) U/L Troponin I (0.01-0.034) ng/mL Total Protein (6.3-8.2) g/dL Albumin (3.5-5.0) g/dL Globulin (1.7-4.1) g/dL Albumin/Globulin Ratio (1.0-2.8) Lipase (23-300) U/L ECG Data Interpretation: [1435 EKG is normal sinus rhythm rate [67 ] and free of any signs of ischemia or ectopy. No ST segmental elevation or depression. No T wave inversions. Right bundle-branch block unchanged from prior MDM Narrative Medical decision making narrative: CC: 76-year-old female with chest, abdomen and back pain Complicating co-morbidities: age, CAD, GERD Data collected from: Patient Medical records reviewed: Prior notes reviewed in our EMR Differential considered, but not limited to: Cardiac ischemia versus pulmonary embolism versus aortic aneurysm versus dissection versus pneumonia versus eso phageal spasm versus gallbladder disease versus pancreatitis versus other Exam documented above, pertinent findings include: Heart rate regular, lungs clear, epigastric pain on palpation, abdomen otherwise soft Lab Test results independently reviewed as above. Pertinent findings: No leukocytosis or left shift, no signs of anemia, D-dimer below age corrected cutoff, electrolytes and kidney function at baseline Independently reviewed EKG as above Imaging studies independently reviewed: CT of chest abdomen and pelvis thankfully demonstrates no vascular abnormality such as PE, AAA or dissection, however unfortunately there is a newly discovered mass at the head of the pancreas, multiple concerning lesions in both lung and liver concerning for metastatic disease. Treatments:NG, ASA, saline Re-evaluations: Patient completely symptom free at time of discharge Discussion: Patient has had various episodes of chest pain as well as upper abdomen and back pain off and on for the past few months. Multiple diagnoses considered as noted above. In the end labs are largely reassuring and imaging suggests likely newly discovered pancreatic cancer with possible Mets to lung and liver. No PE, dissection or cardiac ischemia noted. Pain is well controlled. Patient plans to follow closely with primary care for advice moving forward. Disposition: see below, along with detailed discharge instructions that have been reviewed with patient as well as indications for ED re-evaluation and additional outpatient follow up Discharge Plan Departure Patient Disposition: Home Clinical Impression: Mass of pancreas, Pulmonary nodules, Liver lesion Instructions: Pancreatic Cancer Activity Restrictions/Additional Instructions: *You have been diagnosed with [abdominal pain in concerning findings on imaging include a mass on the head of your pancreas and strong concern for metastatic le sions in your lungs and liver.] *What to do: *Please continue to take your regular medications as directed. *Please follow up with your primary care provider in 2-3 days, call for an appointment. Let them know you were seen in the Emergency Department and that we ask that you be seen in follow up. We will electronically transmit a record of today's note if your PCP is in our system *Return to Emergency Department if you should have any new, worsening or concerning symptoms, such as [fever greater than 101 F, shaking chills, worsening pain, persistent vomiting or other bothersome symptoms] Prescriptions: No Action (DME) Blood Glucose Test Strip See Rx Instructions .ROUTE .MEDSUPPLY Qty: 100 6RF Rx Instructions: Use to check blood glucose twice daily (DME) lancets [FreeStyle Lancets] 28 gauge misc See Rx Instructions .ROUTE .COMPLEX Qty: 100 0RF Dose Instruction: USE TO TEST BLOOD SUGAR TWICE DAILY Rx Instructions: USE TO TEST BLOOD SUGAR TWICE DAILY (DME) FreeStyle Johnny 2 [place] Misc See Rx Instructions .Route Qty: 1 0RF Rx Instructions: As directed to check blood sugar twice a day (DME) FreeStyle Johnny 2 Sensor Kit See Rx Instructions .Route Qty: 2 5RF Rx Instructions: As directed to check blood sugar twice a day ibandronate 150 mg tablet 150 mg PO QMONTH Qty: 3 1RF spironolactone 25 mg tablet 25 mg PO DAILY Qty: 90 1RF aspirin 81 mg tablet,delayed release (DR/EC) 81 mg PO DAILY Qty: 90 3RF atorvastatin 80 mg tablet 80 mg PO BEDTIME Qty: 90 3RF clopidogrel 75 mg tablet 75 mg PO DAILY Qty: 90 3RF levothyroxine 100 mcg tablet 100 mcg PO DAILY Qty: 90 3RF metoprolol succinate 25 mg tablet extended release 24 hr 37.5 mg PO BID Qty: 270 3RF lisinopril 40 mg tablet 40 mg PO DAILY Qty: 90 3RF nitroglycerin 0.4 mg tablet, sublingual 0.4 mg sublingual Q5-15M PRN (Reason: chest pain) Qty: 30 11RF Rx Instructions: do not exceed 3 doses per episode acetaminophen 500 mg tablet 500 mg PO Q6H PRN (Reason: fever or pain) Qty: 90 3RF insulin lispro 100 unit/mL insulin pen 5 unit SUBCUT QAC MDD 25 units Qty: 15 3RF Rx Instructions: Use 5 units before meal, plus appropriate sliding scale amount Add 5 units premeal (rapid acting) insulin, and a sliding scale of 2 units for every 50mg/dL glucose over 100. OK to dose rapid acting insulin based on CGM data. insulin lispro sliding scale See Rx Instructions .ROUTE .COMPLEX Qty: 1 0RF Rx Instructions: sliding scale dosage: administer an additional 2 units of insulin Add 5 units premeal (rapid acting) insulin, and a sliding scale of 2 units for every 50mg/dL glucose over 100. OK to dose rapid acting insulin based on CGM data. (DME) pen needle, diabetic [BD Ultra-Fine Shakila Pen Needle] 32 gauge x 5/32 needle See Rx Instructions .Route Qty: 100 3RF Rx Instructions: As directed to 4 times daily for insulin injections. insulin glargine [Lantus Solostar U-100 Insulin] 100 unit/mL (3 mL) insulin pen See Rx Instructions .ROUTE .COMPLEX Qty: 15 11RF Dose Instruction: INJECT 16 UNITS UNDER THE SKIN EVERY EVENING Rx Instructions: INJECT 16 UNITS UNDER THE SKIN EVERY EVENING pantoprazole 40 mg tablet,delayed release (DR/EC) 40 mg PO DAILY Qty: 90 3RF (DME) blood-glucose meter Misc See Rx Instructions .ROUTE .MEDSUPPLY Rx Instructions: Use to check blood glucose twice daily (DME) Test Strips - Freestyle Lite See Rx Instructions .Route .MEDSUPPLY Dose Instruction: QDAY; Rx Instructions: Use one freestyle test strip to test blood sugar twice daily Referrals: Catie Redd DO [Primary Care Provider] - Isabella Lim MD [Physician] - Stand Alone Forms: Patient Portal/API
[2022-10-13] MEDS: ASPIRIN 81 MG CHEW TAB 324 MG PO (15:10)
[2022-10-13 15:11] LABS: INR 1.1 (0.9-1.3); Prothrombin Time 12.5 SECONDS (10.1-12.7)
[2022-10-13] MEDS: NITROGLYCERIN 0.4 MG SL TAB SL ×2 (15:12→15:26)
[2022-10-13 15:14] LABS: PTT Partial Thromboplastin Tim 28 SECONDS (26-36)
[2022-10-13 15:21] LABS: D Dimer 553 ng/ml (<500)
[2022-10-13 15:22] LABS: Alanine Aminotransferase 32 IU/L (<35); Albumin 4.1 g/dL (3.5-5.0); Albumin Globulin Ratio 1.4 (1.0-2.8); Alkaline Phosphatase 60 U/L (38-126); Aspartate Aminotransferase 35 IU/L (14-36); BUN Creatinine Ratio 20.9 (6-22); Bilirubin Total 0.4 mg/dL (0.2-1.3); Blood Urea Nitrogen 23 mg/dL (7-17); Calcium 9.1 mg/dL (8.4-10.2); Carbon Dioxide 22 mmol/L (22-32); Chloride 106 mmol/L (98-107); Creatine Kinase 101 U/L (30-135); Estimated Glomerular Filt Rate 52 mL/min (>60); Glucose 143 mg/dL (80-110); HEMOLYSIS < 15 (0-50); Lipase 66 U/L (23-300); Magnesium 2.2 mg/dL (1.6-2.3); Potassium 4.1 mmol/L (3.4-5.1); Sodium 138 mmol/L (137-145); Total Protein 7.1 g/dL (6.3-8.2)
[2022-10-13 15:33] LABS: Troponin I < 0.012 ng/mL (0.01-0.034)
--- NOTE | 2022-10-13 15:56 | DI.CT.S_ITS ---
PROCEDURE: CT ANGIO CHEST ABDOMEN PELVIS INDICATIONS: chest/abd/back pain, HTN TECHNIQUE: Precontrast 5 mm thick sections acquired from the lung apices to the iliac crests. After the administration of intravenous contrast, 2.5 mm thick sections again acquired from the lung apices to the iliac crests. Maximum intensity projection (MIP) oblique sagittal and coronal reformats were then acquired. For radiation dose reduction, the following was used: automated exposure control. COMPARISON: [facility], CR, XR CHEST 1V, 10/13/2022, 14:43. [facility], CT, CT CHEST WO CON, 04/12/2021, 10:06. FINDINGS: Image quality: Excellent. AORTA: On precontrast imaging, no hyperdense mural hematomas can be seen. On postcontrast imaging, no aortic aneurysm is seen. The ascending thoracic aorta measures 3.2 cm transversely on coronal images. The abdominal aorta demonstrates normal caliber. CHEST: Lungs and pleura: Numerous pulmonary nodules are seen, with spiculation. These are new compared to the 04/12/[address] For example, within the right lower lobe, there is a 13 x 11 mm nodule, as on series 6, image 198. Within the left lower lobe posteriorly and inferiorly, there is a 10 x 8 mm nodule, as on series 6, image 112. No focal infiltrates are seen. No pneumothorax or pleural effusions are seen. Mediastinum: Prominent coronary artery calcification is seen. Heart size is normal. No pericardial effusion. No mediastinal or hilar adenopathy by size criteria. Central pulmonary arteries are normal in size. Esophagus is normal in caliber. No hiatal hernias. Bones and chest wall: No axillary adenopathy by size criteria. Thyroid gland is small in size . No suspicious bony lesions. No vertebral body compression fractures. ABDOMEN: Vasculature: Celiac trunk and mesenteric arteries are patent. Renal arteries are also patent. Solid organs: Within the liver, if you poorly defined hypodense lesions are seen, for example on series 5, image 34, measuring 11 mm. Gallbladder wall is not thickened . Biliary system is non dilated. There is abnormal fullness seen within the head of the pancreas, measuring approximately 3.3 cm. Spleen is normal in size and enhancement. Incidental note is made of an accessory splenule along the hilum of the primary spleen. No adrenal nodules. Both kidneys are normal in size and enhancement, without hydronephrosis. Peritoneum and bowel: No free fluid or air. There is moderate colonic wall thickening seen distally, beginning at the level of the proximal transverse colon and continuing through the rectum. Colonic diverticulosis is seen, without findings of active diverticulitis. No dilated loops of small bowel are seen. Nodes and vessels: No retroperitoneal or mesenteric adenopathy by size criteria. Inferior vena cava is normal in morphology. Miscellaneous: No ventral hernias. PELVIS: Genitourinary: Bladder wall thickness is normal. Miscellaneous: No inguinal hernias or adenopathy. No ventral hernias. Bones: No suspicious bony lesions. No vertebral body compression fractures. IMPRESSION: No acute aortic process is seen. Interval development of several pulmonary nodules. Metastatic disease is presumed. Abnormal fullness seen within the head of the pancreas, which appears new compared to prior imaging. There is strong concern raised for an underlying pancreatic mass. Moderate suspicion for liver metastases. Moderate distal colonic wall thickening can be seen. Please correlate with potential infectious and inflammatory causes of colitis, including C. difficile colitis. No findings of perforation or abscess can be seen. Additional findings: Accessory splenule Note: Case discussed by telephone with Dr. White at 4:08 p.m. [place] time on October 13, 2022. Dictated by: Jourdan Garcia M.D. on 10/13/2022 at 16:02 Approved by: Jourdan Garcia M.D. on 10/13/2022 at 16:09
--- NOTE | 2022-10-13 15:59 | PC.NURSE ---
Patient states after 2nd dose of nitroglycerin she currently does not have any chest pain, 0/10. I informed her to call me with the call light if she has any return of her chest pain. Patient expressed understanding.
[2022-10-13] MEDS: SODIUM CHLORIDE 0.9% 1,000 ML 1000 ML IV (16:33)
--- NOTE | 2022-10-13 16:39 | PC.NURSE ---
Patient denies any chest pain, back pain, or abdominal pain at this time. Provider made aware.
[2022-10-13] MEDS: ONDANSETRON 4 MG ODT PREPACK 1 BOTTLE MISC (18:27)
[2022-10-13] MEDS: HYDROCODONE/ACET 5/325 PREPACK 1 BOTTLE MISC (18:27)
== END 2022-10-13 18:36 | disposition home or self-care (01) ==
PROVIDERS: Emergency Provider Emergency Medicine; Family Provider Student in an Organized Health Care Education/Training Program; PCP Family Medicine
DX: K86.89 Other specified diseases of pancreas (principal); R91.8 Other nonspecific abnormal finding of lung field; K76.9 Liver disease, unspecified; Z79.899 Other long term (current) drug therapy
CPT/HCPCS: 36415; 71045; 71275; 74174; 80053; 82550; 82962; 83690; 83735; 84484; 85025; 85379; 85610; 85730; 93005; 96360; 96361; 99284; Q9967

== ENCOUNTER → 2022-10-24 11:54 | Outpatient (CLI) | payer MEDICARE, OTHER, SELFPAY ==
--- NOTE | 2022-10-24 11:55 | DI.CT.S_ITS ---
PROCEDURE: CT CHEST ABD PEL W CON INDICATIONS: pancreatic mass TECHNIQUE: After the administration of oral and intravenous contrast, axial sections acquired from the supraclavicular neck to the pubic symphysis. Coronal and sagittal reformats were performed. For radiation dose reduction, the following was used: automated exposure control, adjustment of mA and/or kV according to patient size. COMPARISON: [facility], CT, CT CHEST WO CON, 04/12/2021, 10:06. [facility], CT, CT ANGIO CHEST ABDOMEN PELVIS, 10/13/2022, 16:00. FINDINGS: Image quality: Excellent. CHEST: Lower Neck: No enlarged lymph nodes. Thyroid: Unremarkable. Axillae: No enlarged lymph nodes. Chest Wall: Unremarkable. Lungs and Airways: 1.1 cm right basilar pulmonary nodule is redemonstrated. 8 mm medial right upper lobe pulmonary nodule is redemonstrated (series 7/image 27). Bilateral pulmonary nodules in a random distribution are redemonstrated and appear similar in size to the study dated October 13, 2022. No acute airspace opacities. Pleura: No pneumothorax or pleural effusions. Heart: Heart size is normal. No pericardial effusion. Thoracic Vessels: The aorta and pulmonary arteries demonstrate normal size. Scattered atheromatous calcifications are present within the aortic arch. Mediastinum and Darya: No enlarged lymph nodes. Esophagus: No wall thickening. No hiatal hernia. ABDOMEN: Liver: Multiple hypodense pulmonary lesions are redemonstrated including a 8 mm nodule at the dome of the right lobe (series 6/image 67), a 1.8 x 1.1 cm mass within hepatic segment III (series 6/image 81), a 1.0 cm caudate lobe lesion, and a 1.2 cm lesion within hepatic segment IV (series 6/image 85). Gallbladder: Unremarkable. Biliary ducts: Unremarkable. Pancreas: The head of the pancreas demonstrates homogeneous enhancement on both the arterial and venous phases. The body and tail of the pancreas are diffusely hypodense throughout with a thin rim of what may be normal pancreatic tissue. Findings raise the suspicion for a soft tissue mass within the dilated pancreatic duct. Spleen: Unremarkable. A small splenule is present near the hilum. Adrenal Glands: Unremarkable. Kidneys and Ureters: Unremarkable. Stomach and Bowel: Stomach, small bowel loops, and colon are unremarkable. There are scattered colonic diverticula. No evidence for diverticulitis. Peritoneum: No abnormal intraperitoneal fluid. No free air. Ventral Wall: No hernia. Abdominal Nodes: No retroperitoneal or mesenteric adenopathy by size criteria. Vessels: Aorta and inferior vena cava are normal in size. There are scattered atheromatous calcifications throughout the aorta and iliac arteries bilaterally. PELVIS: Pelvic Organs: Unremarkable. Bladder: Unremarkable. Pelvic Nodes: No enlarged lymph nodes. Miscellaneous: No inguinal hernias are seen. Bones: Unremarkable. IMPRESSION: 1. Multiple pulmonary nodule similar in extent and size to the comparison CT dated October 13, 2022 suspicious for pulmonary metastasis. 2. Findings suspicious for intraductal mass within the body and tail of the pancreas. Given the hypodense appearance. 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 The head of the pancreas has a normal appearance. 3. Multiple suspicious hypodense hepatic lesions suspicious for hepatic metastasis. 4. Diverticulosis. No acute diverticulitis. Dictated by: Tori Hernandez M.D. on 10/24/2022 at 14:20 Approved by: Tori Hernandez M.D. on 10/24/2022 at 14:34
== END ==
PROVIDERS: Family Provider Student in an Organized Health Care Education/Training Program; PCP Family Medicine; Referring Provider Family Medicine; Visit Provider Family Medicine
DX: K86.89 Other specified diseases of pancreas (principal); R91.8 Other nonspecific abnormal finding of lung field; K76.9 Liver disease, unspecified; K57.90 Diverticulosis of intestine, part unspecified, without perforation or abscess without bleeding
CPT/HCPCS: 71260; 74177; Q9967